=== PATIENT | female | born 1970 | race African-American/Black ===

== ENCOUNTER → 2016-11-16 | Outpatient (CLI) | payer OTHER ==
[2016-02-12 10:56] VITALS: BP 134/76
[~2016-11-16] MED LIST: CARV3.122 PO; CHOL500050 PO; DILT180C2 PO; HYDR10SY8 PO; HYDR25TA PO; HYDR50TA PO; LISI-338 PO; LISI2.5T PO; LOSA25TA4 PO; MEDR10TA3 PO; METF500T4 PO; OMEP40CA5 PO; OXYC-323 PO; PROAIR HFA8.5 GM INH; SIMV20TA3 PO; TRAZ100T12 PO; TRAZ150T55 PO; TRAZ50TA15 PO; TRIA80OI TP; VENL150T PO; VENL50TA PO; VENL75CA PO; ZIPR40CA3 PO; ZIPR60CA2 PO
--- NOTE | 2016-11-16 11:17 | RAD ---
CT chest without IV contrast History: Sarcoidosis, lymphadenopathy. Comparison: CT chest 01/30/2016. Technique: Helical CT of the chest was performed without intravenous contrast. Axial, sagittal, and coronal reconstructions were obtained. One or more of the following individualized dose reduction techniques were utilized for the study: Automated exposure control Adjustment of mA and/or kV according to patient's size Use of iterative reconstruction technique. Findings: Evaluation of vascular structures, solid organs, and for lymphadenopathy is limited by lack of intravenous contrast. Cardiac chambers appear borderline in size. Small pericardial effusion is seen. Trachea and mainstem bronchi appear patent. Azygos fissure is seen. Mild left axillary lymphadenopathy is again seen. For example, previously measured lymph node measures 2.9 x 1.4 cm in axial dimension, similar to previous study. There is an AP window lymph node which is measured at 3.7 x 1.4 cm (previously 3.8 x 1.3 cm), unchanged. Evaluation for hilar lymphadenopathy is limited, but hilar lymph nodes are likely unchanged. No acute airspace disease is seen. No significant pulmonary nodules are identified. Impression: No significant change in chest lymphadenopathy. No new lymphadenopathy is seen. While these findings are nonspecific, they would be compatible with provided history of sarcoidosis.
== END | disposition home or self-care (01) ==
LOC: CT 10:39
PROVIDERS: ATTEND Internal Medicine Pulmonary Disease
DX: D86.9 Sarcoidosis, unspecified (principal); R59.9 Enlarged lymph nodes, unspecified
CPT/HCPCS: 71250

== ENCOUNTER → 2016-11-26 | Outpatient (CLI) | payer OTHER ==
[2016-02-12 10:56] VITALS: BP 134/76
--- NOTE | 2016-11-26 11:44 | RAD ---
Left breast sonogram Clinical indications: Left breast thickening for 5 weeks. Findings: High-resolution sonography of the area of thickness indicated by the patient at the 10:00 position of the left breast 22 cm from the nipple was performed. No underlying focal sonographic abnormality is seen. Sonography of the left axillary region demonstrates no focal sonographic abnormality as well. IMPRESSION: No focal sonographic abnormality is seen corresponds to the area of thickening of the left breast as indicated by the patient. The patient is due for her yearly mammogram in one month. Therefore, recommend the patient to return for the yearly mammogram in one month. The technologist told the patient that she needs to return in one month for the mammogram. BI-RADS category 1. Negative study.
== END | disposition home or self-care (01) ==
LOC: KCIC US 10:43
PROVIDERS: ATTEND Obstetrics & Gynecology
DX: N64.59 Other signs and symptoms in breast (principal)
CPT/HCPCS: 76641

== ENCOUNTER → 2016-12-25 | Outpatient (CLI) | payer OTHER ==
[2016-02-12 10:56] VITALS: BP 134/76
--- NOTE | 2016-12-25 13:18 | KCIC ---
Bilateral digital screening mammograms with CAD: HISTORY Routine screening. COMPARISON Comparison is made to previous studies dated back to 01/27/2012. FINDINGS Breast density category A. The skin and nipples show no abnormalities. No abnormal lymph nodes are seen in the axilla. The breast parenchyma is predominately fatty. There continue be intramammary lymph nodes seen bilaterally. There are no other dominant masses, suspicious calcifications or architectural distortions. IMPRESSION No evidence of malignancy. Recommend routine annual mammographic screening. This study was interpreted with the benefit of Computerized Aided Detection (CAD). Mammography is not 100% sensitive in detecting breast cancer. Therefore, a self breast exam and a clinical breast exam are very important. A negative mammogram does not negate a clinically suspicious finding and should not result in a delay in biopsying a clinically suspicious abnormality. BI-RADS category 2: Benign. This patient's information has been entered into a reminder system for the patient to be notified with the results of this examination and a target date for her next mammograms. Electronically signed by: Loulou Brito MD (Dec 25, 2016 13:16:35)
== END | disposition home or self-care (01) ==
LOC: KCIC MAMMO 12:05
PROVIDERS: ATTEND Obstetrics & Gynecology
DX: Z12.31 Encounter for screening mammogram for malignant neoplasm of breast (principal)
CPT/HCPCS: G0202; 77067

== ENCOUNTER 2017-02-26 10:09 | Emergency (ER) | payer OTHER ==
[~2017-02-26] VITALS: Ht 157.5 cm; Wt 137.9 kg
[2017-02-26] MEDS ORDERED: IPRATRPIUM/ALBUTEROL 0.5/2.5MG 3 ML NEBU. NEB ONE (11:00)
--- NOTE | 2017-02-26 11:00 | EKG ---
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
--- NOTE | 2017-02-26 11:42 | RAD ---
Chest, 2 views, 02/26/2017: History: Cough, hemoptysis Comparison is made to a study from 12/29/2014. The heart is enlarged. The pulmonary vascularity is within normal limits. No pulmonary infiltrate is seen. There is no evidence of pleural fluid. IMPRESSION: 1. Moderate cardiomegaly. 2. No acute abnormality is detected.
[2017-02-26] MEDS ORDERED: DEXAMETHASONE 4 MG TABLET PO STA (11:51)
--- NOTE | 2017-02-26 11:53 | PHYS DOC ---
Past Medical History Past Medical History: A-Fib, Diabetes-Type II, High Cholesterol, Hypertension, Other Additional Past Medical Histor: PTSD, MORBID OBESITY, SARCOIDOSIS Past Surgical History: , Tubal ligation, Other Additional Past Surgical Histo: fibroids removed from uterus Alcohol Use: Occasionally Drug Use: None Adult General Chief Complaint Chief Complaint: COUGH HPI HPI Patient is a 46 year old female who presents with acute on chronic cough is worse over the past 2 days. States she has approximately 2 years of cough and intermittent chest tightness and dyspnea. She has seen [employer] dean and primary care and had PFTs and been placed on steroid inhalers and bronchodilator inhalers. These do not control her symptoms. She states in the past 2-3 days she has dealt with some nasal congestion, rhinorrhea, and increased cough; she was placed on amoxicillin by her primary care doctor for this. In the past 2 days, she has slight blood tinge to her rhinorrhea as well as her sputum cough. Her sputum is otherwise clear. She denies focal chest pain other than her chronic chest discomfort. She denies dyspnea beyond her chronic baseline. She denies leg pain or swelling, palpitations, diaphoresis, orthopnea , exertional dyspnea, abdominal pain, fever or chills, nausea or vomiting. Review of Systems Review of Systems Constitutional: Denies fever or chills [] Eyes: Denies change in visual acuity, redness, or eye pain [] HENT: Denies nasal congestion or sore throat [] Respiratory: Has chronic cough and shortness of breath [] Cardiovascular: No additional information not addressed in HPI [] GI: Denies abdominal pain, nausea, vomiting, bloody stools or diarrhea [] : Denies dysuria or hematuria [] Musculoskeletal: Denies back pain or joint pain [] Integument: Denies rash or skin lesions [] Neurologic: Denies headache, focal weakness or sensory changes [] Endocrine: Denies polyuria or polydipsia [] Current Medications Current Medications Current Medications Medications (Trade) Dose Ordered Sig/Jagjit Start Time Stop Time Status Last Admin Dose Admin Albuterol/ Ipratropium (Duoneb) 3 ml 1X ONCE 02/26/17 11:00 02/26/17 11:01 DC 02/26/17 11:00 3 ML Dexamethasone (Decadron) 10 mg 1X STAT 02/26/17 11:51 02/26/17 11:58 DC 02/26/17 12:00 10 MG Allergies Allergies Allergies Coded Allergies Type Severity Reaction Last Updated Verified No Known Drug Allergies 09/21/15 No Physical Exam Physical Exam Constitutional: Well developed, well nourished, no acute distress, non-toxic appearance. [] HENT: Normocephalic, atraumatic, bilateral external ears normal, oropharynx moist, no oral exudates, nose normal. [] Eyes: PERRLA, EOMI, conjunctiva normal, no discharge. [] Neck: Normal range of motion, no tenderness, supple, no stridor. [] Cardiovascular:Heart rate regular rhythm [] Lungs & Thorax: Frequent dry cough, minimal bilateral wheezing, no crackles, normal respiratory effort, speaking in full sentences [] Abdomen: Bowel sounds normal, soft, no tenderness. [] Skin: Warm, dry, no erythema, no rash. [] Back: Normal range of motion. [] Extremities: No tenderness, ROM intact, no edema, no palpable cord. [] Neurologic: Alert and oriented X 3, normal motor function, normal sensory function, no focal deficits noted. [] Psychologic: Affect normal, judgement normal, mood normal. [] Current Patient Data Vital Signs Vital Signs Date Time Temp Pulse Resp B/P Pulse Ox O2 Delivery O2 Flow Rate FiO2 02/26/17 12:04 84 18 124/69 99 Room Air 02/26/17 10:22 98.1 98.1 EKG EKG EKG as interpreted by me as normal sinus rhythm, rate 91, no ST-T changes, normal intervals, no ectopy Radiology/Procedures Radiology/Procedures Chest xray as interpreted by me with no acute cardiopulmonary disease process Course & Med Decision Making Course & Med Decision Making Pertinent Labs and Imaging studies reviewed. (See chart for details) She is feeling somewhat better after neb; lungs are clear to auscultation, some cough remains. Suspect acute on chronic bronchitis. Given dose of Decadron here. Otherwise appears very well on exam. Discussed concern of hemoptysis being a possible symptoms of pulmonary embolism. She does not feel that she is largely away from her baseline symptoms and does not want a workup for pulmonary embolism at this time. She was mostly coming to the emergency department for another opinion to manage her chronic symptoms in light of recent diagnosis of URI and sinusitis. She has inhalers at home for respiratory symptoms. Encouraged to follow-up closely with her [employer] dean and primary care doctor. Return precautions given. She understands and agrees with plan. Dave Disclaimer Dave Disclaimer This electronic medical record was generated, in whole or in part, using a voice recognition dictation system. Departure Departure Impression: Primary Impression: Cough Disposition: HOME, SELF-CARE Condition: STABLE Referrals: PATRICIA AGUILAR (PCP) Patient Instructions: Acute Bronchitis, [id number], Sarcoidosis Additional Instructions: Follow-up with your primary care doctor and college [employer] dean within one week. Return for any concerns. Elliot MARTINEZ MD Feb 26, 2017 11:53
[2017-02-26 12:04] VITALS: BP 124/69
== END 2017-02-26 12:38 | disposition home or self-care (01) ==
LOC: ER 10:09
DX: R05 Cough (principal); R06.2 Wheezing; R07.89 Other chest pain; R06.02 Shortness of breath; R09.81 Nasal congestion; J34.89 Other specified disorders of nose and nasal sinuses; I48.91 Unspecified atrial fibrillation; E11.9 Type 2 diabetes mellitus without complications; E78.00 Pure hypercholesterolemia, unspecified; I10 Essential (primary) hypertension; E66.01 Morbid (severe) obesity due to excess calories; F43.10 Post-traumatic stress disorder, unspecified; Z68.43 Body mass index [BMI] 50.0-59.9, adult; Z79.899 Other long term (current) drug therapy
CPT/HCPCS: 71020; 93005; 94250; 94640; 99284; J7620; J8540

== ENCOUNTER 2017-03-23 06:47 | Emergency (ER) | payer OTHER ==
[~2017-03-23] VITALS: Ht 170.2 cm; Wt 137.9 kg
--- NOTE | 2017-03-23 07:07 | PHYS DOC ---
Past Medical History Past Medical History: A-Fib, Diabetes-Type II, High Cholesterol, Hypertension, Other Additional Past Medical Histor: PTSD, MORBID OBESITY, SARCOIDOSIS Past Surgical History: , Tubal ligation, Other Additional Past Surgical Histo: fibroids removed from uterus Alcohol Use: None Drug Use: None Adult General Chief Complaint Chief Complaint: ABDOMINAL PAIN HPI HPI Patient is a 46 year old female who presents with lower abdominal cramping pain with intermittent loose stools. Patient states that for the last 8 months she feels bloated after she eats him or get intermittent left lower abdominal pain that "tells her to need to go to the bathroom". When she has a bowel movement the pain will resolve. The pain today started yesterday and did not resolve with loose stools that she had overnight. She has not discussed these symptoms with her doctor because normally she will take milk of magnesia and Maalox and the symptoms will resolve. She did attempt these medications without improvement today. She denies nausea or vomiting, no fevers. The pain is generalized but more prominent in the left lower quadrant. Her only prior abdominal surgeries was a . Patient is concerned that she has IBS, although she was not sure what this was. Review of Systems Review of Systems Constitutional: Denies fever or chills [] Eyes: Denies change in visual acuity, redness, or eye pain [] HENT: Denies nasal congestion or sore throat [] Respiratory: Denies cough or shortness of breath [] Cardiovascular: Denies chest pain GI: Per history of present illness : Denies dysuria or hematuria [] Musculoskeletal: Denies back pain or joint pain [] Integument: Denies rash or skin lesions [] Neurologic: Denies headache, focal weakness or sensory changes [] Current Medications Current Medications Current Medications Medications (Trade) Dose Ordered Sig/Jagjit Start Time Stop Time Status Last Admin Dose Admin Info (Do NOT chart on this entry -- for MONITORING) 1 each PRN DAILY PRN 03/23/17 08:15 03/25/17 08:14 Iohexol (Omnipaque 300 Mg/ml) 75 ml 1X ONCE 03/23/17 08:15 03/23/17 08:16 UNV Morphine Sulfate 4 mg 1X ONCE 03/23/17 07:15 03/23/17 07:16 DC 03/23/17 07:35 4 MG Ondansetron HCl (Zofran) 4 mg 1X ONCE 03/23/17 07:15 03/23/17 07:16 DC 03/23/17 07:33 4 MG Allergies Allergies Allergies Coded Allergies Type Severity Reaction Last Updated Verified No Known Drug Allergies 09/21/15 No Physical Exam Physical Exam Constitutional: Well developed, well nourished, no acute distress, non-toxic appearance. Morbid obesity HENT: Normocephalic, atraumatic, bilateral external ears normal, oropharynx moist, no oral exudates, nose normal. [] Eyes: PERRLA, EOMI, conjunctiva normal, no discharge. [] Neck: Normal range of motion, no tenderness, supple, no stridor. [] Cardiovascular:Heart rate regular with regular rhythm, no murmur [] Lungs & Thorax: Bilateral breath sounds clear to auscultation, no wheeze or crackles, moderate air movement Abdomen: Bowel sounds normal, soft, nondistended, generalized mild tenderness to palpation without peritoneal signs or guarding, negative McBurney's Skin: Warm, dry, no erythema, no rash. [] Back: No tenderness, no CVA tenderness. [] Extremities: No tenderness, no cyanosis, no clubbing, ROM intact, trace bilateral lower extremity edema. [] Neurologic: Alert and oriented X 3, normal motor function, normal sensory function, no focal deficits noted. [] Current Patient Data Vital Signs Vital Signs Date Time Temp Pulse Resp B/P (MAP) Pulse Ox O2 Delivery O2 Flow Rate FiO2 03/23/17 07:53 89 24 117/81 (93) 93 Room Air 03/23/17 06:55 98.6 98.6 Lab Values Laboratory Tests Test 03/23/17 06:53 03/23/17 07:02 03/23/17 07:50 Sodium Level 138 mmol/L (136-145) Potassium Level 3.7 mmol/L (3.5-5.1) Chloride Level 104 mmol/L (98-107) Carbon Dioxide Level 23 mmol/L (21-32) Anion Gap 11 (6-14) Blood Urea Nitrogen 5 mg/dL (7-20) L Creatinine 0.7 mg/dL (0.6-1.0) Estimated GFR (Cockcroft-Gault) 109.0 Glucose Level 150 mg/dL (70-99) H Calcium Level 8.7 mg/dL (8.5-10.1) POC Urine HCG, Qualitative Hcg negative (Negative) Urine Collection Type Unknown Urine Color [place] Urine Clarity Cloudy Urine pH 6.0 Urine Specific [place] 1.025 Urine Protein Negative mg/dL (NEG-TRACE) Urine Glucose (UA) Negative mg/dL (NEG) Urine Ketones (Stick) Negative mg/dL (NEG) Urine Blood Negative (NEG) Urine Nitrite Negative (NEG) Urine Bilirubin Small (NEG) Urine Urobilinogen Dipstick 0.2 mg/dL (0.2 mg/dL) Urine Leukocyte Esterase Negative (NEG) Urine RBC 1-2 /HPF (0-2) Urine WBC Occ /HPF (0-4) Urine Squamous Epithelial Cells Mod /LPF Urine Bacteria Mod /HPF (0-FEW) Urine Mucus Marked /LPF Laboratory Tests 03/23/17 06:53 EKG EKG [] Radiology/Procedures Radiology/Procedures [] Course & Med Decision Making Course & Med Decision Making Pertinent Labs and Imaging studies reviewed. (See chart for details) IV established, lab work obtained, IV morphine and Zofran given. Dragon Disclaimer Dragon Disclaimer This electronic medical record was generated, in whole or in part, using a voice recognition dictation system. Departure Departure Impression: Primary Impression: Colitis Disposition: 01 HOME, SELF-CARE Condition: STABLE Referrals: PATRICIA AGUILAR (PCP) Scripts Hydrocodone/Apap 5-325 (NORCO 5-325 TABLET) 1 Each Tablet 1-2 EACH PO PRN Q6HRS Y for PAIN, #8 as needed for pain Prov: CHELITA MONTES MD 03/23/17 Metronidazole (FLAGYL) 500 Mg Tablet 500 MG PO TID for 10 Days, #30 TAB Prov: CHELITA MONTES MD 03/23/17 CHELITA MONTES MD March 23, 2017 07:07
[2017-03-23] MEDS ORDERED: MORPHINE SULFATE 4 MG/ML DISP.SYRIN. IV ONE (07:15)
[2017-03-23] MEDS ORDERED: ONDANSETRON PF 4 MG/2 ML VIAL. IV ONE (07:15)
[2017-03-23 08:00] LABS: CALCIUM 8.7 mg/dL (8.5-10.1); CREATININE 0.7 mg/dL (0.6-1.0); POTASSIUM 3.7 mmol/L (3.5-5.1)
[2017-03-23 08:04] LABS: BILIRUBIN,URINE SMALL (NEG); GLUCOSE,URINE NEGATIVE (NEG); NITRITE,URINE NEGATIVE (NEG); PROTEIN,URINE NEGATIVE (NEG-TRACE); UROBILINOGEN,URINE 0.2 mg/dL (0.2 mg/dL)
[2017-03-23] MEDS ORDERED: CONTRAST GIVEN MC PRN (08:15)
[2017-03-23] MEDS ORDERED: IOHEXOL 300 MG/ML 75 ML VIAL IV ONE ×2 (08:15)
[2017-03-23 08:19] LABS: BACTERIA,URINE MOD /HPF (0-FEW); SQUAMOUS EPITHELIAL CELL,UR MOD /LPF; WBC,URINE OCC /HPF (0-4)
--- NOTE | 2017-03-23 09:06 | RAD ---
Examination: CT of the abdomen pelvis with IV contrast History: History of abdominal pain with comparison: 01/30/2016 Technique: Axial CT images of the abdomen pelvis performed with IV contrast. Coronal and sagittal reformats are performed PQRS Compliance Statement: One or more of the following individualized dose reduction techniques were utilized for this examination: 1. Automated exposure control 2. Adjustment of the mA and/or kV according to patient size 3. Use of iterative reconstruction technique Findings: Minimal atelectasis identified in the left lung base. No evidence of free air identified in the abdomen. The visualized liver, spleen, adrenals grossly appears unremarkable. The gallbladder is mildly distended. The visualized pancreas grossly appears unremarkable. The stomach is mildly distended. The small bowel is nondilated The appendix grossly appears unremarkable. There is mild thickened appearance of the wall of the ascending colon, distal transverse colon and the descending colon could be secondary to nondistention or mild colitis. There is questionable minimal surrounding fat stranding about the distal transverse colon. The uterus is enlarged with the multiple fibroids. There are cystic changes identified in the uterus with the largest measuring 4.6 cm could be cystic degeneration of fibroids. Few calcifications identified in the uterus likely fibroid calcifications. The urinary bladder is minimally distended The bilateral kidneys enhance symmetrically. Punctate 1 mm intrarenal collecting system calculus in the identified in the inferior pole of the left kidney. No evidence of hydronephrosis. The caliber of the aorta grossly appears unremarkable Small retroperitoneal lymph nodes and celiac lymph nodes grossly similar to prior exam with the largest measuring 1 cm. Prominent appearing bilateral inguinal lymph nodes identified. The vertebral body heights are maintained. Mild degenerative changes identified in the visualized thoracal lumbar spine Impression: 1. Mild thickened appearance of the wall of the ascending colon, distal transverse colon and the descending colon with minimal surrounding fat stranding about the distal transverse colon could be secondary to nondistention or mild colitis. 2. Fibroid uterus with calcifications and cystic changes in the uterus probably cystic degeneration of fibroid with the largest measuring 4.6 cm. 3. Celiac and retroperitoneal lymphadenopathy similar to prior exam. Few prominent bilateral inguinal lymph nodes identified with the largest measuring 2.9 cm on the left.
[2017-03-23] MEDS ORDERED: METR500T PO (09:11)
[2017-03-23] MEDS ORDERED: HYDR-971 PO (09:11)
[2017-03-23 09:24] VITALS: BP 128/65
== END 2017-03-23 09:42 | disposition home or self-care (01) ==
LOC: ER 06:47
DX: K52.9 Noninfective gastroenteritis and colitis, unspecified (principal); E66.01 Morbid (severe) obesity due to excess calories; I48.91 Unspecified atrial fibrillation; E11.9 Type 2 diabetes mellitus without complications; E78.00 Pure hypercholesterolemia, unspecified; I10 Essential (primary) hypertension; F43.10 Post-traumatic stress disorder, unspecified; D86.9 Sarcoidosis, unspecified; Z68.42 Body mass index [BMI] 45.0-49.9, adult
CPT/HCPCS: 36415; 74177; 80048; 81001; 81025; 96374; 96375; 99285; J2270; J2405; Q9967

== ENCOUNTER → 2017-08-19 | Outpatient (CLI) | payer OTHER ==
[~2017-08-19] MED LIST changes: +HYDR-971 PO; +HYDR10SY16 PO; -HYDR10SY8 PO; +METR500T PO; +TRAZ150T49 PO; -TRAZ150T55 PO
--- NOTE | 2017-08-19 15:08 | RAD ---
Indication follow-up pulmonary nodule. Axial noncontrast imaging to the chest was performed and is compared to a study November 16, 2016. There is moderate left axillary adenopathy appearing similar to the previous exam. Mild right axillary adenopathy is also seen and appears similar. No acute finding is seen in the visualized upper abdomen. There is a minute, 2 mm, left intrarenal calculus. Significant mediastinal or hilar adenopathy is not seen. Trace amount of pericardial fluid seen on the previous examination has resolved. An Acute parenchymal infiltrate in either lung is not seen. There is some minimal volume loss in the left lower lobe likely reflecting scar appearing similar.. A dominant soft tissue mass in either lung is not seen. There is mild cardiomegaly, similar. IMPRESSION: No acute finding seen in the chest. No dominant soft tissue mass seen in either lung. Axillary adenopathy, left greater than right, appears stable PQRS Compliance Statement: One or more of the following individualized dose reduction techniques were utilized for this examination: 1. Automated exposure control 2. Adjustment of the mA and/or kV according to patient size 3. Use of iterative reconstruction technique
== END | disposition home or self-care (01) ==
LOC: CT 09:53
PROVIDERS: ATTEND Internal Medicine Pulmonary Disease
DX: R91.1 Solitary pulmonary nodule (principal)
CPT/HCPCS: 71250

== ENCOUNTER → 2018-10-21 | Outpatient (CLI) | payer OTHER ==
[~2018-10-21] MED LIST changes: +CARV3.1210 PO; -CARV3.122 PO; +HYDR-3164 PO; -HYDR-971 PO; -LOSA25TA4 PO; +LOSA25TA54 PO; +METF500T16 PO; -METF500T4 PO; -OXYC-323 PO; +OXYC1TAB15 PO; +TRAZ-85 PO; +TRAZ-86 PO; -TRAZ100T12 PO; -TRAZ50TA15 PO
--- NOTE | 2018-10-21 12:57 | RAD ---
CT HEAD INDICATION: Headache COMPARISON: None Available. Exposure: One or more of the following individualized dose reduction techniques were utilized for this examination: 1. Automated exposure control 2. Adjustment of the mA and/or kV according to patient size 3. Use of iterative reconstruction technique TECHNIQUE: 5 mm contiguous axial images were obtained from the skull base to the vertex in both bone and soft tissue algorithm. FINDINGS: No abnormal attenuation within the brain parenchyma. No evidence of acute intracranial hemorrhage. No extra-axial fluid collections. No mass effect or midline shift. Ventricular size is appropriate. Basal cisterns are patent. No fractures identified.Morgan-white differentiation is preserved.Globes and orbits are within normal limits. Paranasal sinuses and mastoid air cells are clear. IMPRESSION: No acute intracranial findings. Electronically signed by: Kb Cardenas MD (10/21/2018 12:53 PM) [place] [id number]
== END | disposition home or self-care (01) ==
LOC: CT 12:31
PROVIDERS: ATTEND Internal Medicine
DX: G44.52 New daily persistent headache (NDPH) (principal)
CPT/HCPCS: 70450

== ENCOUNTER 2019-01-16 14:12 | Inpatient (IN) | payer OTHER ==
[~2019-01-16] VITALS: Ht 157.5 cm; Wt 142.6 kg
[~2019-01-16 14:12] MED LIST changes: +ALBU2.5V8 INH; -PROAIR HFA8.5 GM INH; +TRAZ-118 PO; -TRAZ-85 PO
[2019-01-16] MEDS ORDERED: METOCLOPRAMIDE HCL 10 MG/2 ML VIAL. IV ONE (16:00)
[2019-01-16] MEDS ORDERED: FAMOTIDINE 20 MG/2 ML VIAL IVP ONE (16:00)
[2019-01-16 16:13] LABS: BASO # 0.1 x10^3/uL (0.0-0.2); BASO % 1 % (0-3); EOS # 0.1 x10^3/uL (0.0-0.7); EOS % 1 % (0-3); HEMATOCRIT 40.8 % (36.0-47.0); HEMOGLOBIN 12.7 g/dL (12.0-15.5); LYMPH # 1.9 x10^3/uL (1.0-4.8); LYMPH % 35 % (24-48); MEAN CORPUSCULAR HEMOGLOBIN 26 pg (25-35); MEAN CORPUSCULAR HGB CONC 31 g/dL (31-37); MEAN CORPUSCULAR VOLUME 82 fL (79-100); MONO # 0.7 x10^3/uL (0.0-1.1); MONO % 13 % (0-9); NEUT # 2.7 x10^3uL (1.8-7.7); NEUT % 50 % (31-73); PLATELET COUNT 257 x10^3/uL (140-400); RED BLOOD COUNT 4.99 x10^6/uL (3.50-5.40); RED CELL DISTRIBUTION WIDTH 15.2 % (11.5-14.5); WHITE BLOOD COUNT 5.4 x10^3/uL (4.0-11.0)
[2019-01-16 16:15] LABS: BILIRUBIN,URINE MODERATE (NEG); CLARITY,URINE CLEAR; COLOR,URINE AMBER; NITRITE,URINE NEGATIVE (NEG); PROTEIN,URINE >=300 mg/dL (NEG-TRACE)
[2019-01-16 16:26] LABS: CREATININE 0.9 mg/dL (0.6-1.0); GFR 80.9; POTASSIUM 3.1 mmol/L (3.5-5.1)
[2019-01-16 16:31] LABS: ALBUMIN 3.3 g/dL (3.4-5.0); ALBUMIN/GLOBULIN RATIO 0.8 (1.0-1.7); TOTAL BILIRUBIN 1.5 mg/dL (0.2-1.0); TOTAL PROTEIN 7.3 g/dL (6.4-8.2)
[2019-01-16] MEDS ORDERED: IOHEXOL 350 MG/ML 100 ML VIAL. IV ONE (16:45)
[2019-01-16] MEDS ORDERED: CONTRAST GIVEN. MC PRN (16:45)
[2019-01-16 16:48] LABS: BACTERIA,URINE MODERATE /HPF (0-FEW); HYALINE CASTS, URINE OCCASIONAL /HPF; RBC,URINE 0 /HPF (0-2); SQUAMOUS EPITHELIAL CELL,UR FEW /LPF
--- NOTE | 2019-01-16 17:25 | PHYS DOC ---
Past Medical History Past Medical History: A-Fib, Diabetes-Type II, High Cholesterol, Hypertension, Other Additional Past Medical Histor: PTSD, MORBID OBESITY, SARCOIDOSIS Past Surgical History: , Tubal ligation, Other Additional Past Surgical Histo: fibroids removed from uterus Alcohol Use: None Drug Use: None Adult General Chief Complaint Chief Complaint: ABDOMINAL PAIN HPI HPI 48-year-old morbidly obese female presents with a variety of complaints today. She has had a lot of upper abdominal/epigastric pain and what sounds like some reflux symptoms. She states she does have a lot of sour burning taste in her mouth in the morning when she wakes up. She is also says that she has some increased swelling in her lower extremities. Most concerning, the patient states that she has had some chest discomfort shortness of breath and dyspnea on exertion. She states she is unable to walk even a few steps without becoming profoundly short of breath. This has been ongoing and progressive over the last several days. She denies any fever chills or sweats. She has not had any cough or congestion. She denies any hemoptysis. She is not had a blood clot in the past.[] Review of Systems Review of Systems Constitutional: Denies fever or chills [] Eyes: Denies change in visual acuity, redness, or eye pain [] HENT: Denies nasal congestion or sore throat [] Respiratory: Denies cough or shortness of breath [] Cardiovascular: No additional information not addressed in HPI [] GI: Denies abdominal pain, nausea, vomiting, bloody stools or diarrhea [] : Denies dysuria or hematuria [] Musculoskeletal: Denies back pain or joint pain [] Integument: Denies rash or skin lesions [] Neurologic: Denies headache, focal weakness or sensory changes [] Endocrine: Denies polyuria or polydipsia [] All other systems were reviewed and found to be within normal limits, except as documented in this note. Current Medications Current Medications Current Medications Medications (Trade) Dose Ordered Sig/Jagjit Start Time Stop Time Status Last Admin Dose Admin Famotidine (Pepcid Vial) 20 mg 1X ONCE 01/16/19 16:00 01/16/19 16:01 DC 01/16/19 16:15 20 MG Info (CONTRAST GIVEN -- Rx MONITORING) 1 each PRN DAILY PRN 01/16/19 16:45 01/18/19 16:44 Iohexol (Omnipaque 350 Mg/ml) 100 ml 1X ONCE 01/16/19 16:45 01/16/19 16:46 DC 01/16/19 17:20 100 ML Metoclopramide HCl (Reglan Vial) 10 mg 1X ONCE 01/16/19 16:00 01/16/19 16:01 DC 01/16/19 16:16 10 MG Metoprolol Tartrate (Lopressor Vial) 5 mg 1X ONCE 01/16/19 18:00 01/16/19 18:01 DC 01/16/19 18:07 5 MG Allergies Allergies Allergies Coded Allergies Type Severity Reaction Last Updated Verified No Known Drug Allergies 09/21/15 No Physical Exam Physical Exam Constitutional: Well developed, well nourished, mild distress, non-toxic appearance. [] HENT: Normocephalic, atraumatic, bilateral external ears normal, oropharynx moist, no oral exudates, nose normal. [] Eyes: PERRLA, EOMI, conjunctiva normal, no discharge. [] Neck: Normal range of motion, no tenderness, supple, no stridor. [] Cardiovascular: Tachycardic no murmur[] Lungs & Thorax: Bilateral breath sounds clear to auscultation [] Abdomen: Bowel sounds normal, soft, no tenderness, no masses, no pulsatile masses. [] Skin: Warm, dry, no erythema, no rash. [] Back: No tenderness, no CVA tenderness. [] Extremities: No tenderness, no cyanosis, no clubbing, ROM intact, no edema. [] Neurologic: Alert and oriented X 3, normal motor function, normal sensory function, no focal deficits noted. [] Psychologic: Extremely anxious. [] Current Patient Data Vital Signs Vital Signs Date Time Temp Pulse Resp B/P (MAP) Pulse Ox O2 Delivery O2 Flow Rate FiO2 01/16/19 17:27 114 199/107 (137) 95 Room Air 01/16/19 15:49 97.6 22 97.6 Lab Values Laboratory Tests Test 01/16/19 16:00 White Blood Count 5.4 x10^3/uL (4.0-11.0) Red Blood Count 4.99 x10^6/uL (3.50-5.40) Hemoglobin 12.7 g/dL (12.0-15.5) Hematocrit 40.8 % (36.0-47.0) Mean Corpuscular Volume 82 fL (79-100) Mean Corpuscular Hemoglobin 26 pg (25-35) Mean Corpuscular Hemoglobin Concent 31 g/dL (31-37) Red Cell Distribution Width 15.2 % (11.5-14.5) H Platelet Count 257 x10^3/uL (140-400) Neutrophils (%) (Auto) 50 % (31-73) Lymphocytes (%) (Auto) 35 % (24-48) Monocytes (%) (Auto) 13 % (0-9) H Eosinophils (%) (Auto) 1 % (0-3) Basophils (%) (Auto) 1 % (0-3) Neutrophils # (Auto) 2.7 x10^3uL (1.8-7.7) Lymphocytes # (Auto) 1.9 x10^3/uL (1.0-4.8) Monocytes # (Auto) 0.7 x10^3/uL (0.0-1.1) Eosinophils # (Auto) 0.1 x10^3/uL (0.0-0.7) Basophils # (Auto) 0.1 x10^3/uL (0.0-0.2) Urine Collection Type Void Urine Color Cyndie Urine Clarity Clear Urine pH 6.0 Urine Specific Barling >=1.030 Urine Protein >=300 mg/dL (NEG-TRACE) Urine Glucose (UA) Negative mg/dL (NEG) Urine Ketones (Stick) Trace mg/dL (NEG) Urine Blood Negative (NEG) Urine Nitrite Negative (NEG) Urine Bilirubin Moderate (NEG) Urine Urobilinogen Dipstick 1.0 mg/dL (0.2 mg/dL) Urine Leukocyte Esterase Negative (NEG) Urine RBC 0 /HPF (0-2) Urine WBC 5-10 /HPF (0-4) Urine Squamous Epithelial Cells Few /LPF Urine Bacteria Moderate /HPF (0-FEW) Urine Hyaline Casts Occasional /HPF Urine Mucus Mod /LPF Sodium Level 143 mmol/L (136-145) Potassium Level 3.1 mmol/L (3.5-5.1) L Chloride Level 103 mmol/L (98-107) Carbon Dioxide Level 28 mmol/L (21-32) Anion Gap 12 (6-14) Blood Urea Nitrogen 14 mg/dL (7-20) Creatinine 0.9 mg/dL (0.6-1.0) Estimated GFR (Cockcroft-Gault) 80.9 BUN/Creatinine Ratio 16 (6-20) Glucose Level 114 mg/dL (70-99) H Calcium Level 9.0 mg/dL (8.5-10.1) Total Bilirubin 1.5 mg/dL (0.2-1.0) H Aspartate Amino Transferase (AST) 26 U/L (15-37) Alanine Aminotransferase (ALT) 20 U/L (14-59) Alkaline Phosphatase 90 U/L (46-116) Troponin I Quantitative 0.029 ng/mL (0.000-0.055) AF-Aim-O-Type Natriuretic Peptide 1308 pg/mL (0-124) H Total Protein 7.3 g/dL (6.4-8.2) Albumin 3.3 g/dL (3.4-5.0) L Albumin/Globulin Ratio 0.8 (1.0-1.7) L Lipase 178 U/L (73-393) Thyroid Stimulating Hormone (TSH) 2.466 uIU/mL (0.358-3.74) Laboratory Tests 01/16/19 16:00 Laboratory Tests 01/16/19 16:00 EKG EKG [] Interpretation Time: EKG: Sinus tachycardia rate of [address]-T changes Radiology/Procedures Radiology/Procedures []REASON: dyspnea on exertion PROCEDURE: CT ANGIOGRAPHY CHEST CTA chest with contrast and CT abdomen pelvis with contrast dated 01/16/2019. COMPARISON: 08/19/2017 INDICATION: Dyspnea on exertion.. TECHNIQUE: Per contiguous axial imaging the chest performed following the intravenous administration of 100 cc Omnipaque 350. Study was performed as dedicated PE protocol with thin cut coronal MIPS 3-D reconstruction. In addition, axial imaging of the abdomen and pelvis performed in the portal venous phase. One or more of the following individualized dose reduction techniques were utilized for this examination: 1. Automated exposure control 2. Adjustment of the mA and/or kV according to patient size 3. Use of iterative reconstruction technique. FINDINGS: Contrast bolus is adequate. No evidence of central, lobar or segmental pulmonary embolus. Subsegmental branches are not well evaluated based on technique. There is mild dilation of the main pulmonary artery measuring 4 cm transverse. Heart size mildly enlarged. No pericardial effusion. There are mildly enlarged mediastinal and bilateral hilar lymph nodes. Subcarinal lymph node measures 1.9 cm short axis. Right hilar lymph node measures 1.2 cm short axis. There are additional calcified mediastinal and hilar lymph nodes. Thyroid gland unremarkable. Central airways are patent. Mild emphysema. Patchy and linear opacities in the left lower lobe with patchy groundglass opacity. No consolidation or pleural effusion. No pneumothorax. The liver is enlarged with hypertrophy of the left lobe. Spleen is normal in size. Pancreas, adrenal glands and kidneys are unremarkable. No hydronephrosis. Gallbladder unremarkable. Unopacified GI tract is normal in caliber and contour. No focal bowel wall thickening. No inflammatory stranding in the mesentery. There is a small amount of ascites throughout. Scattered diverticula throughout the colon. The appendix is not clearly identified. No inflammatory changes in the right lower quadrant. Images the pelvis show calcified nodular foci at the uterus, likely fibroids. There are mildly enlarged bilateral external iliac chain lymph nodes measuring up to 1.7 cm on the left. Borderline enlarged bilateral inguinal lymph nodes. Ovaries are not well evaluated. There may be partial calcification of the left ovary. Bone windows show no acute findings. Multilevel spondylosis. IMPRESSION CHEST: 1. No evidence of central, lobar or segmental pulmonary embolus. 2. Dilation of the main pulmonary artery could be related to underlying pulmonary artery hypertension. 3. Cardiomegaly. 4. Mild mediastinal and hilar lymphadenopathy, nonspecific but not significantly changed from prior exam. 5. Mild emphysema. Impression abdomen pelvis: 1. Hepatomegaly with asymmetric hypertrophy of the left lobe and caudate. Underlying hepatocellular disease is not excluded. 2. Small amount of ascites with generalized anasarca. 3. Fibroid uterus. 4. Enlarged bilateral external iliac chain and inguinal lymph nodes, nonspecific. Consider infectious, inflammatory or neoplastic etiology. Impressions: PROCEDURE: VENOUS LOWER EXT BILATERAL Left leg venous Doppler study: Clinical indications: Left leg swelling. Findings: Duplex sonography (including hernandez scale evaluation and color flow and waveform spectral analysis) of the proximal aspect of the greater saphenous vein and the proximal aspect of the profunda femoral vein and the entire length of the common femoral and superficial femoral and popliteal veins and the tibioperoneal trunk and the proximal aspect of the posterior tibial and peroneal veins of the left leg was performed. Normal compressibility, augmentation of color Doppler flow after calf compression, and respiratory variation of Doppler flow is seen. Thus, there are no sonographic findings of deep venous thrombosis within these veins. Impression: There are no sonographic findings of deep venous thrombosis within the veins discussed above of the left lower extremity. Right leg venous Doppler study: Clinical indications: Right leg swelling. Findings: Duplex sonography (including hernandez scale evaluation and color flow and waveform spectral analysis) of the proximal aspect of the greater saphenous vein and proximal aspect of the profunda femoral vein and the entire length of the common femoral and superficial femoral and popliteal veins and the tibioperoneal trunk and the proximal aspect of the posterior tibial and peroneal veins of the right leg was performed. Normal compressibility, augmentation of color Doppler flow after calf compression, and respiratory variation of Doppler flow is seen. Thus, there are no sonographic findings of deep venous thrombosis within these veins. Impression: There are no sonographic findings of deep venous thrombosis within the veins discussed above of the right lower extremity. Course & Med Decision Making Course & Med Decision Making Pertinent Labs and Imaging studies reviewed. (See chart for details) [] Dragon Disclaimer Dragon Disclaimer This electronic medical record was generated, in whole or in part, using a voice recognition dictation system. Departure Departure Impression: Primary Impression: Tachycardia Additional Impression: Dyspnea on exertion Disposition: 09 ADMITTED INPATIENT Admitting Physician: Abril Santoyo Condition: GUARDED Referrals: PATRICIA AGUILAR MD (PCP) Problem Qualifiers HORACE NG DO Jan 16, 2019 17:25
--- NOTE | 2019-01-16 17:34 | RAD ---
Left leg venous Doppler study: Clinical indications: Left leg swelling. Findings: Duplex sonography (including hernandez scale evaluation and color flow and waveform spectral analysis) of the proximal aspect of the greater saphenous vein and the proximal aspect of the profunda femoral vein and the entire length of the common femoral and superficial femoral and popliteal veins and the tibioperoneal trunk and the proximal aspect of the posterior tibial and peroneal veins of the left leg was performed. Normal compressibility, augmentation of color Doppler flow after calf compression, and respiratory variation of Doppler flow is seen. Thus, there are no sonographic findings of deep venous thrombosis within these veins. Impression: There are no sonographic findings of deep venous thrombosis within the veins discussed above of the left lower extremity. Right leg venous Doppler study: Clinical indications: Right leg swelling. Findings: Duplex sonography (including hernandez scale evaluation and color flow and waveform spectral analysis) of the proximal aspect of the greater saphenous vein and proximal aspect of the profunda femoral vein and the entire length of the common femoral and superficial femoral and popliteal veins and the tibioperoneal trunk and the proximal aspect of the posterior tibial and peroneal veins of the right leg was performed. Normal compressibility, augmentation of color Doppler flow after calf compression, and respiratory variation of Doppler flow is seen. Thus, there are no sonographic findings of deep venous thrombosis within these veins. Impression: There are no sonographic findings of deep venous thrombosis within the veins discussed above of the right lower extremity. Electronically signed by: Meng Mejia MD (01/16/2019 5:32 PM) [facility]
--- NOTE | 2019-01-16 17:46 | RAD ---
CTA chest with contrast and CT abdomen pelvis with contrast dated 01/16/2019. COMPARISON: 08/19/2017 INDICATION: Dyspnea on exertion.. TECHNIQUE: Per contiguous axial imaging the chest performed following the intravenous administration of 100 cc Omnipaque 350. Study was performed as dedicated PE protocol with thin cut coronal MIPS 3-D reconstruction. In addition, axial imaging of the abdomen and pelvis performed in the portal venous phase. One or more of the following individualized dose reduction techniques were utilized for this examination: 1. Automated exposure control 2. Adjustment of the mA and/or kV according to patient size 3. Use of iterative reconstruction technique. FINDINGS: Contrast bolus is adequate. No evidence of central, lobar or segmental pulmonary embolus. Subsegmental branches are not well evaluated based on technique. There is mild dilation of the main pulmonary artery measuring 4 cm transverse. Heart size mildly enlarged. No pericardial effusion. There are mildly enlarged mediastinal and bilateral hilar lymph nodes. Subcarinal lymph node measures 1.9 cm short axis. Right hilar lymph node measures 1.2 cm short axis. There are additional calcified mediastinal and hilar lymph nodes. Thyroid gland unremarkable. Central airways are patent. Mild emphysema. Patchy and linear opacities in the left lower lobe with patchy groundglass opacity. No consolidation or pleural effusion. No pneumothorax. The liver is enlarged with hypertrophy of the left lobe. Spleen is normal in size. Pancreas, adrenal glands and kidneys are unremarkable. No hydronephrosis. Gallbladder unremarkable. Unopacified GI tract is normal in caliber and contour. No focal bowel wall thickening. No inflammatory stranding in the mesentery. There is a small amount of ascites throughout. Scattered diverticula throughout the colon. The appendix is not clearly identified. No inflammatory changes in the right lower quadrant. Images the pelvis show calcified nodular foci at the uterus, likely fibroids. There are mildly enlarged bilateral external iliac chain lymph nodes measuring up to 1.7 cm on the left. Borderline enlarged bilateral inguinal lymph nodes. Ovaries are not well evaluated. There may be partial calcification of the left ovary. Bone windows show no acute findings. Multilevel spondylosis. IMPRESSION CHEST: 1. No evidence of central, lobar or segmental pulmonary embolus. 2. Dilation of the main pulmonary artery could be related to underlying pulmonary artery hypertension. 3. Cardiomegaly. 4. Mild mediastinal and hilar lymphadenopathy, nonspecific but not significantly changed from prior exam. 5. Mild emphysema. Impression abdomen pelvis: 1. Hepatomegaly with asymmetric hypertrophy of the left lobe and caudate. Underlying hepatocellular disease is not excluded. 2. Small amount of ascites with generalized anasarca. 3. Fibroid uterus. 4. Enlarged bilateral external iliac chain and inguinal lymph nodes, nonspecific. Consider infectious, inflammatory or neoplastic etiology. Electronically signed by: Vaibhav Valle MD (01/16/2019 5:43 PM) [id number]
[2019-01-16] MEDS ORDERED: METOPROLOL TARTRATE 5 MG/5 ML VIAL. IVP ONE (18:00)
[2019-01-16] MEDS ORDERED: HYDROcodone/APAP 5/325MG 1 TAB TABLET PO PRN (19:15)
[2019-01-16] MEDS ORDERED: SIMETHICONE 80 MG TAB.CHEW PO PRN (19:15)
[2019-01-16] MEDS ORDERED: ALBUTEROL SULFATE 2.5 MG/3 ML NEBU. INH PRN (19:15)
[2019-01-16] MEDS ORDERED: oxyCODONE/APAP 5/325 1 TAB TABLET PO PRN (19:15)
--- NOTE | 2019-01-16 19:25 | PDOC1 ---
History and Physical Date of Admission Date of Admission DATE: 01/16/19 TIME: 19:16 Identification/Chief Complaint Chief Complaint Epigastric pain, nausea, fullness 3 weeks Source Source: Caregiver, Chart review, Patient History of Present Illness History of Present Illness 48-year-old morbidly obese -German female with a BMI of 55.6, actually recently lost 100 pounds by decreasing oral intake. She admits for the past month she has not been watching her diet, having a high salt intake. She comes in because of abdominal pain, nausea but no emesis, feeling of fullness 3 weeks intermittent. She is tachycardic. Supposed to be on Cardizem unknown dose but she claims she stopped it because of fear that it was the medication causing high protein in her blood and she could not be a plasma donor and she needed to be a plasam donor for Money Her CAT scan abdomen and pelvis had a lot of unimpressive findings and I provided her a copy and we did go one by one as to the numerous results including uterine Fibroids, no evidence of colitis, fatty liver etc. There is also no evidence of PE to explain the tachy But she is supposed to be on Cardizem as mentioned above Lopressor has been given with minimal relief Blood pressure on the high side Total bili 1.5 with some abdominal pain. She complains of mostly epigastric fullness Prominent pulmonary arterial knob with no history of COPD or at least only asthma or bronchitis- she mentions her roommate chain smoked and so she left Otherwise no known cardiac problems. Cards was consulted for the tachycardia Past Medical History Cardiovascular: HTN Pulmonary: No pertinent hx, Other CENTRAL NERVOUS SYSTEM: Other GI: No pertinent hx Heme/Onc: No pertinent hx Hepatobiliary: No pertinent hx Psych: Anxiety, Bipolar Musculoskeletal: Osteoarthritis Rheumatologic: No pertinent hx Infectious disease: No pertinent hx Renal/: Urinary Incontinence, Other Endocrine: Diabetes Past Surgical History Past Surgical History: Family History Family History: Diabetes, Hypertension Social History Smoke: No ALCOHOL: none Drugs: None Current Medications Current Medications Current Medications Metoclopramide HCl (Reglan Vial) 10 mg 1X ONCE IV Last administered on at 16:16; Start 01/16/19 at 16:00; Stop 01/16/19 at 16:01; Status DC Famotidine (Pepcid Vial) 20 mg 1X ONCE IVP Last administered on 01/16/19at 16: 15; Start 01/16/19 at 16:00; Stop 01/16/19 at 16:01; Status DC Iohexol (Omnipaque 350 Mg/ml) 100 ml 1X ONCE IV Last administered on at 17:20; Start 01/16/19 at 16:45; Stop 01/16/19 at 16:46; Status DC Info (CONTRAST GIVEN -- Rx MONITORING) 1 each PRN DAILY PRN MC SEE COMMENTS; Start 01/16/19 at 16:45; Stop 01/18/19 at 16:44 Metoprolol Tartrate (Lopressor Vial) 5 mg 1X ONCE IVP Last administered on 09/26at 18:07; Start 01/16/19 at 18:00; Stop 01/16/19 at 18:01; Status DC Albuterol Sulfate (Ventolin Neb Soln) 2.5 mg PRN Q6HRS PRN INH SHORTNESS OF BREATH; Start 01/16/19 at 19:15; Status UNV Carvedilol (Coreg) 3.125 mg BIDWMEALS PO ; Start 01/17/19 at 08:00; Status UNV Acetaminophen/ Hydrocodone Bitart (Lortab 5/325) 1 tab PRN Q6HRS PRN PO PAIN; Start 01/16/19 at 19:15; Status UNV Losartan Potassium (Cozaar) 25 mg DAILY PO ; Start 01/17/19 at 09:00; Status UNV Oxycodone/ Acetaminophen (Percocet 5/325) 1 tab PRN Q6HRS PRN PO PAIN; Start at 19:15; Status UNV Trazodone HCl (Desyrel) 50 mg HS PO ; Start 01/16/19 at 21:00; Status UNV Non-Formulary Medication (Cholecalciferol (Vitamin D3) (Vitamin D)) 50,000 unit WEEKLY PO ; Start 01/23/19 at 09:00; Status UNV Non-Formulary Medication (Hydroxyzine Hcl ) 10 mg TID PO ; Start 01/16/19 at 21: 00; Status UNV Non-Formulary Medication (Lisinopril ) 2.5 mg DAILY PO ; Start 01/17/19 at 09:00 ; Status UNV Non-Formulary Medication (Medroxyprogesterone Acetate ) 10 mg DAILY PO ; Start 01/17/19 at 09:00; Status UNV Non-Formulary Medication (Metformin Hcl ) 1,000 mg BIDBFRMEAL PO ; Start at 07:30; Status UNV Non-Formulary Medication (Venlafaxine Hcl (Venlafaxine Hcl Er)) 150 mg DAILY PO ; Start 01/17/19 at 09:00; Status UNV Non-Formulary Medication (Ziprasidone Hcl (Geodon)) 240 mg HS PO ; Start at 21:00; Status UNV Active Scripts Active Flagyl (Metronidazole) 500 Mg Tablet 500 Mg PO TID 10 Days Carvedilol (Carvedilol) 3.125 Mg Tablet 3.125 Mg PO BIDWMEALS Reported Percocet 5-325 Mg Tablet (Oxycodone/Acetaminophen) 1 Each Tablet 1 Tab PO PRN Q6HRS PRN Medroxyprogesterone Acetate 10 Mg Tablet 10 Mg PO DAILY 10 Days Ziprasidone Hcl 40 Mg Capsule 80 Mg PO DAILY Vitamin D (Cholecalciferol (Vitamin D3)) 50,000 Unit Capsule 50,000 Unit PO WEEKLY Venlafaxine Hcl 50 Mg Tablet 50 Mg PO TID Triamcinolone Acetonide 80 Gm Oint...g. 80 Gm TP Trazodone Hcl 100 Mg Tablet 200 Mg PO HS Trazodone Hcl 50 Mg Tablet 50 Mg PO HS Proair Hfa Inhaler (Albuterol Sulfate) 8.5 Gm Hfa.aer.ad 1 Puff INH PRN Q6HRS PRN Losartan Potassium (Losartan Potassium) 25 Mg Tablet 25 Mg PO DAILY Hydroxyzine Hcl 10 Mg/5 Ml Syrup 10 Mg PO TID Omeprazole 40 Mg Capsule.dr 40 Mg PO BID Trazodone Hcl 100 Mg Tablet 200 Mg PO HS Hydroxyzine Hcl 50 Mg Tablet 200 Mg PO HS PRN Venlafaxine Hcl Er (Venlafaxine Hcl) 150 Mg Tab.er.24 150 Mg PO DAILY Lisinopril 2.5 Mg Tablet 2.5 Mg PO DAILY Geodon (Ziprasidone Hcl) 60 Mg Capsule 240 Mg PO HS Metformin Hcl 500 Mg Tablet 1,000 Mg PO BIDBFRMEAL Simvastatin 20 Mg Tablet 20 Mg PO HS Allergies Allergies: Coded Allergies: No Known Drug Allergies (Unverified , 09/21/15) ROS Review of System Fullness, epigastric pain, nausea but no emesis, otherwise rest of ROS 14 point negative Physical Exam General: Alert, Oriented X3, Cooperative, No acute distress HEENT: Atraumatic, PERRLA, EOMI Lungs: Clear to auscultation, Normal air movement Heart: S1S2, no thrills, no rubs, no gallops, other (sinus tachycardia) Cardiovascular: S1, S2 Breasts: Normal, Rt breast nml w/o mass, Lt breast nml w/o mass, Nipples normal Abdomen: Soft, No tenderness, Other (obese, normoactive bowel sounds) PELVIC: Nml ext genitalia Extremities: No clubbing, No cyanosis, No edema, Normal pulses, No tenderness/ swelling Skin: No rashes, No breakdown, No significant lesion Neuro: Normal gait, Normal speech, Strength at 5/5 X4 ext, Normal tone, Sensation intact, Cranial nerves 3-12 NL, Reflexes 2+ Psych/Mental Status: Mental status NL, Mood NL Vitals Vitals Vital Signs Date Time Temp Pulse Resp B/P (MAP) Pulse Ox O2 Delivery O2 Flow Rate FiO2 01/16/19 18:07 123 170/110 01/16/19 15:49 97.6 22 96 Room Air 97.6 Labs Labs Laboratory Tests Test 01/16/19 16:00 White Blood Count 5.4 x10^3/uL (4.0-11.0) Red Blood Count 4.99 x10^6/uL (3.50-5.40) Hemoglobin 12.7 g/dL (12.0-15.5) Hematocrit 40.8 % (36.0-47.0) Mean Corpuscular Volume 82 fL (79-100) Mean Corpuscular Hemoglobin 26 pg (25-35) Mean Corpuscular Hemoglobin Concent 31 g/dL (31-37) Red Cell Distribution Width 15.2 % (11.5-14.5) Platelet Count 257 x10^3/uL (140-400) Neutrophils (%) (Auto) 50 % (31-73) Lymphocytes (%) (Auto) 35 % (24-48) Monocytes (%) (Auto) 13 % (0-9) Eosinophils (%) (Auto) 1 % (0-3) Basophils (%) (Auto) 1 % (0-3) Neutrophils # (Auto) 2.7 x10^3uL (1.8-7.7) Lymphocytes # (Auto) 1.9 x10^3/uL (1.0-4.8) Monocytes # (Auto) 0.7 x10^3/uL (0.0-1.1) Eosinophils # (Auto) 0.1 x10^3/uL (0.0-0.7) Basophils # (Auto) 0.1 x10^3/uL (0.0-0.2) Urine Collection Type Void Urine Color Cyndie Urine Clarity Clear Urine pH 6.0 Urine Specific Melvin >=1.030 Urine Protein >=300 mg/dL (NEG-TRACE) Urine Glucose (UA) Negative mg/dL (NEG) Urine Ketones (Stick) Trace mg/dL (NEG) Urine Blood Negative (NEG) Urine Nitrite Negative (NEG) Urine Bilirubin Moderate (NEG) Urine Urobilinogen Dipstick 1.0 mg/dL (0.2 mg/dL) Urine Leukocyte Esterase Negative (NEG) Urine RBC 0 /HPF (0-2) Urine WBC 5-10 /HPF (0-4) Urine Squamous Epithelial Cells Few /LPF Urine Bacteria Moderate /HPF (0-FEW) Urine Hyaline Casts Occasional /HPF Urine Mucus Mod /LPF Sodium Level 143 mmol/L (136-145) Potassium Level 3.1 mmol/L (3.5-5.1) Chloride Level 103 mmol/L (98-107) Carbon Dioxide Level 28 mmol/L (21-32) Anion Gap 12 (6-14) Blood Urea Nitrogen 14 mg/dL (7-20) Creatinine 0.9 mg/dL (0.6-1.0) Estimated GFR (Cockcroft-Gault) 80.9 BUN/Creatinine Ratio 16 (6-20) Glucose Level 114 mg/dL (70-99) Calcium Level 9.0 mg/dL (8.5-10.1) Total Bilirubin 1.5 mg/dL (0.2-1.0) Aspartate Amino Transf (AST/SGOT) 26 U/L (15-37) Alanine Aminotransferase (ALT/SGPT) 20 U/L (14-59) Alkaline Phosphatase 90 U/L (46-116) Troponin I Quantitative 0.029 ng/mL (0.000-0.055) RZ-Efk-C-Type Natriuretic Peptide 1308 pg/mL (0-124) Total Protein 7.3 g/dL (6.4-8.2) Albumin 3.3 g/dL (3.4-5.0) Albumin/Globulin Ratio 0.8 (1.0-1.7) Lipase 178 U/L (73-393) Laboratory Tests Test 01/16/19 16:00 White Blood Count 5.4 x10^3/uL (4.0-11.0) Red Blood Count 4.99 x10^6/uL (3.50-5.40) Hemoglobin 12.7 g/dL (12.0-15.5) Hematocrit 40.8 % (36.0-47.0) Mean Corpuscular Volume 82 fL (79-100) Mean Corpuscular Hemoglobin 26 pg (25-35) Mean Corpuscular Hemoglobin Concent 31 g/dL (31-37) Red Cell Distribution Width 15.2 % (11.5-14.5) Platelet Count 257 x10^3/uL (140-400) Neutrophils (%) (Auto) 50 % (31-73) Lymphocytes (%) (Auto) 35 % (24-48) Monocytes (%) (Auto) 13 % (0-9) Eosinophils (%) (Auto) 1 % (0-3) Basophils (%) (Auto) 1 % (0-3) Neutrophils # (Auto) 2.7 x10^3uL (1.8-7.7) Lymphocytes # (Auto) 1.9 x10^3/uL (1.0-4.8) Monocytes # (Auto) 0.7 x10^3/uL (0.0-1.1) Eosinophils # (Auto) 0.1 x10^3/uL (0.0-0.7) Basophils # (Auto) 0.1 x10^3/uL (0.0-0.2) Urine Collection Type Void Urine Color Cyndie Urine Clarity Clear Urine pH 6.0 Urine Specific Melvin >=1.030 Urine Protein >=300 mg/dL (NEG-TRACE) Urine Glucose (UA) Negative mg/dL (NEG) Urine Ketones (Stick) Trace mg/dL (NEG) Urine Blood Negative (NEG) Urine Nitrite Negative (NEG) Urine Bilirubin Moderate (NEG) Urine Urobilinogen Dipstick 1.0 mg/dL (0.2 mg/dL) Urine Leukocyte Esterase Negative (NEG) Urine RBC 0 /HPF (0-2) Urine WBC 5-10 /HPF (0-4) Urine Squamous Epithelial Cells Few /LPF Urine Bacteria Moderate /HPF (0-FEW) Urine Hyaline Casts Occasional /HPF Urine Mucus Mod /LPF Sodium Level 143 mmol/L (136-145) Potassium Level 3.1 mmol/L (3.5-5.1) Chloride Level 103 mmol/L (98-107) Carbon Dioxide Level 28 mmol/L (21-32) Anion Gap 12 (6-14) Blood Urea Nitrogen 14 mg/dL (7-20) Creatinine 0.9 mg/dL (0.6-1.0) Estimated GFR (Cockcroft-Gault) 80.9 BUN/Creatinine Ratio 16 (6-20) Glucose Level 114 mg/dL (70-99) Calcium Level 9.0 mg/dL (8.5-10.1) Total Bilirubin 1.5 mg/dL (0.2-1.0) Aspartate Amino Transf (AST/SGOT) 26 U/L (15-37) Alanine Aminotransferase (ALT/SGPT) 20 U/L (14-59) Alkaline Phosphatase 90 U/L (46-116) Troponin I Quantitative 0.029 ng/mL (0.000-0.055) YO-Jnb-A-Type Natriuretic Peptide 1308 pg/mL (0-124) Total Protein 7.3 g/dL (6.4-8.2) Albumin 3.3 g/dL (3.4-5.0) Albumin/Globulin Ratio 0.8 (1.0-1.7) Lipase 178 U/L (73-393) VTE Prophylaxis Ordered VTE Prophylaxis Devices: Yes VTE Pharmacological Prophylaxi: Yes Assessment/Plan Assessment/Plan EPIGastric fullness, nausea but no emesis, intermittent-worse in the last 3 weeks Morbid obesity with a BMI 55.6 Recent weight loss 100 pounds, intentional by decreasing oral intake Mild hypokalemia Accel hypertension POA Sinus tachycardia Elevated total bili 1.5 Prominent pulm knob on CT Asthma, non smoker, - stable, intermittent Dm2 x 8 yrs, unknown hgba1c - possible gastroparesis? Fibroid uterus Fatty liver Sarcoidosis lungs - know to Dr Trevino, no more CT scans per pulmo INguinal LNs- chronic, known to her PLAN: Hook to Telemetry Start Cardizem I reconciled home meds, supposed to be on beta padma? but she thinks that list is not accurate We are checking with her pharmacy [facility] and state Pulmonary was consulted by ER because of prominent pulmonary arterial knob Her asthma seems to be intermittent and stable Epigastric fullness, elevated total bili-she would need to lose more weight and she would feel better Replace potassium 401 (3.1) I did consult GI re abd issues Cards was consulted by ER for the sinus tachycardia-as mentioned above I did resume Cardizem Check TSH Further recs pending above Check hemoglobin A1c, she is unsure of this, DM for 8 yrs now Her symptoms might also be from gastroparesis Check a GET MDM complex, numorous concerns Seen at ER, signif time ISAURO SEO MD Jan 16, 2019 19:25
[2019-01-16] MEDS ORDERED: ENALAPRILAT 1.25 MG/ML VIAL. IVP PRN (20:00)
[2019-01-16 20:05] VITALS: BP 186/104
--- NOTE | 2019-01-16 20:47 | EKG ---
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
[2019-01-16] MEDS: VENLAFAXINE 50 MG TABLET. PO SCH (21:00)
[2019-01-16] MEDS ORDERED: ZIPRASIDONE HCL PO SCH (21:00)
[2019-01-16] MEDS: hydrOXYzine 10 MG TABLET PO SCH (21:00)
[2019-01-16] MEDS ORDERED: traZODone 50 MG TABLET. PO SCH (21:00)
[2019-01-16] MEDS: CARVEDILOL 3.125 MG TABLET. PO SCH (21:54)
[2019-01-16] MEDS: MAG HYDROX/ALUMINUM HYD/SIMETH 30 ML ORAL.SUSP PO PRN (22:02)
[2019-01-16 22:41] VITALS: BP 137/107
[2019-01-17 03:32] VITALS: BP 176/92
[2019-01-17 07:00] VITALS: BP 142/101
[2019-01-17] MEDS: MAG HYDROX/ALUMINUM HYD/SIMETH 30 ML ORAL.SUSP PO PRN (07:22)
[2019-01-17] MEDS ORDERED: PANTOPRAZOLE 40 MG TABLET.DR. PO SCH (07:30)
[2019-01-17] MEDS: VENLAFAXINE 50 MG TABLET. PO SCH ×2 (07:47→14:00)
[2019-01-17] MEDS: hydrOXYzine 10 MG TABLET PO SCH ×2 (07:47→14:00)
[2019-01-17] MEDS: CARVEDILOL 3.125 MG TABLET. PO SCH (08:00)
[2019-01-17] MEDS ORDERED: LISINOPRIL 5 MG TABLET. PO SCH (09:00)
[2019-01-17] MEDS ORDERED: LOSARTAN POTASSIUM 25 MG TABLET. PO SCH (09:00)
[2019-01-17] MEDS ORDERED: DILT180C29 PO (10:32)
[2019-01-17] MEDS ORDERED: Pantoprazole PO (10:32)
[2019-01-17] MEDS ORDERED: MAG30ORA2 PO (10:32)
[2019-01-17] MEDS ORDERED: HYDR-2145 PO (10:35)
--- NOTE | 2019-01-17 10:38 | PDOC3 ---
Discharge Summary Visit Information Date of Admission: Jan 16, 2019 Date of Discharge: Jan 17, 2019 Admitting Diagnosis Comment: EPIGastric fullness, nausea but no emesis, intermittent-worse in the last 3 weeks Morbid obesity with a BMI 55.6 Recent weight loss 100 pounds, intentional by decreasing oral intake Mild hypokalemia Accel hypertension POA Sinus tachycardia Elevated total bili 1.5 Prominent pulm knob on CT Asthma, non smoker, - stable, intermittent Dm2 x 8 yrs, unknown hgba1c - possible gastroparesis? 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7 g/dL (12.0-15.5) Hematocrit 40.8 % (36.0-47.0) Mean Corpuscular Volume 82 fL (79-100) Mean Corpuscular Hemoglobin 26 pg (25-35) Mean Corpuscular Hemoglobin Concent 31 g/dL (31-37) Red Cell Distribution Width 15.2 % (11.5-14.5) Platelet Count 257 x10^3/uL (140-400) Neutrophils (%) (Auto) 50 % (31-73) Lymphocytes (%) (Auto) 35 % (24-48) Monocytes (%) (Auto) 13 % (0-9) Eosinophils (%) (Auto) 1 % (0-3) Basophils (%) (Auto) 1 % (0-3) Neutrophils # (Auto) 2.7 x10^3uL (1.8-7.7) Lymphocytes # (Auto) 1.9 x10^3/uL (1.0-4.8) Monocytes # (Auto) 0.7 x10^3/uL (0.0-1.1) Eosinophils # (Auto) 0.1 x10^3/uL (0.0-0.7) Basophils # (Auto) 0.1 x10^3/uL (0.0-0.2) Urine Collection Type Void Urine Color Cyndie Urine Clarity Clear Urine pH 6.0 Urine Specific [place] >=1.030 Urine Protein >=300 mg/dL (NEG-TRACE) Urine Glucose (UA) Negative mg/dL (NEG) Urine Ketones (Stick) Trace mg/dL (NEG) Urine Blood Negative (NEG) Urine Nitrite Negative (NEG) Urine Bilirubin Moderate (NEG) Urine Urobilinogen Dipstick 1.0 mg/dL (0.2 mg/dL) Urine Leukocyte Esterase Negative (NEG) Urine RBC 0 /HPF (0-2) Urine WBC 5-10 /HPF (0-4) Urine Squamous Epithelial Cells Few /LPF Urine Bacteria Moderate /HPF (0-FEW) Urine Hyaline Casts Occasional /HPF Urine Mucus Mod /LPF Sodium Level 143 mmol/L (136-145) Potassium Level 3.1 mmol/L (3.5-5.1) Chloride Level 103 mmol/L (98-107) Carbon Dioxide Level 28 mmol/L (21-32) Anion Gap 12 (6-14) Blood Urea Nitrogen 14 mg/dL (7-20) Creatinine 0.9 mg/dL (0.6-1.0) Estimated GFR (Cockcroft-Gault) 80.9 BUN/Creatinine Ratio 16 (6-20) Glucose Level 114 mg/dL (70-99) Calcium Level 9.0 mg/dL (8.5-10.1) Total Bilirubin 1.5 mg/dL (0.2-1.0) Aspartate Amino Transf (AST/SGOT) 26 U/L (15-37) Alanine Aminotransferase (ALT/SGPT) 20 U/L (14-59) Alkaline Phosphatase 90 U/L (46-116) Troponin I Quantitative 0.029 ng/mL (0.000-0.055) 0.031 ng/mL (0.000-0.055) 0.031 ng/mL (0.000-0.055) BW-Suq-I-Type Natriuretic Peptide 1308 pg/mL (0-124) Total Protein 7.3 g/dL (6.4-8.2) Albumin 3.3 g/dL (3.4-5.0) Albumin/Globulin Ratio 0.8 (1.0-1.7) Lipase 178 U/L (73-393) Thyroid Stimulating Hormone (TSH) 2.466 uIU/mL (0.358-3.74) Glucose (Fingerstick) 150 mg/dL (70-99) Test 01/17/19 07:56 Glucose (Fingerstick) 94 mg/dL (70-99) Laboratory Tests Test 01/16/19 16:00 01/16/19 20:45 01/16/19 20:57 01/16/19 23:45 White Blood Count 5.4 x10^3/uL (4.0-11.0) Red Blood Count 4.99 x10^6/uL (3.50-5.40) Hemoglobin 12.7 g/dL (12.0-15.5) Hematocrit 40.8 % (36.0-47.0) Mean Corpuscular Volume 82 fL (79-100) Mean Corpuscular Hemoglobin 26 pg (25-35) Mean Corpuscular Hemoglobin Concent 31 g/dL (31-37) Red Cell Distribution Width 15.2 % (11.5-14.5) Platelet Count 257 x10^3/uL (140-400) Neutrophils (%) (Auto) 50 % (31-73) Lymphocytes (%) (Auto) 35 % (24-48) Monocytes (%) (Auto) 13 % (0-9) Eosinophils (%) (Auto) 1 % (0-3) Basophils (%) (Auto) 1 % (0-3) Neutrophils # (Auto) 2.7 x10^3uL (1.8-7.7) Lymphocytes # (Auto) 1.9 x10^3/uL (1.0-4.8) Monocytes # (Auto) 0.7 x10^3/uL (0.0-1.1) Eosinophils # (Auto) 0.1 x10^3/uL (0.0-0.7) Basophils # (Auto) 0.1 x10^3/uL (0.0-0.2) Urine Collection Type Void Urine Color Cyndie Urine Clarity Clear Urine pH 6.0 Urine Specific [place] >=1.030 Urine Protein >=300 mg/dL (NEG-TRACE) Urine Glucose (UA) Negative mg/dL (NEG) Urine Ketones (Stick) Trace mg/dL (NEG) Urine Blood Negative (NEG) Urine Nitrite Negative (NEG) Urine Bilirubin Moderate (NEG) Urine Urobilinogen Dipstick 1.0 mg/dL (0.2 mg/dL) Urine Leukocyte Esterase Negative (NEG) Urine RBC 0 /HPF (0-2) Urine WBC 5-10 /HPF (0-4) Urine Squamous Epithelial Cells Few /LPF Urine Bacteria Moderate /HPF (0-FEW) Urine Hyaline Casts Occasional /HPF Urine Mucus Mod /LPF Sodium Level 143 mmol/L (136-145) Potassium Level 3.1 mmol/L (3.5-5.1) Chloride Level 103 mmol/L (98-107) Carbon Dioxide Level 28 mmol/L (21-32) Anion Gap 12 (6-14) Blood Urea Nitrogen 14 mg/dL (7-20) Creatinine 0.9 mg/dL (0.6-1.0) Estimated GFR (Cockcroft-Gault) 80.9 BUN/Creatinine Ratio 16 (6-20) Glucose Level 114 mg/dL (70-99) Calcium Level 9.0 mg/dL (8.5-10.1) Total Bilirubin 1.5 mg/dL (0.2-1.0) Aspartate Amino Transf (AST/SGOT) 26 U/L (15-37) Alanine Aminotransferase (ALT/SGPT) 20 U/L (14-59) Alkaline Phosphatase 90 U/L (46-116) Troponin I Quantitative 0.029 ng/mL (0.000-0.055) 0.031 ng/mL (0.000-0.055) 0.031 ng/mL (0.000-0.055) GG-Iby-H-Type Natriuretic Peptide 1308 pg/mL (0-124) Total Protein 7.3 g/dL (6.4-8.2) Albumin 3.3 g/dL (3.4-5.0) Albumin/Globulin Ratio 0.8 (1.0-1.7) Lipase 178 U/L (73-393) Thyroid Stimulating Hormone (TSH) 2.466 uIU/mL (0.358-3.74) Glucose (Fingerstick) 150 mg/dL (70-99) Test 01/17/19 07:56 Glucose (Fingerstick) 94 mg/dL (70-99) Brief Hospital Course Ms. Aguilera is a 48 old [sex] who presented with [ ] 48-year-old morbidly obese -Trist[place] female with a BMI of 55.6, actually recently lost 100 pounds by decreasing oral intake. She admits for the past month she has not been watching her diet, having a high salt intake. She comes in because of abdominal pain, nausea but no emesis, feeling of fullness 3 weeks intermittent. She is tachycardic. Supposed to be on Cardizem unknown dose but she claims she stopped it because of fear that it was the medication causing high protein in her blood and she could not be a plasma donor and she needed to be a plasam donor for Money Her CAT scan abdomen and pelvis had a lot of unimpressive findings and I provided her a copy and we did go one by one as to the numerous results including uterine Fibroids, no evidence of colitis, fatty liver etc. There is also no evidence of PE to explain the tachy But she is supposed to be on Cardizem as mentioned above Lopressor has been given with minimal relief Blood pressure on the high side Total bili 1.5 with some abdominal pain. She complains of mostly epigastric fullness Prominent pulmonary arterial knob with no history of COPD or at least only asthma or bronchitis- she mentions her roommate chain smoked and so she left Otherwise no known cardiac problems. Cards was consulted for the tachycardia COURSE: Admitted, spent overnight. She is tachycardic most likely from the hypoxia, obesity hypoventilation syndrome. She uses O2 at home. We will do a 6 minute walk might need O2 during the daytime 2. Discussed with pulmonary Sarcoidosis is stable. She needs to lose more weight that will help problems. She is hypoxic because of high breast hypoventilation syndrome and hypoxic interns triggers the tachycardia. We decided that she will be off beta padma and continue Cardizem that she was supposed to be on. Cards also consulted. She requests some scrips including HCTZ, Cardizem, etc. All Rx in chart Patient seen and examined, discussed with cardiology and primary She also requests some protonic instead of omeprazole and some Maalox which is [id number] Procedures performed none Discharge Information Condition at Discharge: Improved, Stable Disposition/Orders: D/C to Home Scheduled Carvedilol (Carvedilol ) 3.125 Mg Tablet, 3.125 MG PO BIDWMEALS, #60 Ref 0 Prescribed by: ANAIS DOHERTY MD on 10/30/15 1309 Last Action: Continued on 01/16/191913 by ISAURO SEO Cholecalciferol (Vitamin D3) (Vitamin D) 50,000 Unit Capsule, 50,000 UNIT PO WEEKLY, (Reported) Entered as Reported by: MARTINEZ MATTHEWS on 02/12/16851 Last Action: Converted on 01/16/191913 by ISAURO SEO Diltiazem Hcl (Diltiazem 24HR Cd) 180 Mg Cap.er.24h, 180 MG PO DAILY for tacyy, htn MDD 1, #30 Prescribed by: ISAURO SEO on 01/17/19 1032 Hydrochlorothiazide (Hydrochlorothiazide Tablet ) 25 Mg Tablet, 25 MG PO DAILY for DIURETIC for 30 Days, #30 Ref 0 Prescribed by: ISAURO SEO on 01/17/19 1035 Hydroxyzine Hcl (Hydroxyzine Hcl) 10 Mg/5 Ml Syrup, 10 MG PO TID, (Reported) Entered as Reported by: MARTINEZ MATTHEWS on 02/12/16851 Last Action: Converted on 01/16/191913 by ISAURO SEO Lisinopril (Lisinopril) 2.5 Mg Tablet, 2.5 MG PO DAILY for FOR HYPERTENSION, # 30 Ref 0 (Reported) Entered as Reported by: SIXTO BEASLEY [facility] on 10/28/15 1344 Last Action: Converted on 01/16/191913 by ISAURO SEO Losartan Potassium (Losartan Potassium ) 25 Mg Tablet, 25 MG PO DAILY, ( Reported) Entered as Reported by: MARTINEZ MATTHEWS on 02/12/16851 Last Action: Continued on 01/16/191913 by ISAURO SEO Medroxyprogesterone Acetate (Medroxyprogesterone Acetate) 10 Mg Tablet, 10 MG PO DAILY for 10 Days, (Reported) Entered as Reported by: MARTINEZ MATTHEWS on 02/12/16 0853 Last Action: Converted on 01/16/191913 by ISAURO SEO Metformin Hcl (Metformin Hcl) 500 Mg Tablet, 1,000 MG PO BIDBFRMEAL, (Reported) Entered as Reported by: BERT RUBIN on 02/13/14 1623 Last Action: Converted on 01/16/191913 by ISAURO SEO Metronidazole (Flagyl) 500 Mg Tablet, 500 MG PO TID for 10 Days, #30 Prescribed by: CHELITA MONTES MD on 03/23/17 0911 Last Action: HELD on 01/16/191913 by ISAURO SEO Omeprazole (Omeprazole) 40 Mg Capsule.dr, 40 MG PO BID, (Reported) Entered as Reported by: SIXTO BEASLEY RPH on 10/28/15 1344 Last Action: HELD on 01/16/191913 by ISAURO SEO Simvastatin (Simvastatin) 20 Mg Tablet, 20 MG PO HS, (Reported) Entered as Reported by: BERT RUBIN on 02/13/14 1623 Last Action: HELD on 01/16/191913 by ISAURO SEO Trazodone Hcl (Trazodone Hcl) 100 Mg Tablet, 200 MG PO HS, (Reported) Entered as Reported by: SIXTO BEASLEY RPH on 10/28/15 1344 Last Action: HELD on 01/16/191913 by ISAURO SEO Trazodone Hcl (Trazodone Hcl) 50 Mg Tablet, 50 MG PO HS, (Reported) Entered as Reported by: MARTINEZ MATTHEWS on 02/12/16851 Last Action: Continued on 01/16/191913 by ISAURO SEO Trazodone Hcl (Trazodone Hcl) 100 Mg Tablet, 200 MG PO HS, (Reported) Entered as Reported by: MARTINEZ MATTHEWS on 02/12/16851 Last Action: HELD on 01/16/191913 by ISAURO SEO Venlafaxine Hcl (Venlafaxine Hcl Er) 150 Mg Tab.er.24, 150 MG PO DAILY, ( Reported) Entered as Reported by: SIXTO BEASLEY RPH on 10/28/15 1344 Last Action: Converted on 01/16/191913 by ISAURO SEO Venlafaxine Hcl (Venlafaxine Hcl) 50 Mg Tablet, 50 MG PO TID, (Reported) Entered as Reported by: MARTINEZ MATTHEWS on 02/12/16851 Last Action: HELD on 01/16/191913 by ISAURO SEO Ziprasidone Hcl (Geodon) 60 Mg Capsule, 240 MG PO HS, (Reported) Entered as Reported by: BERT RUBIN on 02/13/14 1623 Last Action: Converted on 01/16/191913 by ISAURO SEO Ziprasidone Hcl (Ziprasidone Hcl) 40 Mg Capsule, 80 MG PO DAILY, (Reported) Entered as Reported by: MARTINEZ MATTHEWS on 02/12/16851 Last Action: HELD on 01/16/191913 by ISAURO SEO [Pantoprazole] 40 MG TABLET.DR, 40 MG PO DAILYAC for gerd MDD 1, #30 Prescribed by: ISAURO SEO on 01/17/19 1032 Scheduled PRN Albuterol Sulfate (Proair Hfa Inhaler) 8.5 Gm Hfa.aer.ad, 1 PUFF INH PRN Q6HRS PRN for SHORTNESS OF BREATH, Ref 0 (Reported) Entered as Reported by: MARTINEZ MATTHEWS on 02/12/16851 Last Action: Continued on 01/16/191913 by ISAURO SEO Hydrocodone/Apap 5-325 ([place] 5-325 Tablet) 1 Each Tablet, 1-2 EACH PO PRN Q6HRS PRN for PAIN, #8 as needed for pain Prescribed by: CHELITA MONTES MD on 03/23/17 0911 Last Action: Continued on 01/16/191913 by ISAURO SEO Hydroxyzine Hcl (Hydroxyzine Hcl) 50 Mg Tablet, 200 MG PO HS PRN for ANXIETY, ( Reported) Entered as Reported by: SIXTO BEASLEY RPH on 10/28/15 1344 Last Action: HELD on 01/16/191913 by ISAURO SEO Mag Hydrox/Al Hydrox/Simeth (Mag-Al Plus Xs Suspension) 30 Ml Oral.susp, 30 ML PO PRN Q2HR PRN for HEARTBURN / GAS MDD 1, #1 Prescribed by: ISAURO SEO on 01/17/19 1032 Oxycodone/Apap 5-325 (Percocet 5-325 Mg Tablet ) 1 Each Tablet, 1 TAB PO PRN Q6HRS PRN for PAIN, Ref 0 (Reported) Entered as Reported by: MARTINEZ MATTHEWS on 02/12/16852 Last Action: Continued on 01/16/191913 by ISAURO SEO Miscellaneous Medications Triamcinolone Acetonide (Triamcinolone Acetonide) 80 Gm Oint...g., 80 GM TP, ( Reported) Entered as Reported by: MARTINEZ MATTHEWS on 02/12/16851 Last Action: HELD on 01/16/191913 by ISAURO FITZGERALD MD Jan 17, 2019 10:37
--- NOTE | 2019-01-17 10:56 | CONS ---
DATE OF CONSULTATION: PULMONARY CONSULTATION ATTENDING PHYSICIAN: Dr. Santoyo. REASON FOR CONSULTATION: Dyspnea, abnormal CT chest and pulmonary hypertension. HISTORY OF PRESENT ILLNESS: The patient is a 48-year-old female who is morbidly obese with a BMI of 57.5. She lost about 100 pounds previously, but then gained another 25 pounds in the last few weeks. She came to the hospital with increasing dyspnea. She had some palpitations as well. The patient states she does have a mild cough and postnasal drainage. She has mild asthma. The patient has a history of sarcoidosis diagnosed from her groin biopsy. She had some hilar and mediastinal adenopathy as well. Biopsy had shown non-caseating granulomas from the groin. Dr. Orozco, my partner, has seen her in the past and there was a radiographic resolution of sarcoidosis from her chest. As a result, no further followups were recommended. The patient has history of sleep apnea, but her insurance Medicaid does not cover CPAP. She underwent CT angiogram on admission, which was reviewed by me. The patient had no evidence of any pulmonary embolism. There were mildly enlarged mediastinal and hilar lymph nodes which are not pathological. There was no evidence of any interstitial lung disease. There was evidence of some pulmonary hypertension on CT. PAST MEDICAL HISTORY: Significant for history of morbid obesity, history of sarcoidosis diagnosed from the groin biopsy and no pathological sarcoidosis in the lungs. History of TEO, Medicaid does not cover CPAP. Osteoarthritis. PAST SURGICAL HISTORY: . FAMILY HISTORY: Diabetes and hypertension. SOCIAL HISTORY: Nonsmoker. ALLERGIES: None. CURRENT MEDICATIONS: Reviewed as listed in the MRAD. REVIEW OF SYSTEMS: Twelve-point system obtained. Pertinent positives discussed in my history of present illness, otherwise noncontributory. All systems that were negative were reviewed as well. PHYSICAL EXAMINATION: VITAL SIGNS: Reviewed. Blood pressure on the high side, 142/101; afebrile and pulse ox 94% on room air. NECK: Supple. LUNGS: Clear. CARDIOVASCULAR EXAMINATION: Regular rate and rhythm. ABDOMEN: Soft, distended secondary to obesity. EXTREMITIES: With trace pitting edema. LABORATORY DATA: Labs are reviewed. White cell count 5.4, hemoglobin 12.7 and platelets are 257,000. Her TSH is 2.4. BUN and creatinine 14 and 0.9. IMPRESSION: 1. Dyspnea with palpitations and tachycardia, related to physical deconditioning and 25-pound weight gain recently. She probably has hypoxia with exertion, resulting in tachycardia. She needs to lose weight. There is no convincing evidence of pulmonary embolism on CT angiogram. 2. The patient with history of sarcoidosis from groin biopsy and there was a radiographic resolution of sarcoidosis. There is no pathological adenopathy or interstitial lung disease in her lungs. There are no groin lymph nodes on the CT abdomen and pelvis reported. 3. Morbid obesity and obstructive sleep apnea, Medicaid does not cover CPAP. RECOMMENDATIONS: 1. From a Pulmonary standpoint, she would need a 6-minute walk test to assess the need for home oxygen. 2. Weight loss is strongly emphasized. 3. Continue diuretics. 4. No other Pulmonary recommendations. Her pulmonary hypertension is secondary to her TEO. No evidence of pulmonary embolism. 5. Discussed with Dr. Santoyo. JOE CLAY MD DR: JIMMIE/con JOB#: [id number] / [id number]
[2019-01-17 11:23] VITALS: BP 156/93
[2019-01-17] MEDS ORDERED: POTASSIUM CHLORIDE 20 MEQ TABLET.ER. PO ONE (11:30)
--- NOTE | 2019-01-17 12:50 | PDOC2 ---
SIXTO DO HOUSE FELLOW 01/17/19 1250: CARDIAC CONSULT DATE OF CONSULT Date of Consult DATE: 01/17/19 TIME: 12:47 REASON FOR CONSULT Reason for Consult: Tachycardia REFERRING PHYSICIAN Referring Physician: Dr. Flower SOURCE Source: Chart review, Patient HISTORY OF PRESENT ILLNESS HISTORY OF PRESENT ILLNESS This is a 48 yo female, with a history of atrial flutter, who presented secondary to chest pain, palpitations, and SAL. Symptoms have been presented intermittently for the last 3 weeks. Had had come occasional associated dizziness. No diaphoresis or nausea/vomiting. Move about a moth ago due to a domestic living situation. Moved in with friend who cooks real well. Patient reports 25 lbs weight gain in the last month with poor eating habits. Was previously on Cardizem, but stopped this a couple of years ago for unknown reason. Not to be tachycardic in ED. Was given Metoprolol IV x1. Review of tele reveals atrial flutter. PAST MEDICAL HISTORY Past Medical History Cardiovascular: Hyperlipidemia, hypertension, atrial fluter Pulmonary: TEO CENTRAL NERVOUS SYSTEM: Other (No pertinent history) GI: No pertinent hx Heme/Onc: No pertinent hx Hepatobiliary: No pertinent hx Psych: Depression Musculoskeletal: Osteoarthritis Rheumatologic: No pertinent hx Infectious disease: No pertinent hx ENT: No pertinent hx Renal/: Urinary Incontinence, Other (fibroids) Endocrine: Diabetes (2) Dermatology: No pertinent hx PAST SURGICAL HISTORY Past Surgical History: Tubal Ligation FAMILY HISTORY Family History: Heart Disease SOCIAL HISTORY Smoke: No ALCOHOL: none Drugs: None Lives: Friends CURRENT MEDICATIONS CURRENT MEDICATIONS Current Medications Medications (Trade) Dose Ordered Sig/Jagjit Route PRN Reason Start Time Stop Time Status Last Admin Dose Admin Metoclopramide HCl (Reglan Vial) 10 mg 1X ONCE IV 01/16/19 16:00 01/16/19 16:01 DC 01/16/19 16:16 Famotidine (Pepcid Vial) 20 mg 1X ONCE IVP 01/16/19 16:00 01/16/19 16:01 DC 01/16/19 16:15 Iohexol (Omnipaque 350 Mg/ml) 100 ml 1X ONCE IV 01/16/19 16:45 01/16/19 16:46 DC 01/16/19 17:20 Metoprolol Tartrate (Lopressor Vial) 5 mg 1X ONCE IVP 01/16/19 18:00 01/16/19 18:01 DC 01/16/19 18:07 Carvedilol (Coreg) 3.125 mg BIDWMEALS PO 01/16/19 20:00 01/16/19 21:54 Pantoprazole Sodium (Protonix) 40 mg DAILYAC PO 01/17/19 07:30 01/17/19 07:57 Diltiazem HCl (Cardizem 24hr Cd) 180 mg DAILY PO 01/17/19 09:00 01/17/19 07:57 Al Hydroxide/Mg Hydroxide (Mylanta Plus Xs) 30 ml PRN Q2HR PRN PO HEARTBURN / GAS 01/16/19 19:15 01/17/19 07:22 Simethicone (Gas-X) 80 mg PRN AFTMEALHC PRN PO GAS / BLOATING 01/16/19 19:15 01/16/19 21:53 Enalaprilat (Vasotec Inj) 1.25 mg PRN Q6HRS PRN IVP HYPERTENSION, SEE COMMENTS 01/16/19 20:00 01/17/19 03:49 ALLERGIES ALLERGIES: Coded Allergies: No Known Drug Allergies (Unverified , 09/21/15) ROS Review of System 14 point ROS conducted with pertinent positives noted above in HPI. PHYSICAL EXAM General: Alert, Oriented X3, Cooperative HEENT: Atraumatic, Mucous membr. moist/pink Lungs: Clear to auscultation, Other (diminished bases) Heart: Normal S1, Other (tele AFlutter rate near 110) Abdomen: Normal bowel sounds, Soft, No tenderness Extremities: No edema, Normal pulses Skin: No significant lesion Neuro: Normal speech, Sensation intact Psych/Mental Status: Mental status NL, Mood NL MUSCULOSKELETAL: Osteoarthritic changes both hands VITALS VITALS Vital Signs Date Time Temp Pulse Resp B/P (MAP) Pulse Ox O2 Delivery O2 Flow Rate FiO2 01/17/19 11:23 97.7 112 20 156/93 (114) 94 Room Air 97.7 01/17/19 03:32 2.0 LABS Lab: Laboratory Tests Test 01/16/19 16:00 01/16/19 20:45 01/16/19 20:57 01/16/19 23:45 White Blood Count 5.4 x10^3/uL (4.0-11.0) Red Blood Count 4.99 x10^6/uL (3.50-5.40) Hemoglobin 12.7 g/dL (12.0-15.5) Hematocrit 40.8 % (36.0-47.0) Mean Corpuscular Volume 82 fL (79-100) Mean Corpuscular Hemoglobin 26 pg (25-35) Mean Corpuscular Hemoglobin Concent 31 g/dL (31-37) Red Cell Distribution Width 15.2 % (11.5-14.5) Platelet Count 257 x10^3/uL (140-400) Neutrophils (%) (Auto) 50 % (31-73) Lymphocytes (%) (Auto) 35 % (24-48) Monocytes (%) (Auto) 13 % (0-9) Eosinophils (%) (Auto) 1 % (0-3) Basophils (%) (Auto) 1 % (0-3) Neutrophils # (Auto) 2.7 x10^3uL (1.8-7.7) Lymphocytes # (Auto) 1.9 x10^3/uL (1.0-4.8) Monocytes # (Auto) 0.7 x10^3/uL (0.0-1.1) Eosinophils # (Auto) 0.1 x10^3/uL (0.0-0.7) Basophils # (Auto) 0.1 x10^3/uL (0.0-0.2) Urine Collection Type Void Urine Color Cyndie Urine Clarity Clear Urine pH 6.0 Urine Specific [place] >=1.030 Urine Protein >=300 mg/dL (NEG-TRACE) Urine Glucose (UA) Negative mg/dL (NEG) Urine Ketones (Stick) Trace mg/dL (NEG) Urine Blood Negative (NEG) Urine Nitrite Negative (NEG) Urine Bilirubin Moderate (NEG) Urine Urobilinogen Dipstick 1.0 mg/dL (0.2 mg/dL) Urine Leukocyte Esterase Negative (NEG) Urine RBC 0 /HPF (0-2) Urine WBC 5-10 /HPF (0-4) Urine Squamous Epithelial Cells Few /LPF Urine Bacteria Moderate /HPF (0-FEW) Urine Hyaline Casts Occasional /HPF Urine Mucus Mod /LPF Sodium Level 143 mmol/L (136-145) Potassium Level 3.1 mmol/L (3.5-5.1) Chloride Level 103 mmol/L (98-107) Carbon Dioxide Level 28 mmol/L (21-32) Anion Gap 12 (6-14) Blood Urea Nitrogen 14 mg/dL (7-20) Creatinine 0.9 mg/dL (0.6-1.0) Estimated GFR (Cockcroft-Gault) 80.9 BUN/Creatinine Ratio 16 (6-20) Glucose Level 114 mg/dL (70-99) Calcium Level 9.0 mg/dL (8.5-10.1) Total Bilirubin 1.5 mg/dL (0.2-1.0) Aspartate Amino Transf (AST/SGOT) 26 U/L (15-37) Alanine Aminotransferase (ALT/SGPT) 20 U/L (14-59) Alkaline Phosphatase 90 U/L (46-116) Troponin I Quantitative 0.029 ng/mL (0.000-0.055) 0.031 ng/mL (0.000-0.055) 0.031 ng/mL (0.000-0.055) SG-Abq-A-Type Natriuretic Peptide 1308 pg/mL (0-124) Total Protein 7.3 g/dL (6.4-8.2) Albumin 3.3 g/dL (3.4-5.0) Albumin/Globulin Ratio 0.8 (1.0-1.7) Lipase 178 U/L (73-393) Thyroid Stimulating Hormone (TSH) 2.466 uIU/mL (0.358-3.74) Glucose (Fingerstick) 150 mg/dL (70-99) Test 01/17/19 07:56 01/17/19 11:45 Glucose (Fingerstick) 94 mg/dL (70-99) 124 mg/dL (70-99) ECHOCARDIOGRAM ECHOCARDIOGRAM <Conclusion> The left ventricle is normal size. The left ventricular systolic function is normal and the ejection fraction is within normal range. The Ejection Fraction is 55-60%. There is borderline concentric left ventricular hypertrophy. There is no significant aortic valvular stenosis. Doppler and Color Flow revealed no significant aortic regurgitation. Doppler and Color Flow revealed no mitral valve regurgitation noted. Doppler and Color Flow revealed mild tricuspid regurgitation. The PA pressure was estimated at 50 mmHg. There is no evidence of significant pericardial effusion. DATE: 09/11/15 1007 ASSESSMENT/PLAN ASSESSMENT/PLAN 1. PAflutter; recurrent. rate elevated. Previously on Cardizem, but stopped taking a couple of years ago. 2. Hypertension 3. Hyperlipidemia 4. TEO 5. Morbid obesity Recommendations Resume Cardizem for rate control Start Eliquis for stroke prophylaxis Will arrange for outpatient echocardiogram Encouraged weight loss Follow pulm recs. Consider outpatient cardioversion in 3-4 weeks HATTIE INGRAM MD 01/17/19 1614: CARDIAC CONSULT ASSESSMENT/PLAN ASSESSMENT/PLAN Patient seen and examined. Agree with [facility] OUTCOMES LIAISON's assessment and plan. Atrial flutter recurrent, rate controlled at this time Continue Cardizem Start eliquis for long-term anticoagulation and plan for outpatient cardioversion in 3-4 weeks Check 2-D echo to assess LV systolic function - could be done as an outpatient if patient is discharged today Thank you for your consultation SIXTO DO APRN Jan 17, 2019 12:50 HATTIE INGRAM MD Jan 17, 2019 16:14
--- NOTE | 2019-01-17 13:32 | RAD ---
EXAM: Nuclear gastric emptying scan. HISTORY: Nausea COMPARISON: None. TECHNIQUE: Serial static images were obtained over the stomach following oral administration of 2.1 mCi of 99m-Tc sulfur colloid. FINDINGS: The stomach empties into the small bowel without evidence of reflux in the area of the esophagus. The estimated time for half emptying of gastric contents, i.e. 'gastric emptying time' is 64 minutes (normal is 66 +/- 22 minutes). There is 48 percent retained tracer activity within the stomach at one hour, 32 percent retained tracer activity within the stomach at 2 hours, 19 percent retained tracer activity within the stomach at 3 hours, and 1 percent retained tracer activity within the stomach at 4 hours. IMPRESSION: Normal gastric emptying half-time. Electronically signed by: Valerie Harper MD (01/17/2019 1:29 PM) [id number]
[2019-01-17] MEDS ORDERED: APIX5TAB PO (14:13)
--- NOTE | 2019-01-17 14:23 | NUR ---
PATIENT REFUSED SIX MIN. WALK. PATIENT STATES SHE WANTS TO GO TO PRIMARY AND DO SIX MIN. WALK. CURRENT O2 SAT AT ROOM AIR IS 96
--- NOTE | 2019-01-17 16:20 | NUR ---
PATIENT DISCHARGED TO HOME. INSTRUCTION GIVEN TO PATIENT. PIV AND HEART MONITOR REMOVED.ESCORTED PATIENT TO FRONT ENTRANCE PER WHEELCHAIR INTO A MEDICAL TRANSPORTATION.
[2019-01-17] MEDS ORDERED: APIXABAN 5 MG TABLET. PO SCH (21:00)
[2019-01-18 01:11] LABS: HEMOGLOBIN A1C 6.7 % (4.8-5.6)
[2019-01-19] MEDS ORDERED: metFORMIN 500 MG TABLET PO SCH (08:00)
[2019-01-23] MEDS ORDERED: ERGOCALCIFEROL (VITAMIN D2) 50,000 UNIT CAPSULE. PO SCH (09:00)
== END 2019-01-17 16:20 | disposition home or self-care (01) | DRG 309 ==
LOC: ER 14:12 → 2 SOUTH 18:00
PROVIDERS: ADMIT Internal Medicine; ATTEND Internal Medicine
DX: I48.92 Unspecified atrial flutter (principal); E66.2 Morbid (severe) obesity with alveolar hypoventilation; Z68.43 Body mass index [BMI] 50.0-59.9, adult; E11.43 Type 2 diabetes mellitus with diabetic autonomic (poly)neuropathy; I48.91 Unspecified atrial fibrillation; I10 Essential (primary) hypertension; E78.00 Pure hypercholesterolemia, unspecified; E11.9 Type 2 diabetes mellitus without complications; F43.10 Post-traumatic stress disorder, unspecified; F31.9 Bipolar disorder, unspecified; M19.90 Unspecified osteoarthritis, unspecified site; E87.6 Hypokalemia; J45.909 Unspecified asthma, uncomplicated; D25.9 Leiomyoma of uterus, unspecified; K76.0 Fatty (change of) liver, not elsewhere classified; D86.9 Sarcoidosis, unspecified; I27.20 Pulmonary hypertension, unspecified; E78.5 Hyperlipidemia, unspecified; K21.9 Gastro-esophageal reflux disease without esophagitis; Z98.51 Tubal ligation status; Z83.3 Family history of diabetes mellitus; Z82.49 Family history of ischemic heart disease and other diseases of the circulatory system; Z79.01 Long term (current) use of anticoagulants; Z79.84 Long term (current) use of oral hypoglycemic drugs; Z79.899 Other long term (current) drug therapy; Z98.891 History of uterine scar from previous surgery; Z99.81 Dependence on supplemental oxygen; K31.84 Gastroparesis
CPT/HCPCS: 36415; 71275; 74177; 78264; 80053; 81001; 82962; 83036; 83690; 83735; 83880; 84443; 84484; 85025; 87086; 93005; 93970; 96374; 96375; A9541; J2765; J3490; Q9967; 99285-25

== ENCOUNTER 2019-02-16 10:15 | Emergency (ER) | payer OTHER ==
[~2019-02-16] VITALS: Ht 157.5 cm; Wt 138.8 kg
[~2019-02-16 10:15] MED LIST changes: +APIX5TAB PO; +DILT180C29 PO; +HYDR-2145 PO; +MAG30ORA2 PO; +Pantoprazole PO
[2019-02-16] MEDS ORDERED: methylPREDNISolone SOD SUCC PF 125 MG/2 ML VIAL. IV ONE (10:45)
[2019-02-16] MEDS ORDERED: IPRATRPIUM/ALBUTEROL 0.5/2.5MG 3 ML NEBU. NEB ONE (10:45)
[2019-02-16 10:48] LABS: BASO % 1 % (0-3); EOS # 0.1 x10^3/uL (0.0-0.7); EOS % 1 % (0-3); HEMATOCRIT 38.4 % (36.0-47.0); HEMOGLOBIN 12.2 g/dL (12.0-15.5); LYMPH # 1.1 x10^3/uL (1.0-4.8); LYMPH % 24 % (24-48); MEAN CORPUSCULAR HEMOGLOBIN 26 pg (25-35); MEAN CORPUSCULAR HGB CONC 32 g/dL (31-37); MEAN CORPUSCULAR VOLUME 81 fL (79-100); MONO # 0.6 x10^3/uL (0.0-1.1); MONO % 13 % (0-9); NEUT # 2.9 x10^3uL (1.8-7.7); NEUT % 61 % (31-73); PLATELET COUNT 232 x10^3/uL (140-400); RED BLOOD COUNT 4.75 x10^6/uL (3.50-5.40); RED CELL DISTRIBUTION WIDTH 16.7 % (11.5-14.5); WHITE BLOOD COUNT 4.7 x10^3/uL (4.0-11.0)
--- NOTE | 2019-02-16 10:53 | EKG ---
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
[2019-02-16 11:03] LABS: CALCIUM 8.3 mg/dL (8.5-10.1); CREATININE 0.8 mg/dL (0.6-1.0); GFR 92.6; POTASSIUM 3.5 mmol/L (3.5-5.1)
[2019-02-16 11:11] LABS: ALBUMIN 3.4 g/dL (3.4-5.0); ALBUMIN/GLOBULIN RATIO 0.9 (1.0-1.7); TOTAL PROTEIN 7.3 g/dL (6.4-8.2)
--- NOTE | 2019-02-16 12:12 | RAD ---
PORTABLE CHEST 1V Clinical indications: Shortness of air COMPARISON: February 26, 2017. Findings: The left hemidiaphragm remains poorly visualized which may be due to chronic scarring or overlying soft tissues. No new lung infiltrate or pleural effusion or pulmonary edema or lung mass or pneumothorax is seen. The heart size is prominent but stable. The pulmonary vasculature, mediastinum and both william are stable. Impression: No new radiographic abnormality is seen. Electronically signed by: Meng Mejia MD (02/16/2019 12:09 PM) [place] [id number]
[2019-02-16] MEDS ORDERED: METH4TAB2 PO (13:06)
[2019-02-16] MEDS ORDERED: AZIT250T PO (13:06)
--- NOTE | 2019-02-16 13:07 | PHYS DOC ---
Past Medical History Past Medical History: A-Fib, Anxiety, Asthma, Diabetes-Type II, High Cholesterol, Hypertension, Other Additional Past Medical Histor: PTSD, MORBID OBESITY, SARCOIDOSIS Past Surgical History: , Tubal ligation, Other Additional Past Surgical Histo: uterine fibroids shrunk Alcohol Use: None Drug Use: None Adult General Chief Complaint Chief Complaint: SHORTNESS OF BREATH [facility] HPI Patient is a 48 year old female who was in by EMS because of shortness of breath. Patient states she has history of asthma and COPD on home oxygen and in process getting portable oxygen. Patient states she was at stool without taking care oxygen after returning home felt shortness of breath with heaviness in epigastric and lower substernal area and called 911. Patient rated her pain as a moderate pain without radiation and complaining of generalized weakness and dizziness with her shortness of breath. Patient denies fever and chills, sick contact, nausea and vomiting. Review of Systems Review of Systems Constitutional: Denies fever or chills [] Eyes: Denies change in visual acuity, redness, or eye pain [] HENT: Denies nasal congestion or sore throat [] Respiratory: Reports cough and shortness of breath Cardiovascular: No additional information not addressed in HPI [] GI: Reports abdominal pain, denies nausea, vomiting, bloody stools or diarrhea [ ] : Denies dysuria or hematuria [] Musculoskeletal: Denies back pain or joint pain [] Integument: Denies rash or skin lesions [] Neurologic: Denies headache, focal weakness or sensory changes [] Endocrine: Denies polyuria or polydipsia [] All other systems were reviewed and found to be within normal limits, except as documented in this note. Current Medications Current Medications Current Medications Medications (Trade) Dose Ordered Sig/Jagjit Start Time Stop Time Status Last Admin Dose Admin Albuterol/ Ipratropium (Duoneb) 3 ml 1X ONCE 02/16/19 10:45 02/16/19 10:46 DC 02/16/19 10:54 3 ML Methylprednisolone Sodium Succinate (SOLU-Medrol 125MG VIAL) 125 mg 1X ONCE 02/16/19 10:45 02/16/19 10:46 DC 02/16/19 11:42 125 MG Allergies Allergies Allergies Coded Allergies Type Severity Reaction Last Updated Verified No Known Drug Allergies 09/21/15 No Physical Exam Physical Exam Constitutional: Well developed, well nourished, moderate distress, non-toxic appearance, morbidly obese. [] HENT: Normocephalic, atraumatic, bilateral external ears normal, oropharynx moist, no oral exudates, nose normal. [] Eyes: PERRLA, EOMI, conjunctiva normal, no discharge. [] Neck: Normal range of motion, no tenderness, supple, no stridor. [] Cardiovascular: Tachycardia, no murmur [] Lungs & Thorax: Mild respiratory distress with bilateral wheezing and rhonchi and decrease of air movement Abdomen: Bowel sounds normal, soft, no tenderness, no masses, no pulsatile masses. [] Skin: Warm, dry, no erythema, no rash. [] Back: No tenderness, no CVA tenderness. [] Extremities: No tenderness, no cyanosis, no clubbing, ROM intact, 1+ lower extremity edema. [] Neurologic: Alert and oriented X 3, normal motor function, normal sensory function, no focal deficits noted. [] Psychologic: Affect anxious, judgement normal, mood normal. [] Current Patient Data Vital Signs Vital Signs Date Time Temp Pulse Resp B/P (MAP) Pulse Ox O2 Delivery O2 Flow Rate FiO2 02/16/19 13:15 106 28 156/81 (106) 95 Nasal Cannula 2.0 02/16/19 10:15 98.2 98.2 Lab Values Laboratory Tests Test 02/16/19 10:30 White Blood Count 4.7 x10^3/uL (4.0-11.0) Red Blood Count 4.75 x10^6/uL (3.50-5.40) Hemoglobin 12.2 g/dL (12.0-15.5) Hematocrit 38.4 % (36.0-47.0) Mean Corpuscular Volume 81 fL (79-100) Mean Corpuscular Hemoglobin 26 pg (25-35) Mean Corpuscular Hemoglobin Concent 32 g/dL (31-37) Red Cell Distribution Width 16.7 % (11.5-14.5) H Platelet Count 232 x10^3/uL (140-400) Neutrophils (%) (Auto) 61 % (31-73) Lymphocytes (%) (Auto) 24 % (24-48) Monocytes (%) (Auto) 13 % (0-9) H Eosinophils (%) (Auto) 1 % (0-3) Basophils (%) (Auto) 1 % (0-3) Neutrophils # (Auto) 2.9 x10^3uL (1.8-7.7) Lymphocytes # (Auto) 1.1 x10^3/uL (1.0-4.8) Monocytes # (Auto) 0.6 x10^3/uL (0.0-1.1) Eosinophils # (Auto) 0.1 x10^3/uL (0.0-0.7) Basophils # (Auto) 0.0 x10^3/uL (0.0-0.2) Sodium Level 142 mmol/L (136-145) Potassium Level 3.5 mmol/L (3.5-5.1) Chloride Level 104 mmol/L (98-107) Carbon Dioxide Level 27 mmol/L (21-32) Anion Gap 11 (6-14) Blood Urea Nitrogen 10 mg/dL (7-20) Creatinine 0.8 mg/dL (0.6-1.0) Estimated GFR (Cockcroft-Gault) 92.6 BUN/Creatinine Ratio 13 (6-20) Glucose Level 106 mg/dL (70-99) H Calcium Level 8.3 mg/dL (8.5-10.1) L Total Bilirubin 1.0 mg/dL (0.2-1.0) Aspartate Amino Transferase (AST) 22 U/L (15-37) Alanine Aminotransferase (ALT) 12 U/L (14-59) L Alkaline Phosphatase 85 U/L (46-116) Creatine Kinase 198 U/L (26-192) H Creatine Kinase MB (Mass) 2.0 ng/mL (0.0-3.6) Creatine Kinase MB Relative Index 1.0 % (0-4) Troponin I Quantitative 0.026 ng/mL (0.000-0.055) XQ-Ypt-M-Type Natriuretic Peptide 1013 pg/mL (0-124) H Total Protein 7.3 g/dL (6.4-8.2) Albumin 3.4 g/dL (3.4-5.0) Albumin/Globulin Ratio 0.9 (1.0-1.7) L Laboratory Tests 02/16/19 10:30 Laboratory Tests 02/16/19 10:30 EKG EKG EKG interpreted by me. EKG at 1024 showed sinus tachycardia at rate of 116, normal OH and QT intervals, no acute ST and T-wave abnormalities, poor R-wave progress in anteroseptal leads. Radiology/Procedures Radiology/Procedures [facility] [address] [place] [address] IMAGING REPORT Signed PATIENT: FABIO PERES ACCOUNT: [id number] : 1970 LOCATION: ER AGE: 48 SEX: F EXAM STATUS: REG ER ORD. PHYSICIAN: MAURO LEWIS MD REASON: shortness of breath PROCEDURE: PORTABLE CHEST 1V PORTABLE CHEST 1V Clinical indications: Shortness of air COMPARISON: February 26, 2017. Findings: The left hemidiaphragm remains poorly visualized which may be due to chronic scarring or overlying soft tissues. No new lung infiltrate or pleural effusion or pulmonary edema or lung mass or pneumothorax is seen. The heart size is prominent but stable. The pulmonary vasculature, mediastinum and both william are stable. Impression: No new radiographic abnormality is seen. Electronically signed by: Meng Mejia MD (02/16/2019 12:09 PM) [id number] DICTATED and SIGNED BY: MENG MEJIA MD DATE: 02/16/19 120 Course & Med Decision Making Course & Med Decision Making Pertinent Labs and Imaging studies reviewed. (See chart for details) Evaluation of patient in ER showed 48-year-old female patient with history of COPD on home oxygen that his shortness of breath after not getting her oxygen outside of her home. Patient treated with oxygen and DuoNeb and Solu-Medrol and had stable O2 sat more than 90%. Patient had heart rate more than 100 with history of chronic tachycardia. She did not have leukocytosis or infiltration in chest x-ray. Plan discharge patient home with diagnose of COPD exacerbation instruction to continue home oxygen. Dragon Disclaimer Dragon Disclaimer This electronic medical record was generated, in whole or in part, using a voice recognition dictation system. Departure Departure Impression: Primary Impression: COPD exacerbation Additional Impressions: Dyspnea on exertion CHF (congestive heart failure) Sinus tachycardia Morbid obesity with BMI of 50.0-59.9, adult Anxiety Disposition: 01 HOME, SELF-CARE (at 1302) Condition: IMPROVED Referrals: PATRICIA AGUILAR MD (PCP) Patient Instructions: Chronic Obstructive Pulmonary Disease Exacerbation, Heart Failure Additional Instructions: Continue home inhaler and oxygen Follow-up with your primary care physician in 2-3 days Return to ER if not getting better Scripts Azithromycin (ZITHROMAX) 250 Mg Tablet 1 PKG PO UD for infection, #1 PKG Prov: MAURO LEWIS MD 02/16/19 Methylprednisolone (MEDROL) 4 Mg Tab.ds.pk 1 PKG PO UD for inflammation, #1 PKG Prov: MAURO LEWIS MD 02/16/19 Problem Qualifiers Additional Impressions: CHF (congestive heart failure) Heart failure type: unspecified Heart failure chronicity: unspecified Qualified Codes: I50.9 - Heart failure, unspecified MAURO LEWIS MD Feb 16, 2019 13:07
[2019-02-16 13:15] VITALS: BP 156/81
== END 2019-02-16 13:30 | disposition home or self-care (01) ==
LOC: ER 10:15
DX: J44.1 Chronic obstructive pulmonary disease with (acute) exacerbation (principal); I11.0 Hypertensive heart disease with heart failure; I50.9 Heart failure, unspecified; F41.9 Anxiety disorder, unspecified; R00.0 Tachycardia, unspecified; E66.9 Obesity, unspecified; Z68.43 Body mass index [BMI] 50.0-59.9, adult; I48.91 Unspecified atrial fibrillation; E78.00 Pure hypercholesterolemia, unspecified
CPT/HCPCS: 36415; 71045; 80053; 82553; 83880; 84484; 85025; 93005; 94640; 96374; 99284; J2930; J7620

== ENCOUNTER → 2019-06-21 | Outpatient (CLI) | payer OTHER ==
[~2019-06-21] MED LIST changes: +AZIT250T PO; +METH4TAB2 PO
--- NOTE | 2019-06-21 10:06 | KCIC ---
BILATERAL DIAGNOSTIC MAMMOGRAPHY History: Abnormality of the left breast seen on outside CT. Comparison: Bilateral mammogram, 2016 Technique: Bilateral digital mammogram views were obtained. Findings: Breast Tissue Density A : The breasts are almost entirely fatty. Stable intramammary lymph node upper-outer left breast at posterior depth. There are no dominant masses, suspicious microcalcifications or architectural distortion. IMPRESSION: No mammographic evidence of malignancy. Recommend routine follow-up. BI-RADS category 2: Benign findings. The images were reviewed with computer-aided detection. Patient information is entered into the reminder system with a target due date for the next screening mammogram. Mammography is the most sensitive method for finding small breast cancers, but it does not detect them all and is not a substitute for careful clinical examination. A negative mammogram does not negate a clinically suspicious finding and should not result in delay in biopsying a clinically suspicious abnormality. "Our facility is accredited by the [employer] Mammography Program." Electronically signed by: Hero Vega MD (06/21/2019 10:03 AM) [id number]
== END | disposition home or self-care (01) ==
LOC: KCIC MAMMO 08:36
PROVIDERS: ATTEND Internal Medicine
DX: R92.8 Other abnormal and inconclusive findings on diagnostic imaging of breast (principal)
CPT/HCPCS: 77066

== ENCOUNTER → 2020-07-04 | Outpatient (CLI) | payer OTHER ==
[~2020-07-04] MED LIST changes: +OMEP40CA45 PO; -OMEP40CA5 PO; +SIMV20TA18 PO; -SIMV20TA3 PO; +TRAZ-123 PO; -TRAZ-86 PO
[2020-07-04 16:02] LABS: BASO % 1 % (0-3); EOS # 0.1 x10^3/uL (0.0-0.7); EOS % 3 % (0-3); HEMATOCRIT 36.2 % (36.0-47.0); HEMOGLOBIN 11.4 g/dL (12.0-15.5); LYMPH # 1.2 x10^3/uL (1.0-4.8); LYMPH % 25 % (24-48); MEAN CORPUSCULAR HEMOGLOBIN 23 pg (25-35); MEAN CORPUSCULAR HGB CONC 31 g/dL (31-37); MEAN CORPUSCULAR VOLUME 75 fL (79-100); MONO # 0.7 x10^3/uL (0.0-1.1); MONO % 16 % (0-9); NEUT # 2.6 x10^3/uL (1.8-7.7); NEUT % 55 % (31-73); PLATELET COUNT 265 x10^3/uL (140-400); RED BLOOD COUNT 4.85 x10^6/uL (3.50-5.40); RED CELL DISTRIBUTION WIDTH 16.8 % (11.5-14.5); WHITE BLOOD COUNT 4.7 x10^3/uL (4.0-11.0)
[2020-07-04 16:22] LABS: ALBUMIN 3.3 g/dL (3.4-5.0); ALBUMIN/GLOBULIN RATIO 0.8 (1.0-1.7); CALCIUM 8.3 mg/dL (8.5-10.1); CREATININE 0.7 mg/dL (0.6-1.0); GFR 107.6; MAGNESIUM 1.6 mg/dL (1.8-2.4); POTASSIUM 4.1 mmol/L (3.5-5.1); TOTAL BILIRUBIN 0.7 mg/dL (0.2-1.0); TOTAL PROTEIN 7.6 g/dL (6.4-8.2)
[2020-07-04 16:29] LABS: FREE T4 1.29 ng/dL (0.76-1.46); THYROID STIM HORMONE (TSH) 2.566 uIU/mL (0.358-3.74)
[2020-07-05 03:09] LABS: HEMOGLOBIN A1C 6.3 % (4.8-5.6)
== END | disposition home or self-care (01) ==
LOC: LAB 14:43
PROVIDERS: ATTEND Internal Medicine
DX: I10 Essential (primary) hypertension (principal); E11.9 Type 2 diabetes mellitus without complications; E78.5 Hyperlipidemia, unspecified; J44.9 Chronic obstructive pulmonary disease, unspecified; D64.9 Anemia, unspecified; E55.9 Vitamin D deficiency, unspecified
CPT/HCPCS: 36415; 80053; 83036; 83735; 83880; 84439; 84443; 85025

== ENCOUNTER → 2020-07-16 | Outpatient (CLI) | payer OTHER ==
--- NOTE | 2020-07-16 11:45 | KCIC ---
Bilateral digital screening mammograms: Reason for examination: Routine screening. Comparison is made to previous study dated 12/25/2016. Interpretation is made with the benefit of CAD. A recorder device is present in the medial left breast. The skin and nipples show no abnormalities. No abnormal lymph nodes are seen. The breast parenchyma is predominantly fatty. (Breast density: Category A.) There continues to be a nodule consistent with an intramammary lymph node at the 2:00 C position of the left breast which is stable. There are no new dominant masses, suspicious calcifications or architectural distortions. Impression: No evidence of malignancy. Recommend routine screening. BI-RADS Category 2: Benign. "Our facility is accredited by the [employer] Mammography Program." This patient's information has been entered into a reminder system for the patient to be notified with the results of her examination and a target date for the next mammogram. Electronically signed by: Candy Brito MD (07/16/2020 11:42 AM) [id number]
== END | disposition home or self-care (01) ==
LOC: KCIC MAMMO 09:19
PROVIDERS: ATTEND Obstetrics & Gynecology
DX: Z12.31 Encounter for screening mammogram for malignant neoplasm of breast (principal); N64.89 Other specified disorders of breast
CPT/HCPCS: 77067

== ENCOUNTER 2021-03-14 12:58 | Observation (INO) | payer OTHER ==
[~2021-03-14] VITALS: Ht 157.5 cm; Wt 147.7 kg
[~2021-03-14 12:58] MED LIST changes: -LISI-338 PO; +LISI-517 PO
--- NOTE | 2021-03-14 13:41 | RAD ---
Single AP view of the chest. Comparison: 02/16/2019. Indication: Chest pain Findings: New implanted loop recorder device is identified. The heart is mildly enlarged but stable. There is no pneumothorax or effusion. There is mild pulmonary vascular congestion. Impression: 1. Mild pulmonary vascular congestion cardiomegaly. Electronically signed by: Brando Flores MD (03/14/2021 1:39 PM) [id number]
[2021-03-14 13:55] LABS: BASO % 1 % (0-3); EOS # 0.1 x10^3/uL (0.0-0.7); EOS % 3 % (0-3); HEMATOCRIT 35.7 % (36.0-47.0); HEMOGLOBIN 11.5 g/dL (12.0-15.5); LYMPH % 20 % (24-48); MEAN CORPUSCULAR HEMOGLOBIN 27 pg (25-35); MEAN CORPUSCULAR HGB CONC 32 g/dL (31-37); MEAN CORPUSCULAR VOLUME 85 fL (79-100); MONO # 0.6 x10^3/uL (0.0-1.1); MONO % 13 % (0-9); NEUT # 3.2 x10^3/uL (1.8-7.7); NEUT % 64 % (31-73); PLATELET COUNT 210 x10^3/uL (140-400); RED BLOOD COUNT 4.22 x10^6/uL (3.50-5.40); RED CELL DISTRIBUTION WIDTH 14.7 % (11.5-14.5)
[2021-03-14 14:12] LABS: CALCIUM 9.2 mg/dL (8.5-10.1); CREATININE 0.9 mg/dL (0.6-1.0); GFR 80.2; POTASSIUM 3.9 mmol/L (3.5-5.1)
[2021-03-14 14:19] LABS: ALBUMIN 3.6 g/dL (3.4-5.0); MAGNESIUM 1.6 mg/dL (1.8-2.4); TOTAL BILIRUBIN 0.6 mg/dL (0.2-1.0); TOTAL PROTEIN 7.3 g/dL (6.4-8.2)
--- NOTE | 2021-03-14 14:38 | EKG ---
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
[2021-03-14] MEDS ORDERED: IOHEXOL 350 MG/ML 100 ML VIAL. IV ONE (15:15)
[2021-03-14] MEDS ORDERED: CONTRAST GIVEN. MC PRN (15:15)
[2021-03-14 15:21] LABS: BILIRUBIN,URINE NEGATIVE (NEG); CLARITY,URINE CLEAR; COLOR,URINE YELLOW; NITRITE,URINE NEGATIVE (NEG); PROTEIN,URINE NEGATIVE (NEG-TRACE)
--- NOTE | 2021-03-14 15:50 | RAD ---
Exam: CT of chest with contrast INDICATION: Chest pain, elevated d-dimer TECHNIQUE: Sequential axial images through the chest obtained following the administration of 100 mL of Isovue-370 IV contrast. Sagittal and coronal reformatted images were reconstructed from the axial data and reviewed. 3-D reformatted images were reconstructed from the axial data and reviewed. Exposure: One or more of the following in the visualized dose reduction techniques were utilized for this examination: 1. Automated exposure control 2. Adjustment of the MA and/or KV according to patient size 3. Use of iterative of reconstructive technique Comparisons: 01/16/2019 FINDINGS: Visualized portions of the thyroid are unremarkable. There are mild right hilar adenopathy. Prominent bilateral axillary adenopathy Heart is mildly enlarged. No pericardial effusion. Thoracic aorta has a normal course and caliber. Pu lmonary artery is not enlarged. No pulmonary embolus identified within the main, lobar or segmental p ulmonary arteries. Airways are patent. No consolidation or pneumothorax. No suspicious pulmonary nodules. No pleural effusion or thickening. Visualized upper abdomen is unremarkable. IMPRESSION: 1. No pulmonary embolus identified within the main, lobar or segmental pulmonary arteries. 2. Similar-appearing hilar and axillary lymph nodes which are prominent/mildly enlarged. This is non specific in etiology. Correlate with risk factors and consider continued follow-up imaging. Electronically signed by: Afia Rdz MD (03/14/2021 3:47 PM) [facility]
[2021-03-14 15:51] LABS: WBC,URINE OCC /HPF (0-4)
[2021-03-14 15:52] LABS: BACTERIA,URINE FEW /HPF (0-FEW)
[2021-03-14 17:51] VITALS: BP 179/79
[2021-03-14] MEDS ORDERED: TADA20TA54 PO (18:05)
[2021-03-14] MEDS ORDERED: [UNRECOGNIZED DRUG - CODE] INH (18:05)
[2021-03-14] MEDS ORDERED: GABA400C7 PO (18:05)
[2021-03-14] MEDS ORDERED: LOSA100T14 PO (18:05)
[2021-03-14] MEDS ORDERED: FLEC100T PO (18:05)
[2021-03-14] MEDS ORDERED: OMEP40CA45 PO (18:05)
--- NOTE | 2021-03-14 18:12 | PDOC1 ---
History and Physical Date of Service: DOS: DATE: 03/14/21 TIME: 18:06 Chief Complaint: Chief Complain: Chest pain History of Present Illness: HPI: 50-year-old female with multiple morbidities pertinent for pulmonary hypertension currently on treprostinil inhaler, CHF, atrial fibrillation on Eliquis, history of loop recorder placement, morbid obesity, TEO who comes in due to chest pain for the last 3 days. She describes her chest pain as sharp left substernal in location and travels to her right shoulder. This will last for about 5 seconds and then her next episode will be about 12 hours later at night. This has been occurring for the last 3 days. She says she is very sensitive with her body and she knows when something is wrong. She describes the pain as 8 out of 10. Denies any nausea vomiting, syncope, palpitations, shortness of breath, pedal edema, abdominal pain, diarrhea or dysuria. Of note, patient does follow with Dr. Sahni and Dr. Navarro and she believes that this is where her loop recorder was placed. She still has a loop recorder in place and has not sent in the data for it yet. Past Medical/Surgical History: PMH/PSH: Past Medical History Cardiovascular: HTN, atrial fibrillation on Eliquis, dyslipidemia, CHF Pulmonary: Pulmonary hypertension currently on treprostinil inhaler CENTRAL NERVOUS SYSTEM: Neuropathy, GI: GERD Heme/Onc: No pertinent hx Hepatobiliary: No pertinent hx Psych: Anxiety, Bipolar Musculoskeletal: Osteoarthritis Rheumatologic: No pertinent hx Infectious disease: No pertinent hx Renal/: Urinary Incontinence, Other Endocrine: Diabetes, morbid obesity Past Surgical History Past Surgical History: Allergies: Allergies: Uncoded Allergies: nitrites (Allergy, Unknown, Unknown, 03/14/21) "I'm not sure. LENARD just told me to tell everyone I had an allergic reaction to this." Family History: Family History: Reviewed with no relevant findings Social History: Social History: Denies alcohol, tobacco or drug abuse Current Medications: Current Medications Current Medications Iohexol (Omnipaque 350 Mg/ml) 100 ml 1X ONCE IV Last administered on 03/14/21at 15:37; Start 03/14/21 at 15:15; Stop 03/14/21 at 15:16; Status DC Info (CONTRAST GIVEN -- Rx MONITORING) 1 each PRN DAILY PRN MC SEE COMMENTS; Start 03/14/21 at 15:15; Stop 03/16/21 at 15:14 Active Scripts Active Zithromax (Azithromycin) 250 Mg Tablet 1 Pkg PO UD Medrol (Methylprednisolone) 4 Mg Tab.ds.pk 1 Pkg PO UD Hydrochlorothiazide Tablet (Hydrochlorothiazide) 25 Mg Tablet 25 Mg PO DAILY 30 Days [Pantoprazole] 40 MG Tablet.dr 40 Mg PO DAILYAC MDD 1 Mag-Al Plus Xs Suspension (Mag Hydrox/Al Hydrox/Simeth) 30 Ml Oral.susp 30 Ml PO PRN Q2HR PRN MDD 1 Diltiazem 24HR Cd (Diltiazem Hcl) 180 Mg Cap.er.24h 180 Mg PO DAILY MDD 1 Barnum 5-325 Tablet (Acetaminophen/Hydrocodone Bitart) 1 Each Tablet 1-2 Each PO PRN Q6HRS PRN as needed for pain Reported Tyvaso Inhalation Starter Kit (Treprostinil/Nebulizer/Accesor) 1.74 Mg/2.9 Ml Ampul.neb INH Q4HRS Losartan Potassium 100 Mg Tablet 1 Tab PO DAILY Flecainide Acetate 100 Mg Tablet 1 Tab PO BID Omeprazole 40 Mg Capsule.dr 40 Mg PO BID Tadalafil 20 Mg Tablet 1 Tab PO QODAY Gabapentin 400 Mg Capsule 400 Cap PO TID Eliquis (Apixaban) 5 Mg Tablet 5 Mg PO BID Medroxyprogesterone Acetate 10 Mg Tablet 10 Mg PO DAILY 10 Days Vitamin D (Cholecalciferol (Vitamin D3)) 50,000 Unit Capsule 50,000 Unit PO WEEKLY Triamcinolone Acetonide 80 Gm Oint...g. 80 Gm TP Trazodone Hcl 50 Mg Tablet 50 Mg PO HS Proair Hfa Inhaler (Albuterol Sulfate) 8.5 Gm Hfa.aer.ad 1 Puff INH PRN Q6HRS PRN Losartan Potassium (Losartan Potassium) 25 Mg Tablet 25 Mg PO DAILY Hydroxyzine Hcl 10 Mg/5 Ml Syrup 10 Mg PO TID Venlafaxine Hcl Er (Venlafaxine Hcl) 150 Mg Tab.er.24 150 Mg PO DAILY Metformin Hcl 500 Mg Tablet 1,000 Mg PO BIDBFRMEAL Simvastatin 20 Mg Tablet 20 Mg PO HS ROS: Review of Systems Review of System REVIEW OF SYSTEMS: GENERAL: Denies weakness SKIN: No bruising, hair changes or rashes. EYES: No blurred, double or loss of vision. NOSE AND THROAT: No history of nosebleeds, hoarseness or sore throat. HEART: No history of palpitations, chest pain or shortness of breath on exertion. LUNGS: Denies cough, hemoptysis, wheezing or shortness of breath. GASTROINTESTINAL: Denies changes in appetite, nausea, vomiting, diarrhea or constipation. GENITOURINARY: No history of frequency, urgency, hesitancy or nocturia. NEUROLOGIC: Denies history of numbness, tingling, or tremor. PSYCHIATRIC: No history of panic, anxiety or depression. ENDOCRINE: No history of heat or cold intolerance, polyuria or polydipsia. EXTREMITIES: Denies joint pain, pain on walking or stiffness. Physical Exam: Vital Signs: Vital Signs Date Time Temp Pulse Resp B/P (MAP) Pulse Ox O2 Delivery O2 Flow Rate FiO2 03/14/21 17:51 98.1 77 20 179/79 (112) 100 Room Air 98.1 03/14/21 16:58 2.0 Physcial Exam: GEN: No apparent distress. Alert and oriented HEENT: Normal cephalic, atraumatic, external auditory canals are patent EYES: Extraocular muscles are intact, pupil are equally round and reactive to light and accommodation MUSCULOSKELETAL: Well developed , well nourished, good range of motion ENDOCRINE: No thyromegaly was palpated LYMPHATICS: No cervical chain or axillary nodes were noted HEMATOPOIETIC: No bruising NECK: Supple, no JVD, no thyromegaly was noted LUNGS: Clear to auscultation in all lung troncoso without rhonchi or wheezing HEART: RRR, S!, S2 present. Peripheral pulses intact, no obvious murmurs noted ABDOMEN: Soft, nontender. Positive bowel sounds, no organomegaly, normal bowel sounds EXTREMITIES: Without clubbing, cyanosis, or edema. Pedal pulses intact. Negative Homans sign NEUROLOGIC: Normal speech and tone. A&O x 3, moves all extremities, no obvious focal deficits PSYCHIATRIC: Normal affect, normal mood. Stable SKIN: No ulcerations or rashes, good skin turgor, no jaundice VASCULAR: Good capillary refill, neurovascular bundle appears to be intact Labs: Labs: Laboratory Tests Test 03/14/21 13:45 03/14/21 15:12 White Blood Count 5.0 x10^3/uL (4.0-11.0) Red Blood Count 4.22 x10^6/uL (3.50-5.40) Hemoglobin 11.5 g/dL (12.0-15.5) Hematocrit 35.7 % (36.0-47.0) Mean Corpuscular Volume 85 fL (79-100) Mean Corpuscular Hemoglobin 27 pg (25-35) Mean Corpuscular Hemoglobin Concent 32 g/dL (31-37) Red Cell Distribution Width 14.7 % (11.5-14.5) Platelet Count 210 x10^3/uL (140-400) Neutrophils (%) (Auto) 64 % (31-73) Lymphocytes (%) (Auto) 20 % (24-48) Monocytes (%) (Auto) 13 % (0-9) Eosinophils (%) (Auto) 3 % (0-3) Basophils (%) (Auto) 1 % (0-3) Neutrophils # (Auto) 3.2 x10^3/uL (1.8-7.7) Lymphocytes # (Auto) 1.0 x10^3/uL (1.0-4.8) Monocytes # (Auto) 0.6 x10^3/uL (0.0-1.1) Eosinophils # (Auto) 0.1 x10^3/uL (0.0-0.7) Basophils # (Auto) 0.0 x10^3/uL (0.0-0.2) D-Dimer (Nichol) 0.81 ug/mlFEU (0.00-0.50) Sodium Level 143 mmol/L (136-145) Potassium Level 3.9 mmol/L (3.5-5.1) Chloride Level 104 mmol/L (98-107) Carbon Dioxide Level 30 mmol/L (21-32) Anion Gap 9 (6-14) Blood Urea Nitrogen 17 mg/dL (7-20) Creatinine 0.9 mg/dL (0.6-1.0) Estimated GFR (Cockcroft-Gault) 80.2 BUN/Creatinine Ratio 19 (6-20) Glucose Level 107 mg/dL (70-99) Calcium Level 9.2 mg/dL (8.5-10.1) Magnesium Level 1.6 mg/dL (1.8-2.4) Total Bilirubin 0.6 mg/dL (0.2-1.0) Aspartate Amino Transf (AST/SGOT) 21 U/L (15-37) Alanine Aminotransferase (ALT/SGPT) 21 U/L (14-59) Alkaline Phosphatase 169 U/L (46-116) Creatine Kinase 103 U/L (26-192) Creatine Kinase MB (Mass) 0.9 ng/mL (0.0-3.6) Creatine Kinase MB Relative Index 0.9 % (0-4) Troponin I Quantitative < 0.017 ng/mL (0.000-0.055) Total Protein 7.3 g/dL (6.4-8.2) Albumin 3.6 g/dL (3.4-5.0) Albumin/Globulin Ratio 1.0 (1.0-1.7) Lipase 217 U/L (73-393) Urine Collection Type Void Urine Color Yellow Urine Clarity Clear Urine pH 6.0 (<5.0-8.0) Urine Specific [place] 1.020 (1.000-1.030) Urine Protein Negative mg/dL (NEG-TRACE) Urine Glucose (UA) Negative mg/dL (NEG) Urine Ketones (Stick) Negative mg/dL (NEG) Urine Blood Small (NEG) Urine Nitrite Negative (NEG) Urine Bilirubin Negative (NEG) Urine Urobilinogen Dipstick 1.0 mg/dL (0.2 mg/dL) Urine Leukocyte Esterase Trace (NEG) Urine RBC 3-5 /HPF (0-2) Urine WBC Occ /HPF (0-4) Urine Squamous Epithelial Cells Many /LPF Urine Bacteria Few /HPF (0-FEW) Urine Mucus Slight /LPF Laboratory Tests Test 03/14/21 13:45 03/14/21 15:12 White Blood Count 5.0 x10^3/uL (4.0-11.0) Red Blood Count 4.22 x10^6/uL (3.50-5.40) Hemoglobin 11.5 g/dL (12.0-15.5) Hematocrit 35.7 % (36.0-47.0) Mean Corpuscular Volume 85 fL (79-100) Mean Corpuscular Hemoglobin 27 pg (25-35) Mean Corpuscular Hemoglobin Concent 32 g/dL (31-37) Red Cell Distribution Width 14.7 % (11.5-14.5) Platelet Count 210 x10^3/uL (140-400) Neutrophils (%) (Auto) 64 % (31-73) Lymphocytes (%) (Auto) 20 % (24-48) Monocytes (%) (Auto) 13 % (0-9) Eosinophils (%) (Auto) 3 % (0-3) Basophils (%) (Auto) 1 % (0-3) Neutrophils # (Auto) 3.2 x10^3/uL (1.8-7.7) Lymphocytes # (Auto) 1.0 x10^3/uL (1.0-4.8) Monocytes # (Auto) 0.6 x10^3/uL (0.0-1.1) Eosinophils # (Auto) 0.1 x10^3/uL (0.0-0.7) Basophils # (Auto) 0.0 x10^3/uL (0.0-0.2) D-Dimer (Nichol) 0.81 ug/mlFEU (0.00-0.50) Sodium Level 143 mmol/L (136-145) Potassium Level 3.9 mmol/L (3.5-5.1) Chloride Level 104 mmol/L (98-107) Carbon Dioxide Level 30 mmol/L (21-32) Anion Gap 9 (6-14) Blood Urea Nitrogen 17 mg/dL (7-20) Creatinine 0.9 mg/dL (0.6-1.0) Estimated GFR (Cockcroft-Gault) 80.2 BUN/Creatinine Ratio 19 (6-20) Glucose Level 107 mg/dL (70-99) Calcium Level 9.2 mg/dL (8.5-10.1) Magnesium Level 1.6 mg/dL (1.8-2.4) Total Bilirubin 0.6 mg/dL (0.2-1.0) Aspartate Amino Transf (AST/SGOT) 21 U/L (15-37) Alanine Aminotransferase (ALT/SGPT) 21 U/L (14-59) Alkaline Phosphatase 169 U/L (46-116) Creatine Kinase 103 U/L (26-192) Creatine Kinase MB (Mass) 0.9 ng/mL (0.0-3.6) Creatine Kinase MB Relative Index 0.9 % (0-4) Troponin I Quantitative < 0.017 ng/mL (0.000-0.055) Total Protein 7.3 g/dL (6.4-8.2) Albumin 3.6 g/dL (3.4-5.0) Albumin/Globulin Ratio 1.0 (1.0-1.7) Lipase 217 U/L (73-393) Urine Collection Type Void Urine Color Yellow Urine Clarity Clear Urine pH 6.0 (<5.0-8.0) Urine Specific [place] 1.020 (1.000-1.030) Urine Protein Negative mg/dL (NEG-TRACE) Urine Glucose (UA) Negative mg/dL (NEG) Urine Ketones (Stick) Negative mg/dL (NEG) Urine Blood Small (NEG) Urine Nitrite Negative (NEG) Urine Bilirubin Negative (NEG) Urine Urobilinogen Dipstick 1.0 mg/dL (0.2 mg/dL) Urine Leukocyte Esterase Trace (NEG) Urine RBC 3-5 /HPF (0-2) Urine WBC Occ /HPF (0-4) Urine Squamous Epithelial Cells Many /LPF Urine Bacteria Few /HPF (0-FEW) Urine Mucus Slight /LPF Images: Images CXR Impression: 1. Mild pulmonary vascular congestion cardiomegaly. CTA CHEST IMPRESSION: 1. No pulmonary embolus identified within the main, lobar or segmental pulmonary arteries. 2. Similar-appearing hilar and axillary lymph nodes which are prominent/mildly enlarged. This is nonspecific in etiology. Correlate with risk factors and consider continued follow-up imaging. Assessment/Plan Assessment/Plan Chest pain concerning for unstable angina/NSTEMI Hypertensive urgency Elevated D-dimer concerning for PE, ruled out with CT of the chest Elevated alkaline phosphatase likely due to increased bone turnover Hypomagnesemia History of diabetes mellitus type 2 History of pulmonary hypertension currently on treprostinil History of cirrhosis History of dyslipidemia History of atrial fibrillation currently on Eliquis Loop recorder implanted OHS/TEO Morbid obesity Admit to medicine for observation Obtain [facility] records of most recent visit and echocardiogram Labetalol IV as needed as needed for systolic blood pressure greater than 180 Cardiology consult Heart score 5 Troponin negative x1 Continue aspirin Cardiology consulted for predischarge stress testing or left heart cath Continue nitroglycerin as needed for pain Continue beta-padma if blood pressures allow Continue high intensity statins IV morphine as needed Consider Lovenox Maintain O2 sats between 88 to 95% Trend troponins Repeat EKG in the a.m. Continue telemetry monitoring Monitor for electrolyte abnormalities Avoid NSAIDs Pulmonology consult for pulmonary hypertension management Eliquis for DVT prophylaxis Protonix GI prophylaxis ADA diet Full code Discussed with RN and SW Disposition inpatient management as above Surrogate decision maker is Otilio Cruz Justifications for Admission Other Justification ADE HAMILTON MD March 14, 2021 18:12
--- NOTE | 2021-03-14 18:27 | ED.ADGEN ---
Past Medical History Past Medical History: A-Fib, Anxiety, Asthma, Diabetes-Type II, High Cholesterol, Hypertension, Other Additional Past Medical Histor: PTSD, MORBID OBESITY, SARCOIDOSIS, pulmonary hypertension Past Surgical History: , Tubal ligation, Other Additional Past Surgical Histo: uterine fibroids shrunk Smoking Status: Never Smoker Alcohol Use: None Drug Use: None General Adult EDM: Chief Complaint: CHEST PAIN HPI: HPI: Patient is a 50 year old AA female who presents emergency department with complaints of left-sided chest pain that radiates to her right shoulder that has been intermittent for the last 2 days. Patient currently denies any chest pain. She denies any nausea, vomiting, diaphoresis, back pain, dizziness, headache, fever, cough, shortness of breath, sore throat, or abdominal pain. Patient denies any swelling in her legs. She reports a history of pulmonary hypertension, high blood pressure, atrial fibrillation, type, anxiety, asthma, high cholesterol. Patient states she has been taking her medications as prescribed. Patient states at first she thought that her chest pain was due to indigestion, she states that she ate a lot of cereal last week and drank a lot of milk that she normally does not eat or drink but she had her menstrual cycle last week and was craving sweets that she ate an abnormal amount of sugary cereals. Review of Systems: Review of Systems: Complete ROS is negative unless otherwise noted in HPI. Current Medications: Current Medications Medications (Trade) Dose Ordered Sig/Jagjit Start Time Stop Time Status Last Admin Dose Admin Info (CONTRAST GIVEN -- Rx MONITORING) 1 each PRN DAILY PRN 03/14/21 15:15 03/16/21 15:14 Iohexol (Omnipaque 350 Mg/ml) 100 ml 1X ONCE 03/14/21 15:15 03/14/21 15:16 DC 03/14/21 15:37 100 ML Physical Exam: PE: See Above Constitutional: Well developed, well nourished, no acute distress, non-toxic ap pearance, anxious, morbidly obese. [] HENT: Normocephalic, atraumatic, bilateral external ears normal, nose normal. [] Eyes: PERRLA, EOMI, conjunctiva normal, no discharge. [] Neck: Normal range of motion, no stridor. [] Cardiovascular:Heart rate regular rhythm Lungs & Thorax: Respirations even and unlabored, no retractions, no respiratory distress, no wheezing Abdomen: soft, no tenderness Skin: Warm, dry, no erythema, no rash. [] Extremities: No cyanosis, ROM intact, 1+ edema BLE Neurologic: Alert and oriented X 3, normal motor, normal sensory, no focal deficits noted. [] Psychologic: Affect normal, judgement normal, mood normal. [] Current Patient Data: Labs: Laboratory Tests Test 03/14/21 13:45 03/14/21 15:12 White Blood Count 5.0 x10^3/uL (4.0-11.0) Red Blood Count 4.22 x10^6/uL (3.50-5.40) Hemoglobin 11.5 g/dL (12.0-15.5) L Hematocrit 35.7 % (36.0-47.0) L Mean Corpuscular Volume 85 fL (79-100) Mean Corpuscular Hemoglobin 27 pg (25-35) Mean Corpuscular Hemoglobin Concent 32 g/dL (31-37) Red Cell Distribution Width 14.7 % (11.5-14.5) H Platelet Count 210 x10^3/uL (140-400) Neutrophils (%) (Auto) 64 % (31-73) Lymphocytes (%) (Auto) 20 % (24-48) L Monocytes (%) (Auto) 13 % (0-9) H Eosinophils (%) (Auto) 3 % (0-3) Basophils (%) (Auto) 1 % (0-3) Neutrophils # (Auto) 3.2 x10^3/uL (1.8-7.7) Lymphocytes # (Auto) 1.0 x10^3/uL (1.0-4.8) Monocytes # (Auto) 0.6 x10^3/uL (0.0-1.1) Eosinophils # (Auto) 0.1 x10^3/uL (0.0-0.7) Basophils # (Auto) 0.0 x10^3/uL (0.0-0.2) D-Dimer (Nichol) 0.81 ug/mlFEU (0.00-0.50) H Sodium Level 143 mmol/L (136-145) Potassium Level 3.9 mmol/L (3.5-5.1) Chloride Level 104 mmol/L (98-107) Carbon Dioxide Level 30 mmol/L (21-32) Anion Gap 9 (6-14) Blood Urea Nitrogen 17 mg/dL (7-20) Creatinine 0.9 mg/dL (0.6-1.0) Estimated GFR (Cockcroft-Gault) 80.2 BUN/Creatinine Ratio 19 (6-20) Glucose Level 107 mg/dL (70-99) H Calcium Level 9.2 mg/dL (8.5-10.1) Magnesium Level 1.6 mg/dL (1.8-2.4) L Total Bilirubin 0.6 mg/dL (0.2-1.0) Aspartate Amino Transferase (AST) 21 U/L (15-37) Alanine Aminotransferase (ALT) 21 U/L (14-59) Alkaline Phosphatase 169 U/L (46-116) H Creatine Kinase 103 U/L (26-192) Creatine Kinase MB (Mass) 0.9 ng/mL (0.0-3.6) Creatine Kinase MB Relative Index 0.9 % (0-4) Troponin I Quantitative < 0.017 ng/mL (0.000-0.055) Total Protein 7.3 g/dL (6.4-8.2) Albumin 3.6 g/dL (3.4-5.0) Albumin/Globulin Ratio 1.0 (1.0-1.7) Lipase 217 U/L (73-393) Urine Collection Type Void Urine Color Yellow Urine Clarity Clear Urine pH 6.0 (<5.0-8.0) Urine Specific [place] 1.020 (1.000-1.030) Urine Protein Negative mg/dL (NEG-TRACE) Urine Glucose (UA) Negative mg/dL (NEG) Urine Ketones (Stick) Negative mg/dL (NEG) Urine Blood Small (NEG) Urine Nitrite Negative (NEG) Urine Bilirubin Negative (NEG) Urine Urobilinogen Dipstick 1.0 mg/dL (0.2 mg/dL) Urine Leukocyte Esterase Trace (NEG) Urine RBC 3-5 /HPF (0-2) Urine WBC Occ /HPF (0-4) Urine Squamous Epithelial Cells Many /LPF Urine Bacteria Few /HPF (0-FEW) Urine Mucus Slight /LPF Laboratory Tests 03/14/21 13:45 Laboratory Tests 03/14/21 13:45 Vital Signs: Vital Signs Date Time Temp Pulse Resp B/P (MAP) Pulse Ox O2 Delivery O2 Flow Rate FiO2 03/14/21 15:33 80 167/119 (135) 98 Nasal Cannula 2.0 03/14/21 13:11 98.1 12 98.1 EKG: EK-sinus rhythm with a prolonged IA and QT, PVCs present, no STEMI, read by Dr. Cabral[] Heart Score: C/O Chest Pain: Yes HEART Score for Chest Pain: HEART Score for Chest Pain Response (Comments) Value History Slighlty/Non-Suspicious 0 ECG Nonspecific Repolarizatio 1 Age >45 - < 65 1 Risk Factors >3 Risk Factors or Hx CAD 2 Troponin < Normal Limit 0 Total 4 Risk Factors: Risk Factors: DM, Current or recent (<one month) smoker, HTN, HLP, family history of CAD, obesity. Risk Scores: Score 0 - 3: 2.5% MACE over next 6 weeks - Discharge Home Score 4 - 6: 20.3% MACE over next 6 weeks - Admit for Clinical Observation Score 7 - 10: 72.7% MACE over next 6 weeks - Early Invasive Strategies Radiology/Procedures: Radiology/Procedures: PROCEDURE: CHEST AP ONLY Single AP view of the chest. Comparison: 02/16/2019. Indication: Chest pain Findings: New implanted loop recorder device is identified. The heart is mildly enlarged but stable. There is no pneumothorax or effusion. There is mild pulmonary vascular congestion. Impression: 1. Mild pulmonary vascular congestion cardiomegaly. Electronically signed by: Brando Flores MD (03/14/2021 1:39 PM) [id number] PROCEDURE: CT ANGIOGRAPHY CHEST Exam: CT of chest with contrast INDICATION: Chest pain, elevated d-dimer TECHNIQUE: Sequential axial images through the chest obtained following the administration of 100 mL of Isovue-370 IV contrast. Sagittal and coronal reformatted images were reconstructed from the axial data and reviewed. 3-D reformatted images were reconstructed from the axial data and reviewed. Exposure: One or more of the following in the visualized dose reduction techniques were utilized for this examination: 1. Automated exposure control 2. Adjustment of the MA and/or KV according to patient size 3. Use of iterative of reconstructive technique Comparisons: 01/16/2019 FINDINGS: Visualized portions of the thyroid are unremarkable. There are mild right hilar adenopathy. Prominent bilateral axillary adenopathy Heart is mildly enlarged. No pericardial effusion. Thoracic aorta has a normal course and caliber. Pulmonary artery is not enlarged. No pulmonary embolus identified within the main, lobar or segmental pulmonary arteries. Airways are patent. No consolidation or pneumothorax. No suspicious pulmonary nodules. No pleural effusion or thickening. Visualized upper abdomen is unremarkable. IMPRESSION: 1. No pulmonary embolus identified within the main, lobar or segmental pulm onary arteries. 2. Similar-appearing hilar and axillary lymph nodes which are prominent/mildly enlarged. This is nonspecific in etiology. Correlate with risk factors and consider continued follow-up imaging. [] Course & Med Decision Making: Course & Med Decision Making Pertinent Labs and Imaging studies reviewed. (See chart for details) [id number] with Dr. Samayoa who is the admitting physician, and care was assumed following discussion of patient. Will admit patient for chest pain and hypertensive urgency as observation status. Patient's vital signs stable. Patient remains afebrile, appears nontoxic, respirations even and unlabored. Patient will be admitted to the [facility] floor. Patient's case and plan of care also discussed with Dr. Cabral [] Dave Disclaimer: Dave Disclaimer: This electronic medical record was generated, in whole or in part, using a voice recognition dictation system. Departure Departure Impression: Primary Impression: Chest pain Additional Impression: Hypertensive urgency Disposition: ADMITTED INPATIENT Admitting Physician: ETELVINA (bigg) Condition: GOOD Referrals: PATRICIA AGUILAR MD (PCP) Problem Qualifiers Primary Impression: Chest pain Chest pain type: unspecified Qualified Codes: R07.9 - Chest pain, unspecified CARLOS CULP NOTE KEEPER March 14, 2021 18:27
[2021-03-14] MEDS ORDERED: METF500T16 PO (18:28)
[2021-03-14] MEDS ORDERED: MAGN400C PO (18:28)
[2021-03-14] MEDS ORDERED: FURO-68 PO (18:28)
[2021-03-14] MEDS ORDERED: ACETAMINOPHEN 325 MG TABLET. PO PRN (18:30)
[2021-03-14] MEDS ORDERED: SENNOSIDES 8.6 MG TABLET PO PRN (18:30)
[2021-03-14] MEDS: INSULIN LISPRO 300 UNITS/3 ML VIAL. SQ SCH (18:30)
[2021-03-14] MEDS ORDERED: ONDANSETRON PF 4 MG/2 ML VIAL. IVP PRN (18:30)
[2021-03-14] MEDS ORDERED: DEXTROSE 50% 25 GM / 50ML DISP.SYRIN. IV PRN (18:30)
[2021-03-14] MEDS ORDERED: oxyCODONE/APAP 5/325 1 TAB TABLET PO PRN (18:30)
[2021-03-14] MEDS ORDERED: MORPHINE SULFATE 2 MG/ML VIAL. IV PRN ×2 (18:30→18:45)
[2021-03-14] MEDS ORDERED: DOCUSATE SODIUM 100 MG CAPSULE. PO PRN (18:30)
[2021-03-14 19:05] VITALS: BP 150/67
[2021-03-14] MEDS: APIXABAN 5 MG TABLET. PO SCH (20:45)
[2021-03-14] MEDS: GABAPENTIN 400 MG CAPSULE. PO SCH (20:51)
[2021-03-14] MEDS ORDERED: SIMVASTATIN 20 MG TABLET PO SCH (21:00)
[2021-03-14] MEDS: FLECAINIDE ACETATE 50 MG TABLET. PO SCH (21:25)
[2021-03-14] MEDS: PANTOPRAZOLE 40 MG TABLET.DR. PO SCH (21:25)
[2021-03-14] MEDS ORDERED: FLECAINIDE ACETATE 50 MG TABLET. PO SCH (21:30)
[2021-03-14] MEDS ORDERED: ZOLPIDEM 5 MG TABLET. PO PRN (23:15)
[2021-03-14 23:20] VITALS: BP 157/72
[2021-03-15 03:15] VITALS: BP 139/63
[2021-03-15 04:54] LABS: BASO % 1 % (0-3); EOS # 0.2 x10^3/uL (0.0-0.7); EOS % 4 % (0-3); HEMATOCRIT 34.2 % (36.0-47.0); LYMPH # 0.9 x10^3/uL (1.0-4.8); LYMPH % 21 % (24-48); MEAN CORPUSCULAR HEMOGLOBIN 27 pg (25-35); MEAN CORPUSCULAR HGB CONC 32 g/dL (31-37); MEAN CORPUSCULAR VOLUME 85 fL (79-100); MONO # 0.6 x10^3/uL (0.0-1.1); MONO % 15 % (0-9); NEUT # 2.6 x10^3/uL (1.8-7.7); NEUT % 60 % (31-73); PLATELET COUNT 206 x10^3/uL (140-400); RED BLOOD COUNT 4.04 x10^6/uL (3.50-5.40); RED CELL DISTRIBUTION WIDTH 14.9 % (11.5-14.5); WHITE BLOOD COUNT 4.3 x10^3/uL (4.0-11.0)
[2021-03-15 05:15] LABS: CALCIUM 8.7 mg/dL (8.5-10.1); CREATININE 0.8 mg/dL (0.6-1.0); GFR 91.9; MAGNESIUM 1.5 mg/dL (1.8-2.4); PHOSPHORUS 4.2 mg/dL (2.6-4.7); POTASSIUM 3.9 mmol/L (3.5-5.1)
[2021-03-15 05:27] LABS: CHOLESTEROL/HDL RATIO 3.3
[2021-03-15 07:00] VITALS: BP 157/69
[2021-03-15] MEDS ORDERED: ASPIRIN ENTERIC COATED 81 MG TABLET.DR. PO SCH (08:00)
[2021-03-15] MEDS: INSULIN LISPRO 300 UNITS/3 ML VIAL. SQ SCH ×2 (08:00→12:00)
[2021-03-15] MEDS ORDERED: FUROSEMIDE 20 MG TABLET PO SCH (09:00)
[2021-03-15] MEDS: APIXABAN 5 MG TABLET. PO SCH (09:13)
[2021-03-15] MEDS: PANTOPRAZOLE 40 MG TABLET.DR. PO SCH (09:13)
[2021-03-15] MEDS: GABAPENTIN 400 MG CAPSULE. PO SCH ×2 (09:13→13:35)
[2021-03-15] MEDS: FLECAINIDE ACETATE 50 MG TABLET. PO SCH (09:19)
--- NOTE | 2021-03-15 10:26 | CONS ---
PULMONARY CONSULTATION ATTENDING PHYSICIAN: Dr. Samayoa. REASON FOR CONSULTATION: Pulmonary hypertension and chest pain. HISTORY OF PRESENT ILLNESS: The patient is a 50-year-old morbidly obese female with a BMI of 59.6. She has a history of pulmonary hypertension. [facility] and has been on treprostinil inhaler. She has a history of CHF, atrial fibrillation, on Eliquis. She also had a recent loop recorder placement. The patient has history of sleep apnea as well and has been on CPAP. She was brought into the hospital after she was complaining of chest pain, which started on the left side and went to the right side. The patient states the pain actually started since she has a loop recorder placed. No syncope. No cough, no fever, no chills. She sees a peel oven tender at [facility]. CTA chest was performed and there was no evidence of pulmonary embolism. The patient has unchanged mild hilar and axillary lymph nodes. The patient normally is on home oxygen at 2 liters during the day and 2.5 liters with her CPAP at nighttime. She has mild lower extremity edema. PAST MEDICAL HISTORY: Significant for history of systemic hypertension, history of atrial fibrillation, on Eliquis; history of dyslipidemia, CHF, history of pulmonary hypertension, currently on treprostinil inhaler. History of questionable sarcoidosis, never biopsy proven. History of morbid obesity, TEO. Urinary incontinence and diabetes. PAST SURGICAL HISTORY: . ALLERGIES: NITRITES. MEDICATIONS: Reviewed as listed in the [facility]AD. REVIEW OF SYSTEMS: A 12-point system obtained. Pertinent positives discussed in my presence illness, otherwise noncontributory. All systems that were negative were reviewed as well. SOCIAL HISTORY: Nonsmoker. FAMILY HISTORY: Noncontributory to lungs. PHYSICAL EXAMINATION: VITAL SIGNS: Stable. Pulse ox 94% on 2 liters. NECK: Supple. LUNGS: Clear. CARDIOVASCULAR: With a regular rate. ABDOMEN: Soft, obese. EXTREMITIES: With 1+ pitting edema. LABORATORY DATA: Reviewed. White cell count 4.3, hemoglobin 11.0 and platelets 206. BUN 17 and creatinine 0.8. IMPRESSION: 1. Chest pain with no evidence of pulmonary embolism. She states the pain has been present since she had a loop recorder placed. Etiology of chest pain appears to be nonspecific. 2. Hypertensive urgency, present on admission. Blood pressure better. 3. History of pulmonary hypertension, being followed at the pulmonary clinic at . She is on pulmonary vasodilator treprostinil inhaler. 3. Questionable history of sarcoidosis. She was seen by Dr. Orozco once, but she never had any formal biopsy. She has never been on steroids. Chest CT shows some nonspecific axillary and hilar lymphadenopathy, not pathological. 4. Underlying morbid obesity and obstructive sleep apnea, on oxygen and CPAP at night. She also uses oxygen during the day at 2 liters. 5. No significant tobacco history. RECOMMENDATIONS: 1. The patient's pulmonary status is stable. She is at her baseline oxygen level. No evidence of thromboembolic disease. 2. From a pulmonary standpoint, she could be discharged home. 3. Follow Cardiology recommendation. 4. Post-discharge, she is instructed to follow up with her sanitation officer [facility]. 5. Follow up with her peel oven tender at [facility] as well. 6. Weight loss is advised. 7. Home CPAP at nighttime. 8. Anticoagulated with Eliquis for atrial fibrillation per cardiology. Discussed with RN. No further recommendations to add. JIMMIE/OLIVIA/ANNA DR: JIMMIE/con TID: [id number]
--- NOTE | 2021-03-15 10:26 | PDOC ---
PROGRESS NOTES Date of Service: DATE: 03/15/21 TIME: 10:26 Chief Complaint Chief Complaint Impression: 1. Mild pulmonary vascular congestion cardiomegaly. CTA CHEST IMPRESSION: 1. No pulmonary embolus identified within the main, lobar or segmental pulmonary arteries. 2. Similar-appearing hilar and axillary lymph nodes which are prominent/mildly enlarged. This is nonspecific in etiology. Correlate with risk factors and consider continued follow-up imaging. Assessment/Plan Assessment/Plan Chest pain concerning for unstable angina/NSTEMI Hypertensive urgency Elevated D-dimer concerning for PE, ruled out with CT of the chest Elevated alkaline phosphatase likely due to increased bone turnover Hypomagnesemia History of diabetes mellitus type 2 History of pulmonary hypertension currently on treprostinil History of cirrhosis History of dyslipidemia History of atrial fibrillation currently on Eliquis Loop recorder implanted OHS/TEO Morbid obesity Admit to medicine for observation Obtain records of most recent visit and echocardiogram Labetalol IV as needed as needed for systolic blood pressure greater than 180 Cardiology consult Heart score 5 Troponin negative x1 Continue aspirin Cardiology consulted for predischarge stress testing or left heart cath Continue nitroglycerin as needed for pain Continue beta-padma if blood pressures allow Continue high intensity statins IV morphine as needed Consider Lovenox Maintain O2 sats between 88 to 95% Trend troponins Continue telemetry monitoring Monitor for electrolyte abnormalities Avoid NSAIDs Pulmonology consult for pulmonary hypertension management Eliquis for DVT prophylaxis Protonix GI prophylaxis ADA diet Full code Discussed with RN and SW Disposition inpatient management as above Surrogate decision maker is Otilio Cruz Post-discharge, she is instructed to follow up with her behavior management specialist at [facility]. Follow up with her flame cutting machine operator at [facility] as well. Weight loss is advised. Home CPAP at nighttime. D/C PLANNING 37 MIN Justifications for Admission Justifications for Admission Other Justification History of Present Illness History of Present Illness Chief Complaint: Chief Complain: Chest pain History of Present Illness: HPI: 50-year-old female with multiple morbidities pertinent for pulmonary hypertension currently on treprostinil inhaler, CHF, atrial fibrillation on Eliquis, history of loop recorder placement, morbid obesity, TEO who comes in due to chest pain for the last 3 days. She describes her chest pain as sharp left substernal in location and travels to her right shoulder. This will last for about 5 seconds and then her next episode will be about 12 hours later at night. This has been occurring for the last 3 days. She says she is very sensitive with her body and she knows when something is wrong. She describes the pain as 8 out of 10. Denies any nausea vomiting, syncope, palpitations, shortness of breath, pedal edema, abdominal pain, diarrhea or dysuria. Of note, patient does follow with Dr. Sahni and Dr. Navarro and she believes that this is where her loop recorder was placed. She still has a loop recorder in place and has not sent in the data for it yet. Past Medical/Surgical History: PMH/PSH: Past Medical History Cardiovascular: HTN, atrial fibrillation on Eliquis, dyslipidemia, CHF Pulmonary: Pulmonary hypertension currently on treprostinil inhaler CENTRAL NERVOUS SYSTEM: Neuropathy, GI: GERD Heme/Onc: No pertinent hx Hepatobiliary: No pertinent hx Psych: Anxiety, Bipolar Musculoskeletal: Osteoarthritis Rheumatologic: No pertinent hx Infectious disease: No pertinent hx Renal/: Urinary Incontinence, Other Endocrine: Diabetes, morbid obesity Past Surgical History Past Surgical History: Allergies: Allergies: Uncoded Allergies: nitrites (Allergy, Unknown, Unknown, 03/14/21) "I'm not sure. [facility] just told me to tell everyone I had an allergic reaction to this." Family History: Family History: Reviewed with no relevant findings Social History: Social History: Denies alcohol, tobacco or drug abuse Current Medications: Current Medications Current Medications Iohexol (Omnipaque 350 Mg/ml) 100 ml 1X ONCE IV Last administered on 03/14/21at 15:37; Start 03/14/21 at 15:15; Stop 03/14/21 at 15:16; Status DC Info (CONTRAST GIVEN -- Rx MONITORING) 1 each PRN DAILY PRN [facility] SEE COMMENTS; Start 03/14/21 at 15:15; Stop 03/16/21 at 15:14 Active Scripts Active Zithromax (Azithromycin) 250 Mg Tablet 1 Pkg PO UD Medrol (Methylprednisolone) 4 Mg Tab.ds.pk 1 Pkg PO UD Hydrochlorothiazide Tablet (Hydrochlorothiazide) 25 Mg Tablet 25 Mg PO DAILY 30 Days [Pantoprazole] 40 MG Tablet.dr 40 Mg PO DAILYAC MDD 1 Mag-Al Plus Xs Suspension (Mag Hydrox/Al Hydrox/Simeth) 30 Ml Oral.susp 30 Ml PO PRN Q2HR PRN MDD 1 Diltiazem 24HR Cd (Diltiazem Hcl) 180 Mg Cap.er.24h 180 Mg PO DAILY MDD 1 [place] 5-325 Tablet (Acetaminophen/Hydrocodone Bitart) 1 Each Tablet 1-2 Each PO PRN Q6HRS PRN as needed for pain Reported Tyvaso Inhalation Starter Kit (Treprostinil/Nebulizer/Accesor) 1.74 Mg/2.9 Ml Ampul.neb INH Q4HRS Losartan Potassium 100 Mg Tablet 1 Tab PO DAILY Flecainide Acetate 100 Mg Tablet 1 Tab PO BID Omeprazole 40 Mg Capsule.dr 40 Mg PO BID Tadalafil 20 Mg Tablet 1 Tab PO QODAY Gabapentin 400 Mg Capsule 400 Cap PO TID Eliquis (Apixaban) 5 Mg Tablet 5 Mg PO BID Medroxyprogesterone Acetate 10 Mg Tablet 10 Mg PO DAILY 10 Days Vitamin D (Cholecalciferol (Vitamin D3)) 50,000 Unit Capsule 50,000 Unit PO WEEKLY Triamcinolone Acetonide 80 Gm Oint...g. 80 Gm TP Trazodone Hcl 50 Mg Tablet 50 Mg PO HS Proair Hfa Inhaler (Albuterol Sulfate) 8.5 Gm Hfa.aer.ad 1 Puff INH PRN Q6HRS PRN Losartan Potassium (Losartan Potassium) 25 Mg Tablet 25 Mg PO DAILY Hydroxyzine Hcl 10 Mg/5 Ml Syrup 10 Mg PO TID Venlafaxine Hcl Er (Venlafaxine Hcl) 150 Mg Tab.er.24 150 Mg PO DAILY Metformin Hcl 500 Mg Tablet 1,000 Mg PO BIDBFRMEAL Simvastatin 20 Mg Tablet 20 Mg PO HS ROS: Review of Systems Review of System REVIEW OF SYSTEMS: GENERAL: Denies weakness SKIN: No bruising, hair changes or rashes. EYES: No blurred, double or loss of vision. NOSE AND THROAT: No history of nosebleeds, hoarseness or sore throat. HEART: No history of palpitations, chest pain or shortness of breath on exertion. LUNGS: Denies cough, hemoptysis, wheezing or shortness of breath. GASTROINTESTINAL: Denies changes in appetite, nausea, vomiting, diarrhea or constipation. GENITOURINARY: No history of frequency, urgency, hesitancy or nocturia. NEUROLOGIC: Denies history of numbness, tingling, or tremor. PSYCHIATRIC: No history of panic, anxiety or depression. ENDOCRINE: No history of heat or cold intolerance, polyuria or polydipsia. EXTREMITIES: Denies joint pain, pain on walking or stiffness. Vitals Vitals Vital Signs Date Time Temp Pulse Resp B/P (MAP) Pulse Ox O2 Delivery O2 Flow Rate FiO2 03/15/21 09:19 75 157/69 03/15/21 08:00 Nasal Cannula 2.0 03/15/21 07:00 97.4 28 94 97.4 Physical Exam Physical Exam Physcial Exam: GEN: No apparent distress. Alert and oriented HEENT: Normal cephalic, atraumatic, external auditory canals are patent EYES: Extraocular muscles are intact, pupil are equally round and reactive to light and accommodation MUSCULOSKELETAL: Well developed , well nourished, good range of motion ENDOCRINE: No thyromegaly was palpated LYMPHATICS: No cervical chain or axillary nodes were noted HEMATOPOIETIC: No bruising NECK: Supple, no JVD, no thyromegaly was noted LUNGS: Clear to auscultation in all lung tron[place] without rhonchi or wheezing HEART: RRR, S!, S2 present. Peripheral pulses intact, no obvious murmurs noted ABDOMEN: Soft, nontender. Positive bowel sounds, no organomegaly, normal bowel sounds EXTREMITIES: Without clubbing, cyanosis, or edema. Pedal pulses intact. Negative Homans sign NEUROLOGIC: Normal speech and tone. A&O x 3, moves all extremities, no obvious focal deficits PSYCHIATRIC: Normal affect, normal mood. Stable SKIN: No ulcerations or rashes, good skin turgor, no jaundice VASCULAR: Good capillary refill, neurovascular bundle appears to be intact General: Alert, Oriented X3, Cooperative, No acute distress Lungs: Clear Abdomen: Normal bowel sounds, Soft Extremities: No cyanosis Labs LABS Laboratory Tests Test 03/14/21 13:45 03/14/21 15:12 03/14/21 19:00 03/14/21 21:15 White Blood Count 5.0 x10^3/uL (4.0-11.0) Red Blood Count 4.22 x10^6/uL (3.50-5.40) Hemoglobin 11.5 g/dL (12.0-15.5) Hematocrit 35.7 % (36.0-47.0) Mean Corpuscular Volume 85 fL (79-100) Mean Corpuscular Hemoglobin 27 pg (25-35) Mean Corpuscular Hemoglobin Concent 32 g/dL (31-37) Red Cell Distribution Width 14.7 % (11.5-14.5) Platelet Count 210 x10^3/uL (140-400) Neutrophils (%) (Auto) 64 % (31-73) Lymphocytes (%) (Auto) 20 % (24-48) Monocytes (%) (Auto) 13 % (0-9) Eosinophils (%) (Auto) 3 % (0-3) Basophils (%) (Auto) 1 % (0-3) Neutrophils # (Auto) 3.2 x10^3/uL (1.8-7.7) Lymphocytes # (Auto) 1.0 x10^3/uL (1.0-4.8) Monocytes # (Auto) 0.6 x10^3/uL (0.0-1.1) Eosinophils # (Auto) 0.1 x10^3/uL (0.0-0.7) Basophils # (Auto) 0.0 x10^3/uL (0.0-0.2) D-Dimer (Nichol) 0.81 ug/mlFEU (0.00-0.50) Sodium Level 143 mmol/L (136-145) Potassium Level 3.9 mmol/L (3.5-5.1) Chloride Level 104 mmol/L (98-107) Carbon Dioxide Level 30 mmol/L (21-32) Anion Gap 9 (6-14) Blood Urea Nitrogen 17 mg/dL (7-20) Creatinine 0.9 mg/dL (0.6-1.0) Estimated GFR (Cockcroft-Gault) 80.2 BUN/Creatinine Ratio 19 (6-20) Glucose Level 107 mg/dL (70-99) Calcium Level 9.2 mg/dL (8.5-10.1) Magnesium Level 1.6 mg/dL (1.8-2.4) Total Bilirubin 0.6 mg/dL (0.2-1.0) Aspartate Amino Transf (AST/SGOT) 21 U/L (15-37) Alanine Aminotransferase (ALT/SGPT) 21 U/L (14-59) Alkaline Phosphatase 169 U/L (46-116) Creatine Kinase 103 U/L (26-192) Creatine Kinase MB (Mass) 0.9 ng/mL (0.0-3.6) Creatine Kinase MB Relative Index 0.9 % (0-4) Troponin I Quantitative < 0.017 ng/mL (0.000-0.055) < 0.017 ng/mL (0.000-0.055) Total Protein 7.3 g/dL (6.4-8.2) Albumin 3.6 g/dL (3.4-5.0) Albumin/Globulin Ratio 1.0 (1.0-1.7) Lipase 217 U/L (73-393) Urine Collection Type Void Urine Color Yellow Urine Clarity Clear Urine pH 6.0 (<5.0-8.0) Urine Specific [place] 1.020 (1.000-1.030) Urine Protein Negative mg/dL (NEG-TRACE) Urine Glucose (UA) Negative mg/dL (NEG) Urine Ketones (Stick) Negative mg/dL (NEG) Urine Blood Small (NEG) Urine Nitrite Negative (NEG) Urine Bilirubin Negative (NEG) Urine Urobilinogen Dipstick 1.0 mg/dL (0.2 mg/dL) Urine Leukocyte Esterase Trace (NEG) Urine RBC 3-5 /HPF (0-2) Urine WBC Occ /HPF (0-4) Urine Squamous Epithelial Cells Many /LPF Urine Bacteria Few /HPF (0-FEW) Urine Mucus Slight /LPF RD-Irx-I-Type Natriuretic Peptide 778 pg/mL (0-124) Glucose (Fingerstick) 99 mg/dL (70-99) Test 03/15/21 04:00 03/15/21 08:08 White Blood Count 4.3 x10^3/uL (4.0-11.0) Red Blood Count 4.04 x10^6/uL (3.50-5.40) Hemoglobin 11.0 g/dL (12.0-15.5) Hematocrit 34.2 % (36.0-47.0) Mean Corpuscular Volume 85 fL (79-100) Mean Corpuscular Hemoglobin 27 pg (25-35) Mean Corpuscular Hemoglobin Concent 32 g/dL (31-37) Red Cell Distribution Width 14.9 % (11.5-14.5) Platelet Count 206 x10^3/uL (140-400) Neutrophils (%) (Auto) 60 % (31-73) Lymphocytes (%) (Auto) 21 % (24-48) Monocytes (%) (Auto) 15 % (0-9) Eosinophils (%) (Auto) 4 % (0-3) Basophils (%) (Auto) 1 % (0-3) Neutrophils # (Auto) 2.6 x10^3/uL (1.8-7.7) Lymphocytes # (Auto) 0.9 x10^3/uL (1.0-4.8) Monocytes # (Auto) 0.6 x10^3/uL (0.0-1.1) Eosinophils # (Auto) 0.2 x10^3/uL (0.0-0.7) Basophils # (Auto) 0.0 x10^3/uL (0.0-0.2) Sodium Level 144 mmol/L (136-145) Potassium Level 3.9 mmol/L (3.5-5.1) Chloride Level 105 mmol/L (98-107) Carbon Dioxide Level 31 mmol/L (21-32) Anion Gap 8 (6-14) Blood Urea Nitrogen 17 mg/dL (7-20) Creatinine 0.8 mg/dL (0.6-1.0) Estimated GFR (Cockcroft-Gault) 91.9 Glucose Level 103 mg/dL (70-99) Calcium Level 8.7 mg/dL (8.5-10.1) Phosphorus Level 4.2 mg/dL (2.6-4.7) Magnesium Level 1.5 mg/dL (1.8-2.4) Troponin I Quantitative < 0.017 ng/mL (0.000-0.055) Triglycerides Level 73 mg/dL (0-150) Cholesterol Level 115 mg/dL (0-200) LDL Cholesterol, Calculated 65 mg/dL (0-100) VLDL Cholesterol, Calculated 15 mg/dL (0-40) Non-HDL Cholesterol Calculated 80 mg/dL (0-129) HDL Cholesterol 35 mg/dL (40-60) Cholesterol/HDL Ratio 3.3 Glucose (Fingerstick) 102 mg/dL (70-99) Assessment and Plan Assessmemt and Plan Problems Medical Problems: (1) Chest pain Status: Acute (2) Hypertensive urgency Status: Acute Comment Review of Relevant I have reviewed the following items albert (where applicable) has been applied. Labs Laboratory Tests Test 03/14/21 13:45 03/14/21 15:12 03/14/21 19:00 03/14/21 21:15 White Blood Count 5.0 x10^3/uL (4.0-11.0) Red Blood Count 4.22 x10^6/uL (3.50-5.40) Hemoglobin 11.5 g/dL (12.0-15.5) Hematocrit 35.7 % (36.0-47.0) Mean Corpuscular Volume 85 fL (79-100) Mean Corpuscular Hemoglobin 27 pg (25-35) Mean Corpuscular Hemoglobin Concent 32 g/dL (31-37) Red Cell Distribution Width 14.7 % (11.5-14.5) Platelet Count 210 x10^3/uL (140-400) Neutrophils (%) (Auto) 64 % (31-73) Lymphocytes (%) (Auto) 20 % (24-48) Monocytes (%) (Auto) 13 % (0-9) Eosinophils (%) (Auto) 3 % (0-3) Basophils (%) (Auto) 1 % (0-3) Neutrophils # (Auto) 3.2 x10^3/uL (1.8-7.7) Lymphocytes # (Auto) 1.0 x10^3/uL (1.0-4.8) Monocytes # (Auto) 0.6 x10^3/uL (0.0-1.1) Eosinophils # (Auto) 0.1 x10^3/uL (0.0-0.7) Basophils # (Auto) 0.0 x10^3/uL (0.0-0.2) D-Dimer (Nichol) 0.81 ug/mlFEU (0.00-0.50) Sodium Level 143 mmol/L (136-145) Potassium Level 3.9 mmol/L (3.5-5.1) Chloride Level 104 mmol/L (98-107) Carbon Dioxide Level 30 mmol/L (21-32) Anion Gap 9 (6-14) Blood Urea Nitrogen 17 mg/dL (7-20) Creatinine 0.9 mg/dL (0.6-1.0) Estimated GFR (Cockcroft-Gault) 80.2 BUN/Creatinine Ratio 19 (6-20) Glucose Level 107 mg/dL (70-99) Calcium Level 9.2 mg/dL (8.5-10.1) Magnesium Level 1.6 mg/dL (1.8-2.4) Total Bilirubin 0.6 mg/dL (0.2-1.0) Aspartate Amino Transf (AST/SGOT) 21 U/L (15-37) Alanine Aminotransferase (ALT/SGPT) 21 U/L (14-59) Alkaline Phosphatase 169 U/L (46-116) Creatine Kinase 103 U/L (26-192) Creatine Kinase MB (Mass) 0.9 ng/mL (0.0-3.6) Creatine Kinase MB Relative Index 0.9 % (0-4) Troponin I Quantitative < 0.017 ng/mL (0.000-0.055) < 0.017 ng/mL (0.000-0.055) Total Protein 7.3 g/dL (6.4-8.2) Albumin 3.6 g/dL (3.4-5.0) Albumin/Globulin Ratio 1.0 (1.0-1.7) Lipase 217 U/L (73-393) Urine Collection Type Void Urine Color Yellow Urine Clarity Clear Urine pH 6.0 (<5.0-8.0) Urine Specific [place] 1.020 (1.000-1.030) Urine Protein Negative mg/dL (NEG-TRACE) Urine Glucose (UA) Negative mg/dL (NEG) Urine Ketones (Stick) Negative mg/dL (NEG) Urine Blood Small (NEG) Urine Nitrite Negative (NEG) Urine Bilirubin Negative (NEG) Urine Urobilinogen Dipstick 1.0 mg/dL (0.2 mg/dL) Urine Leukocyte Esterase Trace (NEG) Urine RBC 3-5 /HPF (0-2) Urine WBC Occ /HPF (0-4) Urine Squamous Epithelial Cells Many /LPF Urine Bacteria Few /HPF (0-FEW) Urine Mucus Slight /LPF KS-Wjr-I-Type Natriuretic Peptide 778 pg/mL (0-124) Glucose (Fingerstick) 99 mg/dL (70-99) Test 03/15/21 04:00 03/15/21 08:08 White Blood Count 4.3 x10^3/uL (4.0-11.0) Red Blood Count 4.04 x10^6/uL (3.50-5.40) Hemoglobin 11.0 g/dL (12.0-15.5) Hematocrit 34.2 % (36.0-47.0) Mean Corpuscular Volume 85 fL (79-100) Mean Corpuscular Hemoglobin 27 pg (25-35) Mean Corpuscular Hemoglobin Concent 32 g/dL (31-37) Red Cell Distribution Width 14.9 % (11.5-14.5) Platelet Count 206 x10^3/uL (140-400) Neutrophils (%) (Auto) 60 % (31-73) Lymphocytes (%) (Auto) 21 % (24-48) Monocytes (%) (Auto) 15 % (0-9) Eosinophils (%) (Auto) 4 % (0-3) Basophils (%) (Auto) 1 % (0-3) Neutrophils # (Auto) 2.6 x10^3/uL (1.8-7.7) Lymphocytes # (Auto) 0.9 x10^3/uL (1.0-4.8) Monocytes # (Auto) 0.6 x10^3/uL (0.0-1.1) Eosinophils # (Auto) 0.2 x10^3/uL (0.0-0.7) Basophils # (Auto) 0.0 x10^3/uL (0.0-0.2) Sodium Level 144 mmol/L (136-145) Potassium Level 3.9 mmol/L (3.5-5.1) Chloride Level 105 mmol/L (98-107) Carbon Dioxide Level 31 mmol/L (21-32) Anion Gap 8 (6-14) Blood Urea Nitrogen 17 mg/dL (7-20) Creatinine 0.8 mg/dL (0.6-1.0) Estimated GFR (Cockcroft-Gault) 91.9 Glucose Level 103 mg/dL (70-99) Calcium Level 8.7 mg/dL (8.5-10.1) Phosphorus Level 4.2 mg/dL (2.6-4.7) Magnesium Level 1.5 mg/dL (1.8-2.4) Troponin I Quantitative < 0.017 ng/mL (0.000-0.055) Triglycerides Level 73 mg/dL (0-150) Cholesterol Level 115 mg/dL (0-200) LDL Cholesterol, Calculated 65 mg/dL (0-100) VLDL Cholesterol, Calculated 15 mg/dL (0-40) Non-HDL Cholesterol Calculated 80 mg/dL (0-129) HDL Cholesterol 35 mg/dL (40-60) Cholesterol/HDL Ratio 3.3 Glucose (Fingerstick) 102 mg/dL (70-99) Laboratory Tests Test 03/14/21 13:45 03/14/21 15:12 03/14/21 19:00 03/14/21 21:15 White Blood Count 5.0 x10^3/uL (4.0-11.0) Red Blood Count 4.22 x10^6/uL (3.50-5.40) Hemoglobin 11.5 g/dL (12.0-15.5) Hematocrit 35.7 % (36.0-47.0) Mean Corpuscular Volume 85 fL (79-100) Mean Corpuscular Hemoglobin 27 pg (25-35) Mean Corpuscular Hemoglobin Concent 32 g/dL (31-37) Red Cell Distribution Width 14.7 % (11.5-14.5) Platelet Count 210 x10^3/uL (140-400) Neutrophils (%) (Auto) 64 % (31-73) Lymphocytes (%) (Auto) 20 % (24-48) Monocytes (%) (Auto) 13 % (0-9) Eosinophils (%) (Auto) 3 % (0-3) Basophils (%) (Auto) 1 % (0-3) Neutrophils # (Auto) 3.2 x10^3/uL (1.8-7.7) Lymphocytes # (Auto) 1.0 x10^3/uL (1.0-4.8) Monocytes # (Auto) 0.6 x10^3/uL (0.0-1.1) Eosinophils # (Auto) 0.1 x10^3/uL (0.0-0.7) Basophils # (Auto) 0.0 x10^3/uL (0.0-0.2) D-Dimer (Nichol) 0.81 ug/mlFEU (0.00-0.50) Sodium Level 143 mmol/L (136-145) Potassium Level 3.9 mmol/L (3.5-5.1) Chloride Level 104 mmol/L (98-107) Carbon Dioxide Level 30 mmol/L (21-32) Anion Gap 9 (6-14) Blood Urea Nitrogen 17 mg/dL (7-20) Creatinine 0.9 mg/dL (0.6-1.0) Estimated GFR (Cockcroft-Gault) 80.2 BUN/Creatinine Ratio 19 (6-20) Glucose Level 107 mg/dL (70-99) Calcium Level 9.2 mg/dL (8.5-10.1) Magnesium Level 1.6 mg/dL (1.8-2.4) Total Bilirubin 0.6 mg/dL (0.2-1.0) Aspartate Amino Transf (AST/SGOT) 21 U/L (15-37) Alanine Aminotransferase (ALT/SGPT) 21 U/L (14-59) Alkaline Phosphatase 169 U/L (46-116) Creatine Kinase 103 U/L (26-192) Creatine Kinase MB (Mass) 0.9 ng/mL (0.0-3.6) Creatine Kinase MB Relative Index 0.9 % (0-4) Troponin I Quantitative < 0.017 ng/mL (0.000-0.055) < 0.017 ng/mL (0.000-0.055) Total Protein 7.3 g/dL (6.4-8.2) Albumin 3.6 g/dL (3.4-5.0) Albumin/Globulin Ratio 1.0 (1.0-1.7) Lipase 217 U/L (73-393) Urine Collection Type Void Urine Color Yellow Urine Clarity Clear Urine pH 6.0 (<5.0-8.0) Urine Specific [place] 1.020 (1.000-1.030) Urine Protein Negative mg/dL (NEG-TRACE) Urine Glucose (UA) Negative mg/dL (NEG) Urine Ketones (Stick) Negative mg/dL (NEG) Urine Blood Small (NEG) Urine Nitrite Negative (NEG) Urine Bilirubin Negative (NEG) Urine Urobilinogen Dipstick 1.0 mg/dL (0.2 mg/dL) Urine Leukocyte Esterase Trace (NEG) Urine RBC 3-5 /HPF (0-2) Urine WBC Occ /HPF (0-4) Urine Squamous Epithelial Cells Many /LPF Urine Bacteria Few /HPF (0-FEW) Urine Mucus Slight /LPF WO-Gea-E-Type Natriuretic Peptide 778 pg/mL (0-124) Glucose (Fingerstick) 99 mg/dL (70-99) Test 03/15/21 04:00 03/15/21 08:08 White Blood Count 4.3 x10^3/uL (4.0-11.0) Red Blood Count 4.04 x10^6/uL (3.50-5.40) Hemoglobin 11.0 g/dL (12.0-15.5) Hematocrit 34.2 % (36.0-47.0) Mean Corpuscular Volume 85 fL (79-100) Mean Corpuscular Hemoglobin 27 pg (25-35) Mean Corpuscular Hemoglobin Concent 32 g/dL (31-37) Red Cell Distribution Width 14.9 % (11.5-14.5) Platelet Count 206 x10^3/uL (140-400) Neutrophils (%) (Auto) 60 % (31-73) Lymphocytes (%) (Auto) 21 % (24-48) Monocytes (%) (Auto) 15 % (0-9) Eosinophils (%) (Auto) 4 % (0-3) Basophils (%) (Auto) 1 % (0-3) Neutrophils # (Auto) 2.6 x10^3/uL (1.8-7.7) Lymphocytes # (Auto) 0.9 x10^3/uL (1.0-4.8) Monocytes # (Auto) 0.6 x10^3/uL (0.0-1.1) Eosinophils # (Auto) 0.2 x10^3/uL (0.0-0.7) Basophils # (Auto) 0.0 x10^3/uL (0.0-0.2) Sodium Level 144 mmol/L (136-145) Potassium Level 3.9 mmol/L (3.5-5.1) Chloride Level 105 mmol/L (98-107) Carbon Dioxide Level 31 mmol/L (21-32) Anion Gap 8 (6-14) Blood Urea Nitrogen 17 mg/dL (7-20) Creatinine 0.8 mg/dL (0.6-1.0) Estimated GFR (Cockcroft-Gault) 91.9 Glucose Level 103 mg/dL (70-99) Calcium Level 8.7 mg/dL (8.5-10.1) Phosphorus Level 4.2 mg/dL (2.6-4.7) Magnesium Level 1.5 mg/dL (1.8-2.4) Troponin I Quantitative < 0.017 ng/mL (0.000-0.055) Triglycerides Level 73 mg/dL (0-150) Cholesterol Level 115 mg/dL (0-200) LDL Cholesterol, Calculated 65 mg/dL (0-100) VLDL Cholesterol, Calculated 15 mg/dL (0-40) Non-HDL Cholesterol Calculated 80 mg/dL (0-129) HDL Cholesterol 35 mg/dL (40-60) Cholesterol/HDL Ratio 3.3 Glucose (Fingerstick) 102 mg/dL (70-99) Medications Current Medications Iohexol (Omnipaque 350 Mg/ml) 100 ml 1X ONCE IV Last administered on 03/14/21at 15:37; Start 03/14/21 at 15:15; Stop 03/14/21 at 15:16; Status DC Info (CONTRAST GIVEN -- Rx MONITORING) 1 each PRN DAILY PRN MC SEE COMMENTS; Start 03/14/21 at 15:15; Stop 03/16/21 at 15:14 Sennosides (Senna) 17.2 mg PRN BID PRN PO CONSTIPATION; Start 03/14/21 at 18:30 Docusate Sodium (Colace) 100 mg PRN DAILY PRN PO HARD STOOLS; Start 03/14/21 at 18:30 Ondansetron HCl (Zofran) 4 mg PRN Q6HRS PRN IVP NAUSEA/VOMITING; Start 03/14/21 at 18:30 Insulin Human Lispro (HumaLOG) 0-7 UNITS TIDWMEALS SQ ; Start 03/14/21 at 18:30 Dextrose (Dextrose 50%-Water Syringe) 12.5 gm PRN Q15MIN PRN IV SEE COMMENTS; Start 03/14/21 at 18:30 Acetaminophen (Tylenol) 650 mg PRN Q4HRS PRN PO TEMP OVER 100.4F OR MILD PAIN; Start 03/14/21 at 18:30 Oxycodone/ Acetaminophen (Percocet 5/325) 1 tab PRN Q4HRS PRN PO MILD PAIN, 1ST CHOICE; Start 03/14/21 at 18:30 Morphine Sulfate (Morphine Sulfate) 1 mg PRN Q1HR PRN IV PAIN; Start 03/14/21 at 18:30 Morphine Sulfate (Morphine Sulfate) 2 mg PRN Q2HR PRN IV SEVERE PAIN 7-10; Start 03/14/21 at 18:45 Aspirin (Ecotrin) 81 mg [id number] PO Last administered on 03/15/21at 09:13; Start 03/15/21 at 08:00 Apixaban (Eliquis) 5 mg BID PO Last administered on 03/15/21at 09:13; Start 03/14/21 at 21:00 Furosemide (Lasix) 60 mg BID94 PO ; Start 03/15/21 at 09:00 Gabapentin (Neurontin) 400 mg TID PO Last administered on 03/15/21at 09:13; Start 03/14/21 at 21:00 Simvastatin (Zocor) 20 mg HS PO Last administered on 03/14/21at 20:45; Start 03/14/21 at 21:00 Pantoprazole Sodium (Protonix) 40 mg BIDAC PO Last administered on 03/15/21at 09:13; Start 03/14/21 at 21:30 Flecainide Acetate (Tambocor) 50 mg BID PO ; Start 03/14/21 at 21:30; Stop 03/14/21 at 21:15; Status DC Flecainide Acetate (Tambocor) 100 mg BID PO Last administered on 03/15/21at 09:19; Start 03/14/21 at 21:30 Zolpidem Tartrate (Ambien) 5 mg PRN QHS PRN PO INSOMNIA; Start 03/14/21 at 23:15 Magnesium Oxide (Magnesium Oxide) 800 mg 1X ONCE PO ; Start 03/15/21 at 10:30; Stop 03/15/21 at 10:31 Magnesium Oxide (Magnesium Oxide) 400 mg 1X ONCE PO ; Start 03/15/21 at 13:00; Stop 03/15/21 at 13:01 Active Scripts Active [place] 5-325 Tablet (Acetaminophen/Hydrocodone Bitart) 1 Each Tablet 1-2 Each PO PRN Q6HRS PRN as needed for pain Reported Lasix (Furosemide) 40 Mg Tablet 60 Mg PO BID Magnesium (Magnesium Oxide) 400 Mg Capsule 400 Mg PO BID Metformin Hcl 500 Mg Tablet 500 Mg PO BIDWMEALS Tyvaso Inhalation Starter Kit (Treprostinil/Nebulizer/Accesor) 1.74 Mg/2.9 Ml Ampul.neb INH Q4HRS Losartan Potassium 100 Mg Tablet 1 Tab PO DAILY Flecainide Acetate 100 Mg Tablet 1 Tab PO BID Omeprazole 40 Mg Capsule.dr 40 Mg PO BID Tadalafil 20 Mg Tablet 1 Tab PO QODAY Gabapentin 400 Mg Capsule 400 Mg PO TID Eliquis (Apixaban) 5 Mg Tablet 5 Mg PO BID Vitamin D (Cholecalciferol (Vitamin D3)) 50,000 Unit Capsule 50,000 Unit PO WEEKLY Proair Hfa Inhaler (Albuterol Sulfate) 8.5 Gm Hfa.aer.ad 1 Puff INH PRN Q6HRS PRN Simvastatin 20 Mg Tablet 20 Mg PO HS Vitals/I & O Vital Sign - Last 24 Hours 03/14/21 03/14/21 03/14/21 03/14/21 13:11 14:11 14:41 15:33 Temp 98.1 98.1 Pulse 85 86 84 80 Resp 12 B/P (MAP) 176/82 (113) 188/114 (138) 166/76 (106) 167/119 (135) Pulse Ox 96 94 97 98 O2 Delivery Room Air Nasal Cannula Nasal Cannula Nasal Cannula O2 Flow Rate 2.0 2.0 2.0 03/14/21 03/14/21 03/14/21 03/14/21 16:58 17:51 19:05 20:00 Temp 98.1 97.4 98.1 97.4 Pulse 84 77 74 Resp 20 24 B/P (MAP) 155/90 (111) 179/79 (112) 150/67 (94) Pulse Ox 98 100 97 O2 Delivery Nasal Cannula Room Air Nasal Cannula Nasal Cannula O2 Flow Rate 2.0 2.0 2.0 03/14/21 03/14/21 03/15/21 03/15/21 21:25 23:20 03:15 07:00 Temp 97.1 97.7 97.4 97.1 97.7 97.4 Pulse 74 77 75 75 Resp 24 28 28 B/P (MAP) 150/67 157/72 (100) 139/63 (88) 157/69 (98) Pulse Ox 97 95 94 O2 Delivery Nasal Cannula BiPAP/CPAP BiPAP/CPAP O2 Flow Rate 2.5 03/15/21 03/15/21 08:00 09:19 Pulse 75 B/P (MAP) 157/69 O2 Delivery Nasal Cannula O2 Flow Rate 2.0 Intake and Output 03/14/21 03/14/21 03/15/21 15:00 23:00 07:00 Intake Total 120 ml 420 ml Output Total 100 ml 400 ml Balance 20 ml 20 ml Justicifation of Admission Dx: Justifications for Admission: Justification of Admission Dx: Yes Chronic Renal Failure: Hypertension JAYLIN ROBERTSON MD March 15, 2021 10:26
[2021-03-15] MEDS ORDERED: MAGNESIUM OXIDE 400 MG TABLET PO ONE ×2 (10:30→13:00)
[2021-03-15 11:00] VITALS: BP 115/58
--- NOTE | 2021-03-15 11:36 | PDOC2 ---
CARDIOLOGY CONSULT NOTE DATE OF SERVICE: DATE: 03/15/21 TIME: 11:21 CHIEF COMPLAINT: Chest pain HPI: 50 y.o woman with Pmhx as noted below presents with sharp chest pain at rest. She reports the pain is intermittent and lasts 5 seconds. No nausea, vomiting, LH or dizziness. No vision changes. She does have chronic dyspnea on exertion. Today, she has no chest pain. PMHX: 1. CHF 2. Afib - Paroxysmal 3. Morbid Obesity 4. Pulmonary HTN 5. Prior history of loop recorder SOCHX: She is on disability due to her comorbidities. She is non-smoker. non-drinker. FAMHX: NC CURRENT MEDS: Current Medications Medications (Trade) Dose Ordered Sig/Jagjit Route PRN Reason Start Time Stop Time Status Last Admin Dose Admin Iohexol (Omnipaque 350 Mg/ml) 100 ml 1X ONCE IV 03/14/21 15:15 03/14/21 15:16 DC 03/14/21 15:37 Aspirin (Ecotrin) 81 mg DAILYWBKFT PO 03/15/21 08:00 03/15/21 09:13 Apixaban (Eliquis) 5 mg BID PO 03/14/21 21:00 03/15/21 09:13 Gabapentin (Neurontin) 400 mg TID PO 03/14/21 21:00 03/15/21 09:13 Simvastatin (Zocor) 20 mg HS PO 03/14/21 21:00 03/14/21 20:45 Pantoprazole Sodium (Protonix) 40 mg BIDAC PO 03/14/21 21:30 03/15/21 09:13 Flecainide Acetate (Tambocor) 100 mg BID PO 03/14/21 21:30 03/15/21 09:19 ALLERGIES: Allergies Uncoded Allergies Type Severity Reaction Last Updated Verified nitrites Allergy Unknown Unknown 03/14/21 ROS: Negative for 08/21 systems reviewed unless noted above in HPI PHYSICAL EXAM: Vital Signs/I&O: Vital Signs Date Time Temp Pulse Resp B/P (MAP) Pulse Ox O2 Delivery O2 Flow Rate FiO2 03/15/21 09:19 75 157/69 03/15/21 08:00 Nasal Cannula 2.0 03/15/21 07:00 97.4 28 94 97.4 I & O 03/14/21 03/14/2121 15:00 23:00 07:00 Intake Total 120 ml 420 ml Output Total 100 ml 400 ml Balance 20 ml 20 ml Physical Exam: GEN.: No apparent distress. Alert and oriented. HEENT: Head is normocephalic, atraumatic NECK: Supple. LUNGS: Distant heart sounds. HEART: RRR, S1, S2 present. Peripheral pulses intact ABDOMEN: Soft, nontender. Positive bowel sounds. EXTREMITIES: 1+ LE edema. NEUROLOGIC: Normal speech, normal tone PSYCHIATRIC: Normal affect, normal mood. SKIN: No ulcerations DIAGNOSTIC TESTING: +D-dimer Chest CTA reviewed - Labs reviewed. Lab Hgb 11, Plts 206 Wbc 4.3 ASSESSMENT: 1. Chronic secondary pulmonary HTN 2. HTN 3. TEO 4. Diastolic HF 5. PAF. PLAN: 1. Continue home meds. 2. No acute issues from a CV standpoint. EKG wnl. Trop negative. CT chest unremarkable. No further CV testing needed at this time. Ok to f/u at [facility]. Supportive care. ALONA ISLAS MD March 15, 2021 11:36
--- NOTE | 2021-03-15 14:02 | PDOC3 ---
Discharge Summary Date of Admission: March 14, 2021 Date of Discharge: March 15, 2021 Follow-Up: 3-5 days Admitting Diagnosis comment: HPI History of Present Illness: HPI: 50-year-old female with multiple morbidities pertinent for pulmonary hypertension currently on treprostinil inhaler, CHF, atrial fibrillation on Eliquis, history of loop recorder placement, morbid obesity, TEO who comes in due to chest pain for the last 3 days. She describes her chest pain as sharp left substernal in location and travels to her right shoulder. This will last for about 5 seconds and then her next episode will be about 12 hours later at night. This has been occurring for the last 3 days. She says she is very sensitive with her body and she knows when something is wrong. She describes the pain as 8 out of 10. Denies any nausea vomiting, syncope, palpitations, shortness of breath, pedal edema, abdominal pain, diarrhea or dysuria. Of note, patient does follow with Dr. Sahni and Dr. Navarro and she believes that this is where her loop recorder was placed. She still has a loop recorder in place and has not sent in the data for it yet. CONSULTS CARDIOLOGY, PULMONARY COMPLICATIONS NONE D/C CONDITION GOOD PROGNOSIS GOOD WITH COMPLIANCE D/C MEDS SEE JAN DISCHARGE DX D/C PLANNING 36 MIN Assessment/Plan Chest pain concerning for unstable angina/NSTEMI RULED OUT Hypertensive urgency Elevated D-dimer concerning for PE, ruled out with CT of the chest Elevated alkaline phosphatase likely due to increased bone turnover Hypomagnesemia History of diabetes mellitus type 2 History of pulmonary hypertension currently on treprostinil History of cirrhosis History of dyslipidemia History of atrial fibrillation currently on Eliquis Loop recorder implanted OHS/TEO Morbid obesity Admit to medicine for observation Obtain [facility] records of most recent visit and echocardiogram Labetalol IV as needed as needed for systolic blood pressure greater than 180 Cardiology consult Heart score 5 Troponin negative x1 Continue aspirin Cardiology consulted for predischarge stress testing or left heart cath Continue nitroglycerin as needed for pain Continue beta-padma if blood pressures allow Continue high intensity statins IV morphine as needed Consider Lovenox Maintain O2 sats between 88 to 95% Trend troponins Continue telemetry monitoring Monitor for electrolyte abnormalities Avoid NSAIDs Pulmonology consult for pulmonary hypertension management Eliquis for DVT prophylaxis Protonix GI prophylaxis ADA diet Full code Discussed with RN and SW Disposition inpatient management as above Surrogate decision maker is Otilio Cruz Post-discharge, she is instructed to follow up with her liquor commissioner [facility]. Follow up with her die trimmer at [facility] as well. Weight loss is advised. Home CPAP at nighttime. D/C PLANNING 37 MIN Justifications for Admission Justifications for Admission Other Justification History of Present Illness History of Present Illness Chief Complaint: Chief Complain: Chest pain History of Present Illness: HPI: 50-year-old female with multiple morbidities pertinent for pulmonary hypertension currently on treprostinil inhaler, CHF, atrial fibrillation on Eliquis, history of loop recorder placement, morbid obesity, TEO who comes in due to chest pain for the last 3 days. She describes her chest pain as sharp left substernal in location and travels to her right shoulder. This will last for about 5 seconds and then her next episode will be about 12 hours later at night. This has been occurring for the last 3 days. She says she is very sensitive with her body and she knows when something is wrong. She describes the pain as 8 out of 10. Denies any nausea vomiting, syncope, palpitations, shortness of breath, pedal edema, abdominal pain, diarrhea or dysuria. Of note, patient does follow with Dr. Sahni and Dr. Navarro and she believes that this is where her loop recorder was placed. She still has a loop recorder in place and has not sent in the data for it yet. Past Medical/Surgical History: PMH/PSH: Past Medical History Cardiovascular: HTN, atrial fibrillation on Eliquis, dyslipidemia, CHF Pulmonary: Pulmonary hypertension currently on treprostinil inhaler CENTRAL NERVOUS SYSTEM: Neuropathy, GI: GERD Heme/Onc: No pertinent hx Hepatobiliary: No pertinent hx Psych: Anxiety, Bipolar Musculoskeletal: Osteoarthritis Rheumatologic: No pertinent hx Infectious disease: No pertinent hx Renal/: Urinary Incontinence, Other Endocrine: Diabetes, morbid obesity Past Surgical History Past Surgical History: Allergies: Allergies: Uncoded Allergies: nitrites (Allergy, Unknown, Unknown, 03/14/21) "I'm not sure. just told me to tell everyone I had an allergic reaction to this." Family History: Family History: Reviewed with no relevant findings Social History: Social History: Denies alcohol, tobacco or drug abuse Current Medications: Current Medications Current Medications Iohexol (Omnipaque 350 Mg/ml) 100 ml 1X ONCE IV Last administered on 03/14/21at 15:37; Start 03/14/21 at 15:15; Stop 03/14/21 at 15:16; Status DC Info (CONTRAST GIVEN -- Rx MONITORING) 1 each PRN DAILY PRN MC SEE COMMENTS; Start 03/14/21 at 15:15; Stop 03/16/21 at 15:14 Active Scripts Active Zithromax (Azithromycin) 250 Mg Tablet 1 Pkg PO UD Medrol (Methylprednisolone) 4 Mg Tab.ds.pk 1 Pkg PO UD Hydrochlorothiazide Tablet (Hydrochlorothiazide) 25 Mg Tablet 25 Mg PO DAILY 30 Days [Pantoprazole] 40 MG Tablet.dr 40 Mg PO DAILYAC MDD 1 Mag-Al Plus Xs Suspension (Mag Hydrox/Al Hydrox/Simeth) 30 Ml Oral.susp 30 Ml PO PRN Q2HR PRN MDD 1 Diltiazem 24HR Cd (Diltiazem Hcl) 180 Mg Cap.er.24h 180 Mg PO DAILY MDD 1 Haskell 5-325 Tablet (Acetaminophen/Hydrocodone Bitart) 1 Each Tablet 1-2 Each PO PRN Q6HRS PRN as needed for pain Reported Tyvaso Inhalation Starter Kit (Treprostinil/Nebulizer/Accesor) 1.74 Mg/2.9 Ml Ampul.neb INH Q4HRS Losartan Potassium 100 Mg Tablet 1 Tab PO DAILY Flecainide Acetate 100 Mg Tablet 1 Tab PO BID Omeprazole 40 Mg Capsule.dr 40 Mg PO BID Tadalafil 20 Mg Tablet 1 Tab PO QODAY Gabapentin 400 Mg Capsule 400 Cap PO TID Eliquis (Apixaban) 5 Mg Tablet 5 Mg PO BID Medroxyprogesterone Acetate 10 Mg Tablet 10 Mg PO DAILY 10 Days Vitamin D (Cholecalciferol (Vitamin D3)) 50,000 Unit Capsule 50,000 Unit PO WEEKLY Triamcinolone Acetonide 80 Gm Oint...g. 80 Gm TP Trazodone Hcl 50 Mg Tablet 50 Mg PO HS Proair Hfa Inhaler (Albuterol Sulfate) 8.5 Gm Hfa.aer.ad 1 Puff INH PRN Q6HRS PRN Losartan Potassium (Losartan Potassium) 25 Mg Tablet 25 Mg PO DAILY Hydroxyzine Hcl 10 Mg/5 Ml Syrup 10 Mg PO TID Venlafaxine Hcl Er (Venlafaxine Hcl) 150 Mg Tab.er.24 150 Mg PO DAILY Metformin Hcl 500 Mg Tablet 1,000 Mg PO BIDBFRMEAL Simvastatin 20 Mg Tablet 20 Mg PO HS ROS: Review of Systems Review of System REVIEW OF SYSTEMS: GENERAL: Denies weakness SKIN: No bruising, hair changes or rashes. EYES: No blurred, double or loss of vision. NOSE AND THROAT: No history of nosebleeds, hoarseness or sore throat. HEART: No history of palpitations, chest pain or shortness of breath on exertion. LUNGS: Denies cough, hemoptysis, wheezing or shortness of breath. GASTROINTESTINAL: Denies changes in appetite, nausea, vomiting, diarrhea or constipation. GENITOURINARY: No history of frequency, urgency, hesitancy or nocturia. NEUROLOGIC: Denies history of numbness, tingling, or tremor. PSYCHIATRIC: No history of panic, anxiety or depression. ENDOCRINE: No history of heat or cold intolerance, polyuria or polydipsia. EXTREMITIES: Denies joint pain, pain on walking or stiffness. Vitals Vitals Vital Signs Date Time Temp Pulse Resp B/P (MAP) Pulse Ox O2 Delivery O2 Flow Rate FiO2 03/15/21 09:19 75 157/69 03/15/21 08:00 Nasal Cannula 2.0 03/15/21 07:00 97.4 28 94 97.4 Physical Exam Physical Exam Physcial Exam: GEN: No apparent distress. Alert and oriented HEENT: Normal cephalic, atraumatic, external auditory canals are patent EYES: Extraocular muscles are intact, pupil are equally round and reactive to light and accommodation MUSCULOSKELETAL: Well developed , well nourished, good range of motion ENDOCRINE: No thyromegaly was palpated LYMPHATICS: No cervical chain or axillary nodes were noted HEMATOPOIETIC: No bruising NECK: Supple, no JVD, no thyromegaly was noted LUNGS: Clear to auscultation in all lung troncoso without rhonchi or wheezing HEART: RRR, S!, S2 present. Peripheral pulses intact, no obvious murmurs noted ABDOMEN: Soft, nontender. Positive bowel sounds, no organomegaly, normal bowel sounds EXTREMITIES: Without clubbing, cyanosis, or edema. Pedal pulses intact. Negative Homans sign NEUROLOGIC: Normal speech and tone. A&O x 3, moves all extremities, no obvious focal deficits PSYCHIATRIC: Normal affect, normal mood. Stable SKIN: No ulcerations or rashes, good skin turgor, no jaundice VASCULAR: Good capillary refill, neurovascular bundle appears to be intact General: Alert, Oriented X3, Cooperative, No acute distress Lungs: Clear Abdomen: Normal bowel sounds, Soft Extremities: No cyanosis FINAL DIAGNOSIS Problems Medical Problems: (1) Chest pain Status: Acute (2) Hypertensive urgency Status: Acute Brief Hospital Course Ms. Aguilera is a 50 old [sex] who presented with [ ANGINA HIGH BP] CONDITION AT DISCHARGE: Improved Discharge Medications Current Medications Iohexol (Omnipaque 350 Mg/ml) 100 ml 1X ONCE IV Last administered on 03/14/21at 15:37; Start 03/14/21 at 15:15; Stop 03/14/21 at 15:16; Status DC Info (CONTRAST GIVEN -- Rx MONITORING) 1 each PRN DAILY PRN MC SEE COMMENTS; Start 03/14/21 at 15:15; Stop 03/16/21 at 15:14 Sennosides (Senna) 17.2 mg PRN BID PRN PO CONSTIPATION; Start 03/14/21 at 18:30 Docusate Sodium (Colace) 100 mg PRN DAILY PRN PO HARD STOOLS; Start 03/14/21 at 18:30 Ondansetron HCl (Zofran) 4 mg PRN Q6HRS PRN IVP NAUSEA/VOMITING; Start 03/14/21 at 18:30 Insulin Human Lispro (HumaLOG) 0-7 UNITS TIDWMEALS SQ ; Start 03/14/21 at 18:30 Dextrose (Dextrose 50%-Water Syringe) 12.5 gm PRN Q15MIN PRN IV SEE COMMENTS; Start 03/14/21 at 18:30 Acetaminophen (Tylenol) 650 mg PRN Q4HRS PRN PO TEMP OVER 100.4F OR MILD PAIN; Start 03/14/21 at 18:30 Oxycodone/ Acetaminophen (Percocet 5/325) 1 tab PRN Q4HRS PRN PO MILD PAIN, 1ST CHOICE; Start 03/14/21 at 18:30 Morphine Sulfate (Morphine Sulfate) 1 mg PRN Q1HR PRN IV PAIN; Start 03/14/21 at 18:30 Morphine Sulfate (Morphine Sulfate) 2 mg PRN Q2HR PRN IV SEVERE PAIN 7-10; Start 03/14/21 at 18:45 Aspirin (Ecotrin) 81 mg DAILYWBKFT PO Last administered on 03/15/21at 09:13; Start 03/15/21 at 08:00 Apixaban (Eliquis) 5 mg BID PO Last administered on 03/15/21at 09:13; Start 03/14/21 at 21:00 Furosemide (Lasix) 60 mg BID94 PO ; Start 03/15/21 at 09:00 Gabapentin (Neurontin) 400 mg TID PO Last administered on 03/15/21at 13:35; Start 03/14/21 at 21:00 Simvastatin (Zocor) 20 mg HS PO Last administered on 03/14/21at 20:45; Start 03/14/21 at 21:00 Pantoprazole Sodium (Protonix) 40 mg BIDAC PO Last administered on 03/15/21at 09:13; Start 03/14/21 at 21:30 Flecainide Acetate (Tambocor) 50 mg BID PO ; Start 03/14/21 at 21:30; Stop 03/14/21 at 21:15; Status DC Flecainide Acetate (Tambocor) 100 mg BID PO Last administered on 03/15/21at 09:19; Start 03/14/21 at 21:30 Zolpidem Tartrate (Ambien) 5 mg PRN QHS PRN PO INSOMNIA; Start 03/14/21 at 23:15 Magnesium Oxide (Magnesium Oxide) 800 mg 1X ONCE PO Last administered on 03/15/21at 11:41; Start 03/15/21 at 10:30; Stop 03/15/21 at 10:31; Status DC Magnesium Oxide (Magnesium Oxide) 400 mg 1X ONCE PO Last administered on 03/15/21at 13:37; Start 03/15/21 at 13:00; Stop 03/15/21 at 13:01; Status DC Active Scripts Active Haskell 5-325 Tablet (Acetaminophen/Hydrocodone Bitart) 1 Each Tablet 1-2 Each PO PRN Q6HRS PRN as needed for pain Reported Lasix (Furosemide) 40 Mg Tablet 60 Mg PO BID Magnesium (Magnesium Oxide) 400 Mg Capsule 400 Mg PO BID Metformin Hcl 500 Mg Tablet 500 Mg PO BIDWMEALS Tyvaso Inhalation Starter Kit (Treprostinil/Nebulizer/Accesor) 1.74 Mg/2.9 Ml Ampul.neb INH Q4HRS Losartan Potassium 100 Mg Tablet 1 Tab PO DAILY Flecainide Acetate 100 Mg Tablet 1 Tab PO BID Omeprazole 40 Mg Capsule.dr 40 Mg PO BID Tadalafil 20 Mg Tablet 1 Tab PO QODAY Gabapentin 400 Mg Capsule 400 Mg PO TID Eliquis (Apixaban) 5 Mg Tablet 5 Mg PO BID Vitamin D (Cholecalciferol (Vitamin D3)) 50,000 Unit Capsule 50,000 Unit PO WEEKLY Proair Hfa Inhaler (Albuterol Sulfate) 8.5 Gm Hfa.aer.ad 1 Puff INH PRN Q6HRS PRN Simvastatin 20 Mg Tablet 20 Mg PO HS Vital Signs Vital Signs Date Time Temp Pulse Resp B/P (MAP) Pulse Ox O2 Delivery O2 Flow Rate FiO2 03/15/21 11:00 97.6 78 28 115/58 (77) 94 BiPAP/CPAP 97.6 03/15/21 08:00 2.0 Labs Laboratory Tests Test 03/14/21 13:45 03/14/21 15:12 03/14/21 19:00 03/14/21 21:15 White Blood Count 5.0 x10^3/uL (4.0-11.0) Red Blood Count 4.22 x10^6/uL (3.50-5.40) Hemoglobin 11.5 g/dL (12.0-15.5) Hematocrit 35.7 % (36.0-47.0) Mean Corpuscular Volume 85 fL (79-100) Mean Corpuscular Hemoglobin 27 pg (25-35) Mean Corpuscular Hemoglobin Concent 32 g/dL (31-37) Red Cell Distribution Width 14.7 % (11.5-14.5) Platelet Count 210 x10^3/uL (140-400) Neutrophils (%) (Auto) 64 % (31-73) Lymphocytes (%) (Auto) 20 % (24-48) Monocytes (%) (Auto) 13 % (0-9) Eosinophils (%) (Auto) 3 % (0-3) Basophils (%) (Auto) 1 % (0-3) Neutrophils # (Auto) 3.2 x10^3/uL (1.8-7.7) Lymphocytes # (Auto) 1.0 x10^3/uL (1.0-4.8) Monocytes # (Auto) 0.6 x10^3/uL (0.0-1.1) Eosinophils # (Auto) 0.1 x10^3/uL (0.0-0.7) Basophils # (Auto) 0.0 x10^3/uL (0.0-0.2) D-Dimer (Nichol) 0.81 ug/mlFEU (0.00-0.50) Sodium Level 143 mmol/L (136-145) Potassium Level 3.9 mmol/L (3.5-5.1) Chloride Level 104 mmol/L (98-107) Carbon Dioxide Level 30 mmol/L (21-32) Anion Gap 9 (6-14) Blood Urea Nitrogen 17 mg/dL (7-20) Creatinine 0.9 mg/dL (0.6-1.0) Estimated GFR (Cockcroft-Gault) 80.2 BUN/Creatinine Ratio 19 (6-20) Glucose Level 107 mg/dL (70-99) Calcium Level 9.2 mg/dL (8.5-10.1) Magnesium Level 1.6 mg/dL (1.8-2.4) Total Bilirubin 0.6 mg/dL (0.2-1.0) Aspartate Amino Transf (AST/SGOT) 21 U/L (15-37) Alanine Aminotransferase (ALT/SGPT) 21 U/L (14-59) Alkaline Phosphatase 169 U/L (46-116) Creatine Kinase 103 U/L (26-192) Creatine Kinase MB (Mass) 0.9 ng/mL (0.0-3.6) Creatine Kinase MB Relative Index 0.9 % (0-4) Troponin I Quantitative < 0.017 ng/mL (0.000-0.055) < 0.017 ng/mL (0.000-0.055) Total Protein 7.3 g/dL (6.4-8.2) Albumin 3.6 g/dL (3.4-5.0) Albumin/Globulin Ratio 1.0 (1.0-1.7) Lipase 217 U/L (73-393) Urine Collection Type Void Urine Color Yellow Urine Clarity Clear Urine pH 6.0 (<5.0-8.0) Urine Specific [place] 1.020 (1.000-1.030) Urine Protein Negative mg/dL (NEG-TRACE) Urine Glucose (UA) Negative mg/dL (NEG) Urine Ketones (Stick) Negative mg/dL (NEG) Urine Blood Small (NEG) Urine Nitrite Negative (NEG) Urine Bilirubin Negative (NEG) Urine Urobilinogen Dipstick 1.0 mg/dL (0.2 mg/dL) Urine Leukocyte Esterase Trace (NEG) Urine RBC 3-5 /HPF (0-2) Urine WBC Occ /HPF (0-4) Urine Squamous Epithelial Cells Many /LPF Urine Bacteria Few /HPF (0-FEW) Urine Mucus Slight /LPF TR-Dae-N-Type Natriuretic Peptide 778 pg/mL (0-124) Glucose (Fingerstick) 99 mg/dL (70-99) Test 03/15/21 04:00 03/15/21 08:08 03/15/21 11:51 White Blood Count 4.3 x10^3/uL (4.0-11.0) Red Blood Count 4.04 x10^6/uL (3.50-5.40) Hemoglobin 11.0 g/dL (12.0-15.5) Hematocrit 34.2 % (36.0-47.0) Mean Corpuscular Volume 85 fL (79-100) Mean Corpuscular Hemoglobin 27 pg (25-35) Mean Corpuscular Hemoglobin Concent 32 g/dL (31-37) Red Cell Distribution Width 14.9 % (11.5-14.5) Platelet Count 206 x10^3/uL (140-400) Neutrophils (%) (Auto) 60 % (31-73) Lymphocytes (%) (Auto) 21 % (24-48) Monocytes (%) (Auto) 15 % (0-9) Eosinophils (%) (Auto) 4 % (0-3) Basophils (%) (Auto) 1 % (0-3) Neutrophils # (Auto) 2.6 x10^3/uL (1.8-7.7) Lymphocytes # (Auto) 0.9 x10^3/uL (1.0-4.8) Monocytes # (Auto) 0.6 x10^3/uL (0.0-1.1) Eosinophils # (Auto) 0.2 x10^3/uL (0.0-0.7) Basophils # (Auto) 0.0 x10^3/uL (0.0-0.2) Sodium Level 144 mmol/L (136-145) Potassium Level 3.9 mmol/L (3.5-5.1) Chloride Level 105 mmol/L (98-107) Carbon Dioxide Level 31 mmol/L (21-32) Anion Gap 8 (6-14) Blood Urea Nitrogen 17 mg/dL (7-20) Creatinine 0.8 mg/dL (0.6-1.0) Estimated GFR (Cockcroft-Gault) 91.9 Glucose Level 103 mg/dL (70-99) Calcium Level 8.7 mg/dL (8.5-10.1) Phosphorus Level 4.2 mg/dL (2.6-4.7) Magnesium Level 1.5 mg/dL (1.8-2.4) Troponin I Quantitative < 0.017 ng/mL (0.000-0.055) Triglycerides Level 73 mg/dL (0-150) Cholesterol Level 115 mg/dL (0-200) LDL Cholesterol, Calculated 65 mg/dL (0-100) VLDL Cholesterol, Calculated 15 mg/dL (0-40) Non-HDL Cholesterol Calculated 80 mg/dL (0-129) HDL Cholesterol 35 mg/dL (40-60) Cholesterol/HDL Ratio 3.3 Glucose (Fingerstick) 102 mg/dL (70-99) 134 mg/dL (70-99) Laboratory Tests Test 03/14/21 15:12 03/14/21 19:00 03/14/21 21:15 03/15/21 04:00 Urine Collection Type Void Urine Color Yellow Urine Clarity Clear Urine pH 6.0 (<5.0-8.0) Urine Specific [place] 1.020 (1.000-1.030) Urine Protein Negative mg/dL (NEG-TRACE) Urine Glucose (UA) Negative mg/dL (NEG) Urine Ketones (Stick) Negative mg/dL (NEG) Urine Blood Small (NEG) Urine Nitrite Negative (NEG) Urine Bilirubin Negative (NEG) Urine Urobilinogen Dipstick 1.0 mg/dL (0.2 mg/dL) Urine Leukocyte Esterase Trace (NEG) Urine RBC 3-5 /HPF (0-2) Urine WBC Occ /HPF (0-4) Urine Squamous Epithelial Cells Many /LPF Urine Bacteria Few /HPF (0-FEW) Urine Mucus Slight /LPF Troponin I Quantitative < 0.017 ng/mL (0.000-0.055) < 0.017 ng/mL (0.000-0.055) KE-Brv-F-Type Natriuretic Peptide 778 pg/mL (0-124) Glucose (Fingerstick) 99 mg/dL (70-99) White Blood Count 4.3 x10^3/uL (4.0-11.0) Red Blood Count 4.04 x10^6/uL (3.50-5.40) Hemoglobin 11.0 g/dL (12.0-15.5) Hematocrit 34.2 % (36.0-47.0) Mean Corpuscular Volume 85 fL (79-100) Mean Corpuscular Hemoglobin 27 pg (25-35) Mean Corpuscular Hemoglobin Concent 32 g/dL (31-37) Red Cell Distribution Width 14.9 % (11.5-14.5) Platelet Count 206 x10^3/uL (140-400) Neutrophils (%) (Auto) 60 % (31-73) Lymphocytes (%) (Auto) 21 % (24-48) Monocytes (%) (Auto) 15 % (0-9) Eosinophils (%) (Auto) 4 % (0-3) Basophils (%) (Auto) 1 % (0-3) Neutrophils # (Auto) 2.6 x10^3/uL (1.8-7.7) Lymphocytes # (Auto) 0.9 x10^3/uL (1.0-4.8) Monocytes # (Auto) 0.6 x10^3/uL (0.0-1.1) Eosinophils # (Auto) 0.2 x10^3/uL (0.0-0.7) Basophils # (Auto) 0.0 x10^3/uL (0.0-0.2) Sodium Level 144 mmol/L (136-145) Potassium Level 3.9 mmol/L (3.5-5.1) Chloride Level 105 mmol/L (98-107) Carbon Dioxide Level 31 mmol/L (21-32) Anion Gap 8 (6-14) Blood Urea Nitrogen 17 mg/dL (7-20) Creatinine 0.8 mg/dL (0.6-1.0) Estimated GFR (Cockcroft-Gault) 91.9 Glucose Level 103 mg/dL (70-99) Calcium Level 8.7 mg/dL (8.5-10.1) Phosphorus Level 4.2 mg/dL (2.6-4.7) Magnesium Level 1.5 mg/dL (1.8-2.4) Triglycerides Level 73 mg/dL (0-150) Cholesterol Level 115 mg/dL (0-200) LDL Cholesterol, Calculated 65 mg/dL (0-100) VLDL Cholesterol, Calculated 15 mg/dL (0-40) Non-HDL Cholesterol Calculated 80 mg/dL (0-129) HDL Cholesterol 35 mg/dL (40-60) Cholesterol/HDL Ratio 3.3 Test 03/15/21 08:08 03/15/21 11:51 Glucose (Fingerstick) 102 mg/dL (70-99) 134 mg/dL (70-99) Allergies Allergies Uncoded Allergies Type Severity Reaction Last Updated Verified nitrites Allergy Unknown Unknown 03/14/21 Disposition/Orders: D/C to Home Justicifation of Admission Dx: Justifications for Admission: Justification of Admission Dx: Yes Chronic Renal Failure: Hypertension JAYLIN ROBERTSON MD March 15, 2021 14:02
[2021-03-15] MEDS ORDERED: ASPI-886 PO (14:04)
[2021-03-15] MEDS ORDERED: DOCU-153 PO (14:04)
[2021-03-15] MEDS ORDERED: INSU100V35 SQ (14:04)
--- NOTE | 2021-03-15 15:55 | NUR ---
Discharge Note: FABIO PERES [address] [place] [address] Discharge instructions and discharge home medications reviewed with Patient and a copy given. All questions have been answered and understanding verbalized. The following instructions and handouts were given: discharge instructions, med list, CHF education, pulm HTN education, CP education. Discontinued lines and drains: Peripheral IV intact. Patient discharged to Home or Self Care with transportation via Wheelchair at 1555.
== END 2021-03-15 15:55 | disposition home or self-care (01) ==
LOC: ER 12:58 → ED HOLD 15:37 → 2 SOUTH 17:24
PROVIDERS: ADMIT Internal Medicine; ATTEND Internal Medicine
DX: R07.89 Other chest pain (principal); I16.0 Hypertensive urgency; I11.0 Hypertensive heart disease with heart failure; I50.30 Unspecified diastolic (congestive) heart failure; E11.9 Type 2 diabetes mellitus without complications; E83.42 Hypomagnesemia; K74.60 Unspecified cirrhosis of liver; E78.5 Hyperlipidemia, unspecified; I48.91 Unspecified atrial fibrillation; I27.20 Pulmonary hypertension, unspecified; G47.33 Obstructive sleep apnea (adult) (pediatric); E66.01 Morbid (severe) obesity due to excess calories; D86.9 Sarcoidosis, unspecified; E78.00 Pure hypercholesterolemia, unspecified; F31.9 Bipolar disorder, unspecified; F43.10 Post-traumatic stress disorder, unspecified; I48.0 Paroxysmal atrial fibrillation; J45.909 Unspecified asthma, uncomplicated; M19.90 Unspecified osteoarthritis, unspecified site; F41.9 Anxiety disorder, unspecified; R32 Unspecified urinary incontinence; R77.8 Other specified abnormalities of plasma proteins; I20.9 Angina pectoris, unspecified; Z68.43 Body mass index [BMI] 50.0-59.9, adult; Z79.01 Long term (current) use of anticoagulants; Z79.84 Long term (current) use of oral hypoglycemic drugs; Z79.899 Other long term (current) drug therapy; Z98.891 History of uterine scar from previous surgery; Z98.51 Tubal ligation status; Z98.890 Other specified postprocedural states
CPT/HCPCS: 36415; 71045; 71275; 80048; 80053; 80061; 81001; 82553; 82962; 83690; 83735; 83880; 84100; 84484; 85025; 85379; 87086; 93005; 94660; 97161; 97165; 97535; 99285; G0378; J1815; Q9967; G0379

== ENCOUNTER → 2021-10-27 | Outpatient (CLI) | payer OTHER ==
[~2021-10-27] MED LIST changes: +ASPI-886 PO; +DOCU-148 PO; +FLEC100T PO; +FURO-68 PO; +GABA400C7 PO; +INSU100V35 SQ; -LISI-517 PO; -LISI2.5T PO; +LISI2.5T12 PO; +LISI5TAB15 PO; +LOSA100T14 PO; +MAGN400C PO; -OMEP40CA45 PO; +OMEP40CA7 PO; +TADA20TA70 PO; +[UNRECOGNIZED DRUG - CODE] INH
--- NOTE | 2021-10-27 11:50 | KCIC ---
BILATERAL SCREENING MAMMOGRAM History: Routine screening. Comparison: Bilateral mammogram July 16, 2020 and prior years. Technique: Routine digital mammogram views were obtained. Findings: Breast Tissue Density A : The breasts are almost entirely fatty. Stable intramammary lymph node of the left breast 2:00 C position. Stable loop recorder device of the inner posterior left breast. Axillary lymph nodes are stable. There are no dominant masses, suspicious microcalcifications or architectural distortion. IMPRESSION: No mammographic evidence of malignancy. Recommend routine screening. BI-RADS category 2: Benign findings. The images were reviewed with computer aided detection. Patient information is entered into the reminder system with a target due date for the next screening mammogram. Mammography is the most sensitive method for finding small breast cancers, but it does not detect the m all and is not a substitute for careful clinical examination. A negative mammogram does not negate a clinically suspicious finding and should not result in delay in biopsying a clinically suspicious a bnormality. "Our facility is accredited by the [employer] Mammography Program." Electronically signed by: Hero Vega MD (10/27/2021 11:47 AM) [id number]
== END ==
LOC: KCIC MAMMO 10:03
PROVIDERS: ATTEND Obstetrics & Gynecology
DX: Z12.31 Encounter for screening mammogram for malignant neoplasm of breast (principal)
CPT/HCPCS: 77067

== ENCOUNTER 2021-11-30 03:49 | Inpatient (IN) | payer OTHER ==
[~2021-11-30] VITALS: Ht 157.5 cm; Wt 158.0 kg
[2021-11-30 04:33] LABS: BASO % 1 % (0-3); EOS # 0.2 x10^3/uL (0.0-0.7); EOS % 4 % (0-3); HEMATOCRIT 36.8 % (36.0-47.0); HEMOGLOBIN 11.5 g/dL (12.0-15.5); LYMPH % 16 % (24-48); MEAN CORPUSCULAR HEMOGLOBIN 26 pg (25-35); MEAN CORPUSCULAR HGB CONC 31 g/dL (31-37); MEAN CORPUSCULAR VOLUME 83 fL (79-100); MONO # 0.8 x10^3/uL (0.0-1.1); MONO % 13 % (0-9); NEUT # 4.2 x10^3/uL (1.8-7.7); NEUT % 67 % (31-73); PLATELET COUNT 243 x10^3/uL (140-400); RED BLOOD COUNT 4.44 x10^6/uL (3.50-5.40); RED CELL DISTRIBUTION WIDTH 15.5 % (11.5-14.5); WHITE BLOOD COUNT 6.2 x10^3/uL (4.0-11.0)
--- NOTE | 2021-11-30 04:34 | EKG ---
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
[2021-11-30 04:49] LABS: CALCIUM 8.2 mg/dL (8.5-10.1); CREATININE 0.9 mg/dL (0.6-1.0); GFR 79.9; POTASSIUM 3.7 mmol/L (3.5-5.1)
[2021-11-30 04:50] LABS: PROTHROMBIN TIME PATIENT 14.5 SEC (11.7-14.0)
[2021-11-30 04:55] LABS: ALBUMIN/GLOBULIN RATIO 0.7 (1.0-1.7); TOTAL BILIRUBIN 0.4 mg/dL (0.2-1.0); TOTAL PROTEIN 7.2 g/dL (6.4-8.2)
--- NOTE | 2021-11-30 05:00 | RAD ---
XR CHEST 1V Clinical Indication: Reason: palpitations / Spl. Instructions: / History: Comparison: AP chest November 16, 2021 Findings: Stable cardiac enlargement. Limited evaluation of the left lung base due to the cardiac silhouette. B ilateral hilar adenopathy is unchanged radiographically. Mild bibasilar airspace opacities. There is no pneumothorax. No pleural effusion is appreciated. No acute bone abnormality. IMPRESSION: 1. Bilateral hilar adenopathy is unchanged. 2. Mild bibasilar airspace disease. Electronically signed by: Hero Vega MD (11/30/2021 4:58 AM) [facility]
--- NOTE | 2021-11-30 05:54 | PHYS DOC ---
Past Medical History Past Medical History: A-Fib, Anxiety, Asthma, Diabetes-Type II, High Cholesterol, Hypertension, Other Additional Past Medical Histor: PTSD, MORBID OBESITY, SARCOIDOSIS, pulmonary hypertension Past Surgical History: , Tubal ligation, Other Additional Past Surgical Histo: uterine fibroids shrunk Smoking Status: Former Smoker Alcohol Use: None Drug Use: None Adult General Chief Complaint Chief Complaint: Palpitations HPI HPI The patient is a 51-year-old morbidly obese comorbid female with a history of hypertension, hyperlipidemia, diastolic heart failure and pulmonary hypertension with chronic hypoxemic respiratory failure on about 3 L of home oxygen at baseline, paroxysmal atrial fibrillation status post ablation, loop recorder in place, and on Eliquis and flecainide. Ms. Aguilera presents for evaluation of palpitations with onset a couple of hours prior to arrival. She feels as though her heart is beating fast. She felt well when she went to bed but the palpitations woke her up. She denies any other focal or specific symptoms and specifically denies fevers, nausea or vomiting, upper respiratory congestion/rhinorrhea, cough, sore throat, shortness of breath or chest pain of any kind, abdominal pain of any kind, flank pain, midline back pain, dysuria, hematuria, polyuria or oliguria, changes in bowel habits, pain or swelling to arms or legs. Patient is alert and pleasantly and appropriately interactive and in no acute distress with appropriate vital signs including oxygenation in the mid 90s on her typical 3 L of home oxygen. Review of Systems Review of Systems A 12 point review of systems was completed and was negative except for noted in HPI above. Current Medications Current Medications Current Medications Medications (Trade) Dose Ordered Sig/Jagjit Start Time Stop Time Status Last Admin Dose Admin Diltiazem HCl (Cardizem Iv Push) 10 mg 1X ONCE 11/30/21 05:15 11/30/21 05:16 DC 11/30/21 05:50 10 MG Allergies Allergies Allergies Coded Allergies Type Severity Reaction Last Updated Verified Nitrate Analogues Allergy Intermediate Unknown 11/18/21 Yes Physical Exam Physical Exam Chronically ill-appearing morbidly obese female appearing nontoxic and in no acute distress. Head is normocephalic and atraumatic. Neck is supple and nontender. Oropharynx is moist. Lungs are clear to auscultation at all stations. There is a normal S1 and S2 without rubs or gallops and capillary refill is appropriate, less than 2 seconds globally. Mildly tachycardic, regular rate. Abdomen is soft, nontender nondistended. Skin is warm and dry without cyanosis, clubbing or edema. Psychiatrically, the patient demonstrates appropriate mood and affect and is alert. Evaluation of the extremities reveals BUEs and BLEs neurovascularly intact distally with strength 5-5, sensation intact light touch in all nerve distributions, radial, DP and PT pulses 2+ and equal bilaterally, capillary refill less than 2 seconds, hands and feet warm and well-perfused. Minimal dependent peripheral edema distally, 1+ and symmetric, below the level of the mid shins bilaterally. No calf tenderness or swelling bilaterally. Homans test is negative bilaterally. Current Patient Data Vital Signs Vital Signs Date Time Temp Pulse Resp B/P (MAP) Pulse Ox O2 Delivery O2 Flow Rate FiO2 11/30/21 03:55 98.3 120 20 140/70 (93) 93 Nasal Cannula 2.0 98.3 Lab Values Laboratory Tests Test 11/30/21 04:00 11/30/21 04:46 White Blood Count 6.2 x10^3/uL (4.0-11.0) Red Blood Count 4.44 x10^6/uL (3.50-5.40) Hemoglobin 11.5 g/dL (12.0-15.5) L Hematocrit 36.8 % (36.0-47.0) Mean Corpuscular Volume 83 fL (79-100) Mean Corpuscular Hemoglobin 26 pg (25-35) Mean Corpuscular Hemoglobin Concent 31 g/dL (31-37) Red Cell Distribution Width 15.5 % (11.5-14.5) H Platelet Count 243 x10^3/uL (140-400) Neutrophils (%) (Auto) 67 % (31-73) Lymphocytes (%) (Auto) 16 % (24-48) L Monocytes (%) (Auto) 13 % (0-9) H Eosinophils (%) (Auto) 4 % (0-3) H Basophils (%) (Auto) 1 % (0-3) Neutrophils # (Auto) 4.2 x10^3/uL (1.8-7.7) Lymphocytes # (Auto) 1.0 x10^3/uL (1.0-4.8) Monocytes # (Auto) 0.8 x10^3/uL (0.0-1.1) Eosinophils # (Auto) 0.2 x10^3/uL (0.0-0.7) Basophils # (Auto) 0.0 x10^3/uL (0.0-0.2) Prothrombin Time 14.5 SEC (11.7-14.0) H Prothrombin Time INR 1.1 (0.8-1.1) Activated Partial Thromboplast Time 38 SEC (24-38) Sodium Level 144 mmol/L (136-145) Potassium Level 3.7 mmol/L (3.5-5.1) Chloride Level 106 mmol/L (98-107) Carbon Dioxide Level 27 mmol/L (21-32) Anion Gap 11 (6-14) Blood Urea Nitrogen 14 mg/dL (7-20) Creatinine 0.9 mg/dL (0.6-1.0) Estimated GFR (Cockcroft-Gault) 79.9 BUN/Creatinine Ratio 16 (6-20) Glucose Level 139 mg/dL (70-99) H Calcium Level 8.2 mg/dL (8.5-10.1) L Total Bilirubin 0.4 mg/dL (0.2-1.0) Aspartate Amino Transferase (AST) 17 U/L (15-37) Alanine Aminotransferase (ALT) 17 U/L (14-59) Alkaline Phosphatase 129 U/L (46-116) H Troponin I High Sensitivity 20 ng/L (4-50) KR-Kvr-S-Type Natriuretic Peptide 619 pg/mL (0-124) H Total Protein 7.2 g/dL (6.4-8.2) Albumin 3.0 g/dL (3.4-5.0) L Albumin/Globulin Ratio 0.7 (1.0-1.7) L SARS-CoV-2 Antigen (Rapid) Negative (NEGATIVE) Laboratory Tests 11/30/21 04:00 Laboratory Tests 11/30/21 04:00 EKG EKG Indeterminate narrow complex regular rhythm, most likely slow atrial flutter, rate about 120, no acute ST elevation or depression, occasional PVCs, EP interpretation. Nonischemic tracing. Radiology/Procedures Radiology/Procedures XR CHEST 1V Clinical Indication: Reason: palpitations / Spl. Instructions: / History: Comparison: AP chest November 16, 2021 Findings: Stable cardiac enlargement. Limited evaluation of the left lung base due to the cardiac silhouette. Bilateral hilar adenopathy is unchanged radiographically. Mild bibasilar airspace opacities. There is no pneumothorax. No pleural effusion is appreciated. No acute bone abnormality. IMPRESSION: 1. Bilateral hilar adenopathy is unchanged. 2. Mild bibasilar airspace disease. Electronically signed by: Hero Vega MD (11/30/2021 4:58 AM) [facility] DICTATED and SIGNED BY: HERO VEGA MD DATE: 11/30/21 [id number] 0 Course & Med Decision Making Course & Med Decision Making Labs and imaging are generally without evidence of acute process. Patient appears clinically euvolemic, or perhaps slightly fluid overloaded, and is saturating appropriately on her typical home oxygen. She has evidence of an acute tachyarrhythmia which appears most consistent with atrial flutter. Rate around 110 after a small dose of IV Cardizem. Patient is hemodynamically stable. Will bring in for further care to include cardiology consultation. Dr. Duran graciously accepts. Notably, patient states she has continued to be noncompliant with her home Lasix since her discharge from the hospital last week. Dragon Disclaimer Dragon Disclaimer This electronic medical record was generated, in whole or in part, using a voice recognition dictation system. Departure Departure Impression: Primary Impression: Atrial flutter with rapid ventricular response Additional Impression: Chronic hypoxemic respiratory failure Disposition: ADMITTED INPATIENT Condition: GUARDED Referrals: PATRICIA AGUILAR MD (PCP) Problem Qualifiers BASSEM SANCHEZ MD Nov 30, 2021 05:54
[2021-11-30] MEDS ORDERED: ACETAMINOPHEN 325 MG TABLET. PO PRN (06:30)
[2021-11-30 07:30] VITALS: BP 141/76
[2021-11-30] MEDS ORDERED: DEXTROSE 50% 25 GM / 50ML DISP.SYRIN. IV PRN (08:00)
[2021-11-30] MEDS ORDERED: DOCUSATE SODIUM 100 MG CAPSULE. PO PRN (08:00)
[2021-11-30] MEDS ORDERED: ONDANSETRON PF 4 MG/2 ML VIAL. IVP PRN (08:00)
[2021-11-30] MEDS ORDERED: ALBUTEROL SULFATE 2.5 MG/3 ML NEBU. INH PRN (08:00)
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
[2021-11-30] MEDS: LOSARTAN POTASSIUM 50 MG TABLET. PO SCH (09:00)
[2021-11-30] MEDS ORDERED: TADALAFIL PO SCH (09:00)
[2021-11-30] MEDS ORDERED: POTASSIUM CHLORIDE 20 MEQ TABLET.ER. PO ONE (09:00)
[2021-11-30] MEDS: INSULIN LISPRO 300 UNITS/3 ML VIAL. SQ SCH ×3 (09:00→21:00)
[2021-11-30] MEDS: FLECAINIDE ACETATE 50 MG TABLET. PO SCH ×2 (09:44→21:35)
[2021-11-30] MEDS: APIXABAN 5 MG TABLET. PO SCH ×2 (09:44→21:25)
[2021-11-30] MEDS: ASPIRIN ENTERIC COATED 81 MG TABLET.DR. PO SCH (09:44)
[2021-11-30] MEDS: PANTOPRAZOLE 40 MG TABLET.DR. PO SCH (09:44)
[2021-11-30] MEDS: GABAPENTIN 400 MG CAPSULE. PO SCH ×3 (09:45→21:26)
[2021-11-30] MEDS: MAGNESIUM OXIDE 400 MG TABLET PO SCH ×2 (09:45→21:26)
[2021-11-30] MEDS: FUROSEMIDE 40 MG TABLET. PO SCH ×2 (09:45→21:00)
[2021-11-30] MEDS ORDERED: MAGNESIUM SULFATE 4GM 100 ML IV ONE (10:00)
[2021-11-30 11:00] VITALS: BP_SYST 159; BP_SYST 171; BP_DIAS 101; BP_DIAS 74
[2021-11-30 15:00] VITALS: BP 132/67
--- NOTE | 2021-11-30 16:46 | PDOC ---
CARDIOLOGY PROGRESS NOTE SUBJECTIVE: Please see prior notes from 2 weeks ago regarding full history. 51-year-old woman with past medical history of morbid obesity, paroxysmal supraventricular tachycardia presents to the hospital in the setting of atypical chest pain. She was found to have what appears to be most likely sinus tachycardia versus slow AVNRT. She reports compliance with her medications but has been under significant stressors according to her. Denies any current chest pain. She is mostly concerned about her psychosocial issues at this time OBJECTIVE: Vital Signs/I&O: Vital Signs Date Time Temp Pulse Resp B/P (MAP) Pulse Ox O2 Delivery O2 Flow Rate FiO2 11/30/21 11:00 98.6 86 20 171/74 (106) 93 Nasal Cannula 2.0 98.6 Objective: On examination she is morbidly obese. She is in mild distress from her anxiety issues Head and neck exam is unremarkable Cardiac regular rate and rhythm without any obvious murmurs rubs or gallops Lungs are clear to auscultation bilaterally 2+ radial pulses Trivial pedal edema. Nonfocal neurologic examination CURRENT MEDICATIONS: Current Medications Medications (Trade) Dose Ordered Sig/Jagjit Route PRN Reason Start Time Stop Time Status Last Admin Dose Admin Diltiazem HCl (Cardizem Iv Push) 10 mg 1X ONCE IVP 11/30/21 05:15 11/30/21 05:16 DC 11/30/21 05:50 Apixaban (Eliquis) 5 mg BID PO 11/30/21 09:00 11/30/21 09:44 Aspirin (Ecotrin) 81 mg DAILYWBKFT PO 11/30/21 09:00 11/30/21 09:44 Furosemide (Lasix) 60 mg BID PO 11/30/21 09:00 11/30/21 09:45 Gabapentin (Neurontin) 400 mg TID PO 11/30/21 09:00 11/30/21 13:35 Flecainide Acetate (Tambocor) 100 mg Q12HR PO 11/30/21 09:00 11/30/21 09:44 Losartan Potassium (Cozaar) 100 mg DAILY PO 11/30/21 09:00 11/30/21 09:00 Magnesium Oxide (Magnesium Oxide) 400 mg BID PO 11/30/21 09:00 11/30/21 09:45 Pantoprazole Sodium (Protonix) 40 mg BIDAC PO 11/30/21 09:00 11/30/21 09:44 Potassium Chloride (Klor-Con) 40 meq 1X ONCE PO 11/30/21 09:00 11/30/21 09:01 DC 11/30/21 09:45 Magnesium Sulfate 100 ml @ 25 mls/hr 1X ONCE IV 11/30/21 10:00 11/30/21 13:59 DC 11/30/21 09:44 DIAGNOSTIC TESTING: EKG is most suggestive of sinus tachycardia with first-degree AV block versus s low AVNRT Telemetry is unremarkable Cardiac enzymes are negative Labs: Laboratory Tests 11/30/21 04:00 Laboratory Tests Test 11/30/21 04:00 11/30/21 04:46 11/30/21 07:35 11/30/21 11:53 White Blood Count 6.2 x10^3/uL (4.0-11.0) Red Blood Count 4.44 x10^6/uL (3.50-5.40) Hemoglobin 11.5 g/dL (12.0-15.5) L Hematocrit 36.8 % (36.0-47.0) Mean Corpuscular Volume 83 fL (79-100) Mean Corpuscular Hemoglobin 26 pg (25-35) Mean Corpuscular Hemoglobin Concent 31 g/dL (31-37) Red Cell Distribution Width 15.5 % (11.5-14.5) H Platelet Count 243 x10^3/uL (140-400) Neutrophils (%) (Auto) 67 % (31-73) Lymphocytes (%) (Auto) 16 % (24-48) L Monocytes (%) (Auto) 13 % (0-9) H Eosinophils (%) (Auto) 4 % (0-3) H Basophils (%) (Auto) 1 % (0-3) Neutrophils # (Auto) 4.2 x10^3/uL (1.8-7.7) Lymphocytes # (Auto) 1.0 x10^3/uL (1.0-4.8) Monocytes # (Auto) 0.8 x10^3/uL (0.0-1.1) Eosinophils # (Auto) 0.2 x10^3/uL (0.0-0.7) Basophils # (Auto) 0.0 x10^3/uL (0.0-0.2) Prothrombin Time 14.5 SEC (11.7-14.0) H Prothromb Time International Ratio 1.1 (0.8-1.1) Activated Partial Thromboplast Time 38 SEC (24-38) Sodium Level 144 mmol/L (136-145) Potassium Level 3.7 mmol/L (3.5-5.1) Chloride Level 106 mmol/L (98-107) Carbon Dioxide Level 27 mmol/L (21-32) Anion Gap 11 (6-14) Blood Urea Nitrogen 14 mg/dL (7-20) Creatinine 0.9 mg/dL (0.6-1.0) Estimated GFR (Cockcroft-Gault) 79.9 BUN/Creatinine Ratio 16 (6-20) Glucose Level 139 mg/dL (70-99) H Calcium Level 8.2 mg/dL (8.5-10.1) L Total Bilirubin 0.4 mg/dL (0.2-1.0) Aspartate Amino Transf (AST/SGOT) 17 U/L (15-37) Alkaline Phosphatase 129 U/L (46-116) H Troponin I High Sensitivity 20 ng/L (4-50) 18 ng/L (4-50) Total Protein 7.2 g/dL (6.4-8.2) Albumin 3.0 g/dL (3.4-5.0) L Albumin/Globulin Ratio 0.7 (1.0-1.7) L SARS-CoV-2 Antigen (Rapid) Negative (NEGATIVE) Glucose (Fingerstick) 139 mg/dL (70-99) H Test 11/30/21 16:26 Glucose (Fingerstick) 89 mg/dL (70-99) ASSESSMENT: 1. Noncardiac chest pain 2. SVT 3. Morbid obesity 4. Obstructive sleep apnea 5. Hypertension PLAN: 1. Continue current medical therapy for her SVT with flecainide. We will confirm that she is taking her medications. 2. We will start the patient on diltiazem 120 mg daily to help decrease risk of future episodes. 3. Follow-up with outpatient cardiology service for consideration of EP study. I suspect a lot of the patient's exacerbating factors are related to her obesity and sleep apnea. Justicifation of Admission Dx: Justifications for Admission: Justification of Admission Dx: Yes Chronic Renal Failure: Hypertension ALONA ISLAS MD Nov 30, 2021 16:46
[2021-11-30 19:35] VITALS: BP 143/72
[2021-11-30] MEDS ORDERED: SIMVASTATIN 20 MG TABLET PO SCH (21:00)
[2021-11-30 22:41] VITALS: BP 219/95
[2021-12-01] MEDS ORDERED: ZOLPIDEM 5 MG TABLET. PO PRN (02:00)
[2021-12-01 02:45] VITALS: BP 135/73
[2021-12-01 05:30] LABS: BASO % 0 % (0-3); EOS # 0.2 x10^3/uL (0.0-0.7); EOS % 5 % (0-3); HEMATOCRIT 37.6 % (36.0-47.0); HEMOGLOBIN 11.7 g/dL (12.0-15.5); LYMPH # 1.2 x10^3/uL (1.0-4.8); LYMPH % 24 % (24-48); MEAN CORPUSCULAR HEMOGLOBIN 26 pg (25-35); MEAN CORPUSCULAR HGB CONC 31 g/dL (31-37); MEAN CORPUSCULAR VOLUME 83 fL (79-100); MONO # 0.7 x10^3/uL (0.0-1.1); MONO % 13 % (0-9); NEUT # 3.1 x10^3/uL (1.8-7.7); NEUT % 59 % (31-73); PLATELET COUNT 260 x10^3/uL (140-400); RED BLOOD COUNT 4.54 x10^6/uL (3.50-5.40); RED CELL DISTRIBUTION WIDTH 15.7 % (11.5-14.5); WHITE BLOOD COUNT 5.3 x10^3/uL (4.0-11.0)
[2021-12-01 05:39] LABS: CALCIUM 8.5 mg/dL (8.5-10.1); CREATININE 0.8 mg/dL (0.6-1.0); GFR 91.5; POTASSIUM 4.2 mmol/L (3.5-5.1)
[2021-12-01] MEDS: PANTOPRAZOLE 40 MG TABLET.DR. PO SCH (05:43)
[2021-12-01 07:00] VITALS: BP 140/73
[2021-12-01] MEDS: INSULIN LISPRO 300 UNITS/3 ML VIAL. SQ SCH ×2 (07:44→11:17)
[2021-12-01] MEDS: GABAPENTIN 400 MG CAPSULE. PO SCH ×2 (08:58→14:09)
[2021-12-01] MEDS: ASPIRIN ENTERIC COATED 81 MG TABLET.DR. PO SCH (08:58)
[2021-12-01] MEDS: APIXABAN 5 MG TABLET. PO SCH (08:58)
[2021-12-01] MEDS: FUROSEMIDE 40 MG TABLET. PO SCH ×2 (08:59→09:00)
[2021-12-01] MEDS: MAGNESIUM OXIDE 400 MG TABLET PO SCH (09:00)
[2021-12-01] MEDS: LOSARTAN POTASSIUM 50 MG TABLET. PO SCH (09:00)
[2021-12-01] MEDS: FLECAINIDE ACETATE 50 MG TABLET. PO SCH (10:01)
[2021-12-01 10:32] VITALS: BP 160/92
--- NOTE | 2021-12-01 10:56 | PDOC ---
[employer] DO ENGAGEMENT LEAD 12/01/21 1056: CARDIO Progress Notes Date and Time Date of Service 12/01/21 Time of Evaluation 1050 Subjective Subjective: No Chest Pain, No shortness of breath Vitals Vitals Vital Signs Date Time Temp Pulse Resp B/P (MAP) Pulse Ox O2 Delivery O2 Flow Rate FiO2 12/01/21 10:32 98.7 76 20 160/92 (114) 94 Nasal Cannula 2.0 98.7 Weight Weight [ ] Input and Output Intake and Output l Intake and Output 12/01/21 07:00 Intake Total 160 ml Output Total 3800 ml Balance -3640 ml Intake Oral 160 ml Output Urine Total 3800 ml Laboratory Labs Laboratory Tests Test 11/30/21 11:53 11/30/21 16:26 11/30/21 20:55 12/01/21 04:45 Glucose (Fingerstick) 139 mg/dL (70-99) 89 mg/dL (70-99) 101 mg/dL (70-99) White Blood Count 5.3 x10^3/uL (4.0-11.0) Red Blood Count 4.54 x10^6/uL (3.50-5.40) Hemoglobin 11.7 g/dL (12.0-15.5) Hematocrit 37.6 % (36.0-47.0) Mean Corpuscular Volume 83 fL (79-100) Mean Corpuscular Hemoglobin 26 pg (25-35) Mean Corpuscular Hemoglobin Concent 31 g/dL (31-37) Red Cell Distribution Width 15.7 % (11.5-14.5) Platelet Count 260 x10^3/uL (140-400) Neutrophils (%) (Auto) 59 % (31-73) Lymphocytes (%) (Auto) 24 % (24-48) Monocytes (%) (Auto) 13 % (0-9) Eosinophils (%) (Auto) 5 % (0-3) Basophils (%) (Auto) 0 % (0-3) Neutrophils # (Auto) 3.1 x10^3/uL (1.8-7.7) Lymphocytes # (Auto) 1.2 x10^3/uL (1.0-4.8) Monocytes # (Auto) 0.7 x10^3/uL (0.0-1.1) Eosinophils # (Auto) 0.2 x10^3/uL (0.0-0.7) Basophils # (Auto) 0.0 x10^3/uL (0.0-0.2) Sodium Level 143 mmol/L (136-145) Potassium Level 4.2 mmol/L (3.5-5.1) Chloride Level 105 mmol/L (98-107) Carbon Dioxide Level 30 mmol/L (21-32) Anion Gap 8 (6-14) Blood Urea Nitrogen 13 mg/dL (7-20) Creatinine 0.8 mg/dL (0.6-1.0) Estimated GFR (Cockcroft-Gault) 91.5 Glucose Level 97 mg/dL (70-99) Calcium Level 8.5 mg/dL (8.5-10.1) Test 12/01/21 07:30 Glucose (Fingerstick) 108 mg/dL (70-99) Physical Exam HEENT: Neck Supple W Full Motion Chest: Symmetric LUNGS: Clear to Auscultation Heart: S1S2, RRR Abdomen: Soft N/T, Other (obese ) Extremities: Other (trace bilateral LE edema ) Neurology: alert, oriented, follow commands Assessment Assessment 1. Chest pain, atypical; AMI ruled out 2. PAFIB; s/p CV. presently in SR. Patient usually follows up with ALEKSEY Alejandro at [facility]. 3. Chronic diastolic CHF; appears compensated 4. Hypertension; controlled 5. Hyperlipidemia; statin therapy 6. Diabetes, II 7. Pulmonary hypertension: On tadalafil 8. Morbid obesity, TEO- compliant with CPAP Recommendations Continue flecainide for rhythm maintenance Cardizem for rate control. Stroke prophylaxis with Eliquis Consider outpatient ischemic evaluation Justicifation of Admission Dx: Justifications for Admission: Justification of Admission Dx: Yes Chronic Renal Failure: Hypertension HATTIE INGRAM MD 12/02/21 0948: CARDIO Progress Notes Assessment Assessment Patient seen and examined 12/01/2020. Agree with ETIQUETTE COACH's assessment and plan. Chest pain with atypical features. Myocardial infarction ruled out. PAF s/p cardioversion, presently maintaining sinus rhythm. Continue flecainide for rhythm maintenance and Eliquis for stroke prophylaxis. Chronic diastolic heart failure clinically well compensated. Plan outpatient ischemic evaluation with primary foam fabricator SIXTO DO APRN Dec 01, 2021 10:56 HATTIE INGRAM MD Dec 02, 2021 09:48
[2021-12-01] MEDS ORDERED: DILT120C99 PO (11:27)
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
--- NOTE | 2021-12-01 13:30 | NUR ---
SS following for discharge planning. SS reviewed pt chart and discussed with pt RN. Pt is from home and is currently requiring oxygen at three liters nasal canula. COVID19 negative. Discharge order on the chart for home with self care. Pt reported that she has oxygen through [facility] and has no tank for transportation to home. No tank available in hospital. SS contacted [facility] and discussed. [facility] reported that pt has several tanks at home and they are unable to deliver one at this time. Pt notified and requesting transportation to home. Pt will discharge today and return to home via [facility] between 1430 and 1500. Pt's RN notified.
[2021-12-01 15:00] VITALS: BP 133/57
== END 2021-12-01 14:59 | disposition home or self-care (01) | DRG 309 ==
LOC: ER 03:49 → 6 SOUTH 05:25
PROVIDERS: ADMIT Internal Medicine; ATTEND Internal Medicine
PROC: 5A09357 Assistance with Respiratory Ventilation, Less than 24 Consecutive Hours, Continuous Positive Airway Pressure (ICD-10-PCS; principal; 2021-12-01)
DX: I48.92 Unspecified atrial flutter (principal); I50.32 Chronic diastolic (congestive) heart failure; J96.11 Chronic respiratory failure with hypoxia; Z68.44 Body mass index [BMI] 60.0-69.9, adult; E11.9 Type 2 diabetes mellitus without complications; I47.1 Supraventricular tachycardia; E66.01 Morbid (severe) obesity due to excess calories; E78.00 Pure hypercholesterolemia, unspecified; E78.5 Hyperlipidemia, unspecified; E83.42 Hypomagnesemia; F31.9 Bipolar disorder, unspecified; D86.9 Sarcoidosis, unspecified; F43.10 Post-traumatic stress disorder, unspecified; G47.33 Obstructive sleep apnea (adult) (pediatric); I11.0 Hypertensive heart disease with heart failure; I27.20 Pulmonary hypertension, unspecified; I44.0 Atrioventricular block, first degree; I45.4 Nonspecific intraventricular block; I48.0 Paroxysmal atrial fibrillation; J45.909 Unspecified asthma, uncomplicated; Z20.822 Contact with and (suspected) exposure to COVID-19; Z79.899 Other long term (current) drug therapy; Z87.891 Personal history of nicotine dependence; Z99.81 Dependence on supplemental oxygen; M19.90 Unspecified osteoarthritis, unspecified site; R07.89 Other chest pain; Z98.51 Tubal ligation status
CPT/HCPCS: 36415; 71045; 80048; 80053; 82962; 83735; 83880; 84484; 85025; 85610; 85730; 87426; 93005; 94660; 96374; 99285; J1815; J3475; J3490; U0003; U0005; 97116-GP; G0378